=== PATIENT | male | born 1975 | race African-American/Black ===

== ENCOUNTER 2021-11-23 11:19 | Outpatient (CLI) | payer OTHER, SELFPAY ==
[2021-11-23 19:35] LABS: Alanine Aminotransferase 29 U/L (6-50); Albumin Level 4.2 g/dL (3.5-5.1); Alkaline Phosphatase 89 U/L (38-126); Anion Gap 8 mmol/L (8-16); Aspartate Amino Transferase 36 U/L (17-59); Bilirubin,Total 1.7 mg/dL (0.2-1.3); Blood Urea Nitrogen 15 mg/dL (9-20); Calcium 8.9 mg/dL (8.4-10.2); Carbon Dioxide 29 mmol/L (22-30); Chloride 97 mmol/L (98-107); Cholesterol 177 mg/dL (0-200); Estimated Glomerular Filt Rate > 60; Glucose 263 mg/dL (65-110); HDL Direct 56 mg/dL; Potassium 4.1 mmol/L (3.4-5.0); Sodium 134 mmol/L (137-145); Triglycerides 98 mg/dL (<150)
[2021-11-23 19:51] LABS: LDL Cholesterol Direct 76 mg/dL
[2021-11-23 19:57] LABS: Thyroid Stimulating Hormone 0.679 uIU/mL (0.465-4.680)
[2021-11-23 20:04] LABS: HIV 1/2 Ab P24 Ag Result Negative (Negative)
[2021-11-23 20:09] LABS: Basophils Absolute Auto 0.1 K/mm3 (0.0-0.1); Basophils Percent Auto 0.9 % (0.2-1.2); Eosinophils Absolute Auto 0.2 K/mm3 (0-0.3); Eosinophils Percent Auto 2.4 % (0-4.4); Hematocrit 48.8 % (42.0-52.0); Hemoglobin 16.3 g/dL (14.0-18.0); Immature Granulocyte Absolute 0.02 K/mm3 (0.00-0.031); Immature Granulocyte Percent A 0.2 % (0-0.5); Lymphocytes Absolute Auto 2.05 K/mm3 (0.9-3.2); Lymphocytes Percent Auto 25.5 % (18.3-44.2); Mean Corpuscular HGB Conc 33.4 g/dl (32-36); Mean Corpuscular Hemoglobin 27.6 pg (26-34); Mean Corpuscular Volume 82.7 fl (80-100); Mean Platelet Volume 11.1 fl (7.4-10.4); Monocytes Absolute Auto 0.6 K/mm3 (0.1-0.6); Monocytes Percent Auto 7.5 % (2.6-8.5); Neutrophils Absolute Auto 5.1 K/mm3 (1.3-6.7); Neutrophils Percent Auto 63.5 % (45.5-73.1); Platelet Count Result 287 k/mm3 (150-375); Red Cell Distribution Width 12.5 % (11.5-14.5); White Blood Count 8.1 K/mm3 (4.5-10.0)
[2021-11-23 20:43] LABS: Hepatitis B Surface Anti Res Negative; Hepatitis C Virus Antibody Negative (Negative)
[2021-11-24 06:20] LABS: Rapid Plasma Reagin Non-Reactive (NonReactive)
[2021-11-24 13:24] LABS: Hemoglobin A1C 11.2 % (<5.7)
== END 2021-11-23 15:23 | disposition home or self-care (01) ==
PROVIDERS: PCP Nurse Practitioner Family; Visit Provider Nurse Practitioner Family
DX: R73.01 Impaired fasting glucose (principal); I10 Essential (primary) hypertension; R53.83 Other fatigue; E55.9 Vitamin D deficiency, unspecified
CPT/HCPCS: 36415; 80053; 80061; 82306; 83036; 84443; 85025; 86592; 86703; 86706; 86803; 87491; 87591; G0432

== ENCOUNTER 2022-02-08 11:30 | Outpatient (CLI) | payer OTHER, SELFPAY ==
[2022-02-08 18:52] LABS: Hemoglobin A1C 7.4 % (<5.7)
[2022-02-12 19:23] LABS: HIV DNA PCR (Qual) Not Detected (Not Detected)
== END 2022-02-08 11:31 | disposition home or self-care (01) ==
LOC: ANHGOSHLAB 11:32
PROVIDERS: PCP Nurse Practitioner Family; Visit Provider Nurse Practitioner Family
DX: E11.9 Type 2 diabetes mellitus without complications (principal); Z11.3 Encounter for screening for infections with a predominantly sexual mode of transmission
CPT/HCPCS: 36415; 83036; 87535

== ENCOUNTER 2023-04-06 09:26 | Outpatient (CLI) | payer OTHER, SELFPAY ==
[2023-04-06 19:01] LABS: Basophils Absolute Auto 0.1 K/mm3 (0.0-0.1); Basophils Percent Auto 1.2 % (0.2-1.2); Eosinophils Absolute Auto 0.2 K/mm3 (0-0.3); Eosinophils Percent Auto 4.8 % (0-4.4); Hematocrit 49.5 % (42.0-52.0); Hemoglobin 15.8 g/dL (14.0-18.0); Hemoglobin A1C 7.1 % (<5.7); Immature Granulocyte Absolute 0.01 K/mm3 (0.00-0.031); Immature Granulocyte Percent A 0.2 % (0-0.5); Lymphocytes Absolute Auto 1.56 K/mm3 (0.9-3.2); Lymphocytes Percent Auto 31.4 % (18.3-44.2); Mean Corpuscular HGB Conc 31.9 g/dl (32-36); Mean Corpuscular Volume 87.6 fl (80-100); Monocytes Absolute Auto 0.5 K/mm3 (0.1-0.6); Monocytes Percent Auto 9.7 % (2.6-8.5); Neutrophils Absolute Auto 2.6 K/mm3 (1.3-6.7); Neutrophils Percent Auto 52.7 % (45.5-73.1); Platelet Count Result 224 k/mm3 (150-375); Red Blood Count 5.65 M/mm3 (4.6-6.20); Red Cell Distribution Width 13.2 % (11.5-14.5)
[2023-04-06 19:43] LABS: Alanine Aminotransferase 30 U/L (6-50); Alkaline Phosphatase 77 U/L (38-126); Anion Gap 5 mmol/L (8-16); Aspartate Amino Transferase 31 U/L (17-59); Bilirubin,Total 0.6 mg/dL (0.2-1.3); Blood Urea Nitrogen 11 mg/dL (9-20); Calcium 8.9 mg/dL (8.4-10.2); Carbon Dioxide 29 mmol/L (22-30); Chloride 107 mmol/L (98-107); Cholesterol 151 mg/dL (0-200); Estimated Glomerular Filt Rate > 60; Glucose 117 mg/dL (65-110); HDL Direct 56 mg/dL; Potassium 4.4 mmol/L (3.4-5.0); Sodium 141 mmol/L (137-145); Triglycerides 74 mg/dL (<150)
[2023-04-06 19:54] LABS: LDL Cholesterol Direct 62 mg/dL
[2023-04-09 19:10] LABS: PSA, Free 0.36 ng/mL
[2023-04-10 10:42] LABS: Vitamin D 1,25 (OH)2 Total 64 pg/mL (18-72); Vitamin D2 1,25 (OH)2 <8 pg/mL; Vitamin D3 1,25 (OH)2 64 pg/mL
== END 2023-04-06 09:27 | disposition home or self-care (01) ==
LOC: ANHGOSHLAB 09:27
PROVIDERS: PCP Family Medicine; Visit Provider Nurse Practitioner Family
DX: Z00.00 Encounter for general adult medical examination without abnormal findings (principal); Z12.5 Encounter for screening for malignant neoplasm of prostate; E11.9 Type 2 diabetes mellitus without complications; E55.9 Vitamin D deficiency, unspecified; I10 Essential (primary) hypertension
CPT/HCPCS: 36415; 80053; 80061; 82652; 83036; 84153; 84154; 84443; 85025

== ENCOUNTER 2023-09-26 09:51 | Emergency (ER) | payer OTHER, SELFPAY ==
--- NOTE | ~2023-09-26 | XR_ITS ---
EXAMINATION: XR foot LT min 3V DATE: 09/26/2023 11:09 INDICATION: Left foot infection. Assess for osteomyelitis TECHNIQUE: Dorsoplantar, two oblique and lateral views of the left foot were obtained. COMPARISON: None. FINDINGS: There is soft tissue gas extending from the fifth toe proximally along the dorsolateral aspect of the fifth metatarsal to the dorsolateral aspect of the left ankle and hindfoot with overlying soft tissu e swelling which raises concern for necrotizing fasciitis. The proximal most extent gas on the latera l projection is approximately 2 cm above level of the tibiotalar joint line. There is suggestion of c ortical erosion at the dorsal metaphysis at the base of the left fifth proximal phalanx which is susp icious for osteomyelitis. Bone alignment is normal. No fracture. Mild polyarticular osteoarthritis in the left mid and forefoot. IMPRESSION: 1. Cortical erosion at the dorsal base of the left fifth proximal phalanx suspicious for ostomy myeli tis. 2. Soft tissue gas tracking from the fifth toe along the dorsolateral aspect of the left foot and ank le which is concerning for possible necrotizing fasciitis. This and the suspected osteomyelitis were discussed with Dr. Mota at 11:20 AM. Reviewed, dictated and finalized at location A. IMPRESSION: 1. Cortical erosion at the dorsal base of the left fifth proximal phalanx suspi cious for ostomy myelitis. 2. Soft tissue gas tracking from the fifth toe along the dorsolateral aspect of the left foot and ankle which is concerning for possible necrotizing fasciitis . This and the suspected osteomyelitis were discussed with Dr. Mota at 11:20 AM.
[2023-09-26 10:03] VITALS: BP 147/84; PULSE 106; RESP 15; TEMP 36.6; O2SAT 100
--- NOTE | 2023-09-26 10:07 | ED.WOUNDLAC ---
HPI - Wound/Laceration General Chief Complaint: Extremity Injury, Lower <Jordan Guevara APRN - Last Filed: 09/26/23 15:19> Stated Complaint: left foot pain/blisters <Jordan Guevara APRN - Last Filed: 09/26/23 15:19> Time Seen by Provider: 09/26/23 10:00 <Jordan Guevara APRN - Last Filed: 09/26/23 15:19> Source: patient <Jordan Guevara APRN - Last Filed: 09/26/23 15:19> Mode of arrival: ambulatory <Jordan Guevara APRN - Last Filed: 09/26/23 15:19> Limitations: no limitations <Jordan Guevara APRN - Last Filed: 09/26/23 15:19> History of Present Illness HPI narrative: Delvin is a 48-year-old male patient presenting to the emergency room complaints of a wound infection to the left foot. He reports he had blisters to the left foot he pop does blisters on either September 11 3rd September 12. Does have history of diabetes. Has redness and swelling to the left foot and left lower extremity with 2+ pitting edema. Denies any fever but has had some sweats. Wound is draining white clear discharge- smells like Pseudomonas. History of type 2 diabetes, hypertension, anxiety, and IBS-C <Jordan Guevara APRN - Last Filed: 09/26/23 15:19> Related Data Home Medications: Home Medications Medication Instructions Recorded Confirmed ibuprofen 400 mg tablet 400 mg PO .PRN 11/23/21 07/25/23 <Jordan Guevara APRN - Last Filed: 09/26/23 15:19> Allergies/Adverse Reactions: Allergies Allergy/AdvReac Type Severity Reaction Status Date / Time No Known Allergies Allergy Verified 09/26/23 10:07 <Jordan Guevaar APRN - Last Filed: 09/26/23 15:19> Review of Systems Review of Systems: Pertinent positives per HPI. Patient denies any fever, chills, rash, headache, visual changes, dizziness, cough, runny nose, sore throat, shortness of breath, chest pain, palpitations, nausea, vomiting, diarrhea, constipation, abdominal pain, or any urinary issues. 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 There is no relevant family history pertinent to the patient complaint. <Jordan Guevara APRN - Last Filed: 09/26/23 15:19> Exam Narrative: General: Well-developed, morbidly obese, in no apparent distress Head: Normocephalic, atraumatic. Cardio: Regular rate and rhythm, s1 and s2 normal, no murmur a
[2023-09-26 10:38] VITALS: BP 135/83; PULSE 103; RESP 15; O2SAT 98
[2023-09-26 10:44] LABS: Basophils Absolute Auto 0.2 K/mm3 (0.0-0.1); Basophils Percent Auto 0.4 % (0.2-1.2); Hematocrit 38.4 % (42.0-52.0); Hemoglobin 12.5 g/dL (14.0-18.0); Immature Granulocyte Absolute 1.55 K/mm3 (0.00-0.031); Immature Granulocyte Percent A 4.3 % (0-0.5); Lymphocytes Absolute Auto 0.73 K/mm3 (0.9-3.2); Mean Corpuscular HGB Conc 32.6 g/dl (32-36); Mean Corpuscular Hemoglobin 28.1 pg (26-34); Mean Corpuscular Volume 86.3 fl (80-100); Mean Platelet Volume 9.6 fl (7.4-10.4); Monocytes Absolute Auto 1.9 K/mm3 (0.1-0.6); Monocytes Percent Auto 5.4 % (2.6-8.5); Neutrophils Absolute Auto 31.8 K/mm3 (1.3-6.7); Neutrophils Percent Auto 87.9 % (45.5-73.1); Platelet Count Result 433 k/mm3 (150-375); Red Blood Count 4.45 M/mm3 (4.6-6.20); Red Cell Distribution Width 13.3 % (11.5-14.5); White Blood Count 36.2 K/mm3 (4.5-10.0)
[2023-09-26 10:57] LABS: Lactic Acid Reflex 1.4 mmol/L (0.7-2.0)
[2023-09-26] MEDS: metroNIDAZOLE 500 MG/ISO 100ML 500 MG/100 ML BAG 100 MG IVPB (10:57)
[2023-09-26] MEDS: CEFEPIME 2 GM/NS 50 ML 2 GM/50 ML BAG IVPB (10:57)
[2023-09-26 11:08] LABS: INR 1.4; Prothrombin Time 17.8 Seconds (11.1-14.7)
[2023-09-26 11:09] LABS: Partial Thromboplastin Time 32.9 Seconds (22.3-36.8)
[2023-09-26 11:39] LABS: Alanine Aminotransferase 41 U/L (6-50); Albumin Level 3.4 g/dL (3.5-5.1); Alkaline Phosphatase 132 U/L (38-126); Anion Gap 11 mmol/L (4-12); Aspartate Amino Transferase 35 U/L (17-59); Bilirubin,Total 1.1 mg/dL (0.2-1.3); Blood Urea Nitrogen 34 mg/dL (9-20); CRP 38.8 mg/dL (<1.0); Calcium 9.1 mg/dL (8.4-10.2); Carbon Dioxide 21 mmol/L (22-30); Chloride 102 mmol/L (98-107); Estimated CRCL calculation 88 ml/min; Estimated Glomerular Filt Rate > 60; Glucose 293 mg/dL (65-110); Potassium 4.7 mmol/L (3.4-5.0); Sodium 134 mmol/L (137-145)
[2023-09-26] MEDS: VANCOMYCIN 1,250 MG/NS 250 ML 1,250 MG/250 ML BAG 166.67 MG IVPB ×2 (12:04→13:46)
[2023-09-26 12:06] VITALS: BP 139/83; PULSE 96; RESP 15; O2SAT 99
[2023-09-26] MEDS: ONDANSETRON INJ 4 MG/2 ML VIAL IV PUSH (12:35)
[2023-09-26] MEDS: MORPHINE SULFATE (*CRX) 4 MG/ML INJ IV PUSH (12:38)
[2023-09-26 12:40] VITALS: BP 123/84; PULSE 104; RESP 20; O2SAT 100
--- NOTE | 2023-09-26 13:15 | PM.CNGS ---
Assessment and Plan Assessment and plan (1) Necrotizing fasciitis of ankle and foot: Code(s): M72.6 - Necrotizing fasciitis Status: Acute Assessment and Plan: Long discussion with patient and family regarding likely need of amputation, the patient would like transferred to tertiary care facility for further care, will set up for transfer and continued antibiotics (2) Type 2 diabetes mellitus without complications: Onset Date: ~11/2021 Qualifiers: Diabetes mellitus [facility] insulin use: without parts counterman use Qualified Code(s): E11.9 - Type 2 diabetes mellitus without complications Code(s): E11.9 - Type 2 diabetes mellitus without complications Status: Acute Assessment and Plan: will need tight blood sugar control History of Present Illness Consult details Consult date: 09/26/23 Reason for consult: wound care Requesting physician: Jordan Guevara APRN Narrative: The patient is a 48-year-old male with multiple medical issues presenting to the emergency department complaining of worsening left foot infection. The patient reports that he initially had some blisters on his left foot approximately 2 weeks ago. He reports that these blisters popped and he has had worsening drainage, swelling, pain over this time. The patient does have uncontrolled diabetes. Workup in the emergency department, including imaging, is significant for left foot 5th toe osteomyelitis with a necrotizing wound infection. 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 Occupation/Education: occupation Gender identity (if verbalized by the patient): Male Agree to blood products: Yes Meds Home Medications and Allergies Home Medications Medication Instructions Recorded Confirmed Type ibuprofen 400 mg tablet 400 mg PO .PRN 11/23/21 07/25/23 History amlodipine 2.5 mg-benazepril 10 mg 1 cap PO DAILY #90 caps 02/11/23 07/25/23 Rx capsule empagliflozin 25 mg tablet 25 mg PO DAILY #30 tabs 06/24/23 07/25/23 Rx (Jardiance) metformin 500 mg tablet,extended 500 mg PO DAILY #30 tabs 06/24/23 07/25/23 Rx release 24 hr glipizide 2.5 mg tablet, extended 2.5 mg PO DAILY #90 tabs 09/26/23 Rx release 24 hr Allergies Allergy/AdvReac Type Severity Reaction Status Date / Time No Known Allergies Allergy Verified 09/26/23 10:07 Vital Signs Vital Signs - 24 hr 09/26/23 10:03 09/26/23 10:38 09/26/23 12:06 Temperature 36.6 C Pulse Rate 106 H 103 H 96 Respiratory Rate 15 15 15 Blood Pressure 147/84 H 135/83 139/83 Pulse Oximetry 100 98 99 Oxygen Delivery Room Air 09/26/23 12:40 Temperature Pulse Rate 104 H Respiratory Rate 20 Blood Pressure 123/84 Pulse Oximetry 100 Oxygen Delivery Exam Const: General: cooperative, acute distress
[2023-09-26] MEDS: SODIUM CHLORIDE 0.9% IV 1,000 ML 150 ML IV CONT (13:45)
[2023-09-26 13:46] VITALS: BP 136/82; PULSE 100; RESP 19; O2SAT 100
--- NOTE | 2023-09-26 13:59 | PC.NURSE ---
pt accepted at [facility] Placed on waitlist
[2023-09-26 15:43] VITALS: BP 136/86; PULSE 103; RESP 19; TEMP 36.4; O2SAT 100
== END 2023-09-26 15:53 | disposition short-term general hospital (02) ==
PROVIDERS: Emergency Provider Nurse Practitioner Family; PCP Family Medicine
DX: E11.69 Type 2 diabetes mellitus with other specified complication (principal); M72.6 Necrotizing fasciitis; M86.9 Osteomyelitis, unspecified; L03.116 Cellulitis of left lower limb; E11.65 Type 2 diabetes mellitus with hyperglycemia; I10 Essential (primary) hypertension; K58.1 Irritable bowel syndrome with constipation; E66.01 Morbid (severe) obesity due to excess calories; Z68.41 Body mass index [BMI] 40.0-44.9, adult; Z79.84 Long term (current) use of oral hypoglycemic drugs
CPT/HCPCS: 36415; 73630; 80053; 83605; 85025; 85610; 85730; 86140; 87040; 87070; 87077; 87147; 87186; 87205; 96365; 96366; 96367; 96375; 99285; J0692; J1836; J2270; J2405; J3370; J7030

== ENCOUNTER 2023-11-07 19:42 | Emergency (ER) | payer OTHER, SELFPAY ==
--- NOTE | ~2023-11-07 | CT_ITS ---
CT OF right lower extremity EXAMINATION: CT LE RT w con DATE: 11/07/2023 22:56 INDICATION: Diabetic foot ulcer, bullae, history of necrotizing fasciitis TECHNIQUE: Computed tomography (CT) of the right lower extremity was performed with 100 mL Omnipaque 350 intravenous contrast. Automated exposure control and iterative reconstruction technique were empl oyed. The dose-length product was 1197.94 mGy-cm. COMPARISON: None FINDINGS: No fracture or dislocation. Mild Achilles enthesopathy. Mild degenerative change in the kne e and multiple midfoot joints as well as the first MTP joint. No osseous erosion. No suspicious perio steal change. Old anterior calcaneal process fracture. Small lateral cutaneous vesicle at the level o f the fibular head. Mild subcutaneous edema in the lower extremity. Scattered likely venous calcifica tions in the subcutaneous fat of the lower extremity. Mild dermal thickening with more focal subjacen t subcutaneous stranding over the anteromedial ankle. The flexor and extensor tendons are intact. IMPRESSION: Small lateral cutaneous vesicle at the level of the fibular head. No obvious dermal ulceration. No ab scess detected. Anterior medial ankle soft tissue changes may reflect cellulitis in the appropriate c linical context. Reviewed, dictated and finalized at location K. IMPRESSION: Small lateral cutaneous vesicle at the level of the fibular head. No obvious de rmal ulceration. No abscess detected. Anterior medial ankle soft tissue changes may reflect cellulitis in the appropriate clinical context.
[2023-11-07 19:50] VITALS: BP 134/88; PULSE 99; RESP 20; TEMP 36.1; O2SAT 100
[2023-11-07 21:58] LABS: Basophils Absolute Auto 0.1 K/mm3 (0.0-0.1); Eosinophils Absolute Auto 0.2 K/mm3 (0-0.3); Hematocrit 46.1 % (42.0-52.0); Hemoglobin 14.9 g/dL (14.0-18.0); Immature Granulocyte Absolute 0.01 K/mm3 (0.00-0.031); Immature Granulocyte Percent A 0.1 % (0-0.5); Lymphocytes Percent Auto 33.2 % (18.3-44.2); Mean Corpuscular HGB Conc 32.3 g/dl (32-36); Mean Corpuscular Hemoglobin 28.9 pg (26-34); Mean Corpuscular Volume 89.5 fl (80-100); Mean Platelet Volume 10.4 fl (7.4-10.4); Monocytes Absolute Auto 0.6 K/mm3 (0.1-0.6); Monocytes Percent Auto 7.6 % (2.6-8.5); Neutrophils Percent Auto 55.1 % (45.5-73.1); Platelet Count Result 351 k/mm3 (150-375); Red Blood Count 5.15 M/mm3 (4.6-6.20); Red Cell Distribution Width 14.3 % (11.5-14.5); White Blood Count 7.2 K/mm3 (4.5-10.0)
[2023-11-07 22:11] LABS: Anion Gap 8 mmol/L (4-12); Blood Urea Nitrogen 16 mg/dL (9-20); CRP < 0.5 mg/dL (<1.0); Calcium 9.4 mg/dL (8.4-10.2); Carbon Dioxide 30 mmol/L (22-30); Chloride 102 mmol/L (98-107); Estimated CRCL calculation 141 ml/min; Estimated Glomerular Filt Rate > 60; Glucose 96 mg/dL (65-110); Potassium 4.5 mmol/L (3.4-5.0); Sodium 140 mmol/L (137-145)
[2023-11-07 22:24] LABS: Erythrocyte Sedimentation Rate 13 mm/hr (0-20)
--- NOTE | 2023-11-07 22:40 | ED.SKABFB ---
HPI - Skin/Abscess/Foreign Bdy General Chief complaint: Skin/Abscess/Foreign Body Stated complaint: blister/sore to right foot Time Seen by Provider: 11/07/23 21:34 Source: patient Mode of arrival: wheelchair Limitations: no limitations History of Present Illness HPI narrative: This is a 48 year old male that presents to the ER for right foot wound. Reports he first noticed it this morning. He also noticed today that he has a blister on the right leg lateral to the knee. Reports recent history of necrotizing fasciitis of the left lower extremity requiring amputation of the left foot. Reports some drainage of the wound. Denies fevers. Related Data Home Medications Medication Instructions Recorded Confirmed ascorbic acid (vitamin C) 500 mg 500 mg PO DAILY 10/09/23 10/22/23 tablet fluconazole 200 mg tablet 400 mg PO DAILY 10/09/23 10/22/23 insulin glargine 100 unit/mL 10 unit subcut QHS 10/09/23 10/22/23 subcutaneous solution (Lantus U-100 Insulin) lidocaine 4 % topical patch 2 patch topical DAILY 10/09/23 10/22/23 methocarbamol 500 mg tablet 500 mg PO TID 10/09/23 10/22/23 multivitamin with folic acid 400 1 tablet PO DAILY 10/09/23 10/22/23 mcg tablet tirzepatide 2.5 mg/0.5 mL 2.5 mg subcut WEEKLY 10/09/23 10/22/23 subcutaneous pen injector (Mounjaro) Allergies Allergy/AdvReac Type Severity Reaction Status Date / Time lactose Allergy Diarrhea Verified 10/22/23 09:47 Review of Systems Review of Systems: CONSTITUTIONAL: Denies fever SKIN: Reports redness and swelling All systems reviewed & are unremarkable except as noted in HPI and below PMFSH Past Medical History Medical History Anxiety Essential hypertension Irritable bowel syndrome with constipation Type 2 diabetes mellitus without complications (~11/2021) Family History Family History Mother Hypertension Diabetes mellitus Grandparent Hypertension Social History Social History Social History: 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 HEAD: Normocephalic, atraumatic. EYES: EOMI. CHEST: No respiratory distress. HEART: Regular rate EXTREMITIES: Normal range of motion. Left BKA. Right foot with 1cm circular ulceration to the dorsal surface. Normal DP pulse. Normal sensation. Bullae to the right lateral knee SKIN: Warm, dry, no rash. NEURO: No focal deficits. Alert and oriented x3. PSYCH: Normal mood and affect Course Course Emergency Course: Patient and family updated on workup and agree with plan of care Vital Signs Vital signs: Vital Signs Temperature 97 F L 11/07/23 19:50 Pulse Rate 99 11/07/23 19:50 Respiratory Rate 11/07/23 19:50 Blood Pressure 134/88 11/07/23 19:50 Pulse Oximetry 100 11/07/23 19:50 Temperature 97 F L 11/07/23 19:50 Pulse Rate 99 11/07/23 19:50 Respiratory Rate 11/07/23 19:50 Blood Pressure 134/88 11/07/23 19:50 Pulse Oximet
[2023-11-07 22:57] LABS: Creatine Kinase 90 U/L (55-170)
[2023-11-08] MEDS: DOXYCYCLINE HYCLATE 100 MG TABLET PO (00:06)
== END 2023-11-08 00:12 | disposition home or self-care (01) ==
PROVIDERS: Emergency Provider Physician Assistant; PCP Student in an Organized Health Care Education/Training Program
DX: L03.115 Cellulitis of right lower limb (principal); I10 Essential (primary) hypertension; E11.9 Type 2 diabetes mellitus without complications; K58.9 Irritable bowel syndrome, unspecified; Z79.4 Long term (current) use of insulin; Z79.85 Long-term (current) use of injectable non-insulin antidiabetic drugs; Z79.899 Other long term (current) drug therapy
CPT/HCPCS: 36415; 73701; 80048; 82550; 85025; 85652; 86140; 87070; 87077; 87186; 87205; 99284; A9270; Q9967

== ENCOUNTER 2024-04-10 15:21 | Outpatient (CLI) | payer OTHER, SELFPAY ==
[2024-04-10 16:14] LABS: Alanine Aminotransferase 24 U/L (6-50); Albumin Level 4.3 g/dL (3.5-5.1); Alkaline Phosphatase 94 U/L (38-126); Anion Gap 2 mmol/L (4-12); Aspartate Amino Transferase 42 U/L (17-59); Bilirubin,Total 1.5 mg/dL (0.2-1.3); Blood Urea Nitrogen 11 mg/dL (9-20); Calcium 9.4 mg/dL (8.4-10.2); Carbon Dioxide 30 mmol/L (22-30); Chloride 108 mmol/L (98-107); Cholesterol 165 mg/dL (0-200); Estimated Glomerular Filt Rate > 60; Glucose 83 mg/dL (65-110); HDL Direct 48 mg/dL; Potassium 4.5 mmol/L (3.4-5.0); Sodium 140 mmol/L (137-145); Triglycerides 88 mg/dL (<150)
[2024-04-10 16:22] LABS: Hemoglobin A1C 5.9 % (<5.7)
[2024-04-10 16:25] LABS: LDL Cholesterol Direct 69 mg/dL
[2024-04-13 19:18] LABS: Testosterone Free 57.2 pg/mL (46.0-224.0)
[2024-04-13 20:48] LABS: Testosterone Total 359 ng/dL (250-1100)
== END 2024-04-10 15:22 | disposition home or self-care (01) ==
PROVIDERS: PCP Student in an Organized Health Care Education/Training Program; Visit Provider Student in an Organized Health Care Education/Training Program
DX: E11.65 Type 2 diabetes mellitus with hyperglycemia (principal); I10 Essential (primary) hypertension; E66.01 Morbid (severe) obesity due to excess calories; Z68.41 Body mass index [BMI] 40.0-44.9, adult; R53.83 Other fatigue
CPT/HCPCS: 36415; 80053; 80061; 83036; 84402; 84403

== ENCOUNTER 2024-09-13 15:11 | Outpatient (CLI) | payer OTHER, SELFPAY ==
--- OUTSIDE RECORDS SUMMARY | 2024-09-13 15:13 | XMS_ITS | Clinical Summary ---
Author Organization [facility] Address [address] [place] [address] Care Team Providers Care Manager Community Name Role Phone Reji Cantu MD Primary Care Provider Allergies No known active allergies Medications acetaminophen 500 mg capsule Take 2 capsules (1,000 mg total) by mouth every 6 (six) hours 4 Active ascorbic acid (VITAMIN C) 500 mg tablet,chewable Take 1 tablet/chew tab (500 mg total) by mouth daily for 14 days 4 Active enoxaparin (LOVENOX) 40 mg/0.4 mL syringeIndicati ons:Deep Vein Thrombosis Prevention Inject 0.4 mL (40 mg total) under the skin every 12 (twelve) hours 4 Active Additional Information Patient not taking.Reported on 10/26/2023 gabapentin (NEURONTIN) 600 mg tablet Take 1 tablet (600 mg total) by mouth 3 (three) times a day 4 10/07/19 25 Active ibuprofen (ADVIL,MOTRIN) 600 mg tablet Take 1 tablet (600 mg total) by mouth 3 (three) times a day 4 Active lidocaine (ASPERCREME) 4 % adhesive patch,medicated Place 2 patches on the skin daily 4 Active Additional Information Patient not taking.Reported on 10/26/2023 methocarbamoL (ROBAXIN) 500 mg tablet Take 1 tablet (500 mg total) by mouth 3 (three) times a day 4 Active multivitamin with folic acid 400 mcg tablet Take 1 tablet by mouth daily 4 10/08/19 25 Active polyethylene glycol (MIRALAX) 17 gram/dose bulk powderIndicatio ns:constipation Take 17 g by mouth daily 4 Active Additional Information Patient not taking.Reported on 10/26/2023 senna-docusate (PERICOLACE) 8.6-50 mg Take 1 tablet by mouth 2 (two) times a day 4 Active Additional Information Patient not taking.Reported on 10/26/2023 zinc sulfate (ZINCATE) 50 mg zinc (220 mg) capsule Take 1 capsule (220 mg total) by mouth daily for 14 days 4 Active oxyCODONE (ROXICODONE) 5 mg immediate release tabletIndicatio ns:Pain Take 1 tablet (5 mg total) by mouth every 4 (four) hours as needed for pain 4 Active Additional Information Patient not taking.Reported on 11/11/2023 tirzepatide (Mounjaro) 2.5 mg/0.5 mL pen injector Inject 0.5 mL (2.5 mg total) under the skin every 7 days for 30 days, THEN 1 mL (5 mg total) every 7 days. 53 mL 4 11/08/19 25 Active insulin glargine (LANTUS) 100 unit/mL (3 mL) pen for injection Inject 10 Units under the skin nightly 15 mL 4 Active pen needle, diabetic (Pen Needle) 32 gauge x 5/32 needle Use as directed once a day. 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 Admitted at [facility] 09/25-10/10/2023 after presenting with LLE pain and swelling, found to have necrotizing fasciitis s/p BKA 09/25, repeat debridements and 09/27, 09/29 (with additional 5cm resection), 10/03, and 10/04 (formalization). Initial tissue and bone cultures positive for Group B Streptococcus and mixed aerobic and anaerobic micro, tissue and tibia bone cultures 10/03 positive for Burton albicans. Pathology from [facility] formalization on 10/04 showed residual acute osteomyelitis, soft tissue with acute and chronic inflammation and necrosis. 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 A1C 7.5 (09/26) - home medications: metformin 500 mg daily, Jardiance 25 mg daily, Glipizide ER 2.5 mg daily - managed by PCP Dr. Pierre - hold PO home medications, start sensitive scale TID AC and HS 09/27 BG 280-200 overnight, NPO for OR, endocrine consulted 09/28 BG 230-200, Flor check completed for GLP-1 09/29 NPO for OR, BG 90-100, continue current regimen 09/30 noted elevated BG last night and this morning, likely due to being NPO, but will continue to monitor 10/01 BG well controlled throughout the day 10/02 BG continue to be well controlled 140-170 10/03 Endo continues to follow; NPO orders modified 10/04 BG controlled, resume diabetic diet + insulin regimen 10/05-10/06 mild postop hyperglycemia, Endo following; DM education consulted for GLP1 teaching 10/06 however if this does not occur prior to discharge the patient is going to a facility where ongoing education can be performed; no plans to discharge with sglt2 given presentation with nsti ## Discharge Plan [ ] please consult the diabetes nurse educator to meet with him --- to teach how to use GLP-1RA injections <-- ordered 10/06 however is discharging to facility where ongoing education can take place Medication Recommendations (Please use the ADULT END DIABETES DISCHARGE order set): - Mounjaro 2.5 mg SC once weekly for first 4 weeks, after 4 weeks increase dose to 5 mg once weekly - Lantus 10 units Q HS Labs/Frequency to be Monitored: before breakfast and before dinner HbA1c every 3 months or 6 months if appropriate, Urine microalbumin/creatinine test yearly, Cholesterol panel yearly, and Dilated eye exam yearly or sooner as indicated by your provider education specialist. Recommend discontinuing glipizide and metformin at discharge. FSBG checks daily in AM, consider dexcom in outpatient setting Follow up with PCP; provide diabetes center number [phone] at discharge. Patient would like to think over if he would like to stick to PCP vs establish with endocrinology Hypertension 09/27/2023 Assessment & Plan (10/07/2023 9:36 AM CDT): - home medication amlodipine/ benazapril 2.5-10 mg daily - hold home medication for now, BP well- controlled 09/27 BP well controlled 120-110/70-80s, continue to hold home medications 09/28 BP remains well controlled, continue to hold home meds 09/30 130-170/60-90s HR 90s, restarted Amlodipine, will monitor if need to add the Benazapril component 10/01 added Lisinopril 10mg (Home Benazepril 10mg) 10/02-present: BP well controlled, continue current regimen --- transition back to combo regimen on discharge and f/u with PCP or previously established provider for ongoing management Acute pain 09/27/2023 Assessment & Plan (10/07/2023 9:35 AM CDT): - related to surgical procedure - multi-modal medical management -10/03 pain controlled on multimodal pain regimen; continue PO 10/04 pain not controlled post-op, c/o sharp and phantom pain - PRN breakthrough dilaudid + gabapentin increased 10/05 pain remains uncontrolled, given toradol overnight with minimal relief, PRN dilaudid not given - discussed care coordination 10/06 pain control improved Discharge planning issues 09/27/2023 Assessment & Plan (10/09/2023 10:20 AM CDT): - needs related to new mobility issues related to BKA - pending PT/OT, wound evaluation 09/27 OR today 09/28 Cx now growing Group B Strep- ID aware changed abx, return to OR 09/29 for additional cultures 09/29 OR 09/30 cultures pending, will need to return to the OR once the cultures finalize 10/01 awaiting RTOR date 10/02 RTOR 10/03 10/03 Washout only today; RTOR for formalization tomorrow 10/04 formalized, no vac, will discuss DC readiness/wound watch 10/05 barrier to discharge: wound watch, OK to DC Friday 10/06 barrier to discharge: none; Patient is medically stable for discharge, SW/CM updated. Discharge pending insurance authorization 10/07 facility short staffed, transfer cancelled, patient remains stable for discharge 10/08 discharge to [facility] Hyperkalemia 09/27/2023 Assessment & Plan (10/04/2023 2:57 PM CDT): - whole blood K 5.7, EKG - place on telemetry - q 4 hour potassium until corrected - furosemide, lokelma, calcium gluconate x 1 09/27 K 5.5, checked whole blood K 4.1, CTM 09/28 K 4.3 09/29 K 4.6 10/01 K 4.1, will evaluate need for Lokelma 10/02 K 3.9 discontinue Lokalema > RESOLVED Necrotizing fasciitis 09/26/2023 Assessment & Plan (10/07/2023 8:31 AM CDT): Delvin Hall is a 48 year old man with PMH of HTN, T2DM who presented to [facility] ED and then transferred to [facility] ED 09/25 after presenting with 2 weeks of progressively worsening redness and swelling of the left leg, found to have necrotizing infection s/p BKA 09/25. ID consulted for antibiotic recommendations. He popped a blister on the left small toe about 2 weeks before presentation. About 1 week later, developed progressively worsening pain and swelling of the left foot and lower leg, then chills and subjective fevers. Presented to [facility] and then transferred to [facility] 09/25 for surgical evalution of necrotizing fasciitis. CT Left lower extremity 09/25: extensive soft tissue and fascial edema in the left lower extremity with gas predominantly involving the ankle and foot, edema extending to left calf and knee most suspicious for necrotizing fasciitis. Taken emergently to the OR 09/25 for Left BKA. Intraoperatively noted purulent fluid, necrotic muscle, and signs of early osteomyelitis of the foot; guillotine incision made ~15cm below the tibial crest; wound vac placed. Left leg tissue cx 09/25: Group B Streptococcus, mixed aerobic and anaerobic micro Left leg bone cx 09/25: Group B Streptococcus Returned to OR 09/27 for debridement and wound vac exchange; noted bone marrow with signs of possible infection which was sent for culture. Left leg tissue cx 09/27: no growth Went back to OR 09/29 for resection of 5cm of tibia, fibula, and soft tissue. pathology pending Left leg tissue cx 09/29: NGTD Left leg bone cx 09/29: NGTD Underwent LLE washout and wound vac exchange on 10/03. Wound well healing with some early granulation tissue. No signs of infection -Left tibia bone bacterial and mycology cultures - burton albicans -LLE soft tissue culture - burton albicans Went to the OR 10/04 for left BKA formalization -no new cultures obtained -Pathology pending Patient with burton albicans in 3 operative cultures from 10/03, including bone cultures. Given this is in the bone and in multiple cultures, we cannot assume this is a overgrowth or contaminant. We would recommend starting patient on fluconazole. On discussion with primary team, plan is for patient to discharge tomorrow. We would recommend transitioning IV antibiotics to Augmentin and to follow up in ID clinic to discuss pathology results and possible treatment for OM. If pathology comes back as positive, patient will need 6 weeks of antibiotic coverage and 6-12 months of fungal management. Recommendations - 800mg fluconazole PO today. Then start patient on 400mg PO Q24H tomorrow -Transition ceftriaxone and metronidazole to Augmentin 875mg PO Q12H -Will reach out to ID clinic for 2 week follow up. Patient should continue on antibiotics/antifungals until seen in ID clinic -Thank you for allowing us to participate in the care of this patient. For questions or concerns, please do not hesitate to reach out. Assessment & Plan (10/09/2023 10:20 AM CDT): 09/25: OR (Cynthia) LEFT guillotine BKA, wound vac placement. 09/27 returned to the OR, Bone cultures remain NGTD, continue to follow, Vanc trough at 2300, plan return to the OR Tuesday (09/29) for formalization- then 5 days of abx after closure --09/27 OR (Cynthia) Wound debridement, wound Vac change 09/28 Bone & Tissue cultures from OR 09/25 resulted Group B strep, notified ID, stopped Vancomycin and Cefepime, started Ceftriaxone and continue Flagyl, OR Cx from 09/27 NGTD- will continue to follow, NPOpMN for OR tomorrow- will obtain additional bone cultures 09/29: OR (Alcides) LLE segmental resection, proximal bone and tissue cultures, vac placement 09/30 OR cultures pending, WVac intact, will RTOR once cultures finalize, referral to [facility] 10/01 Cx still pending, WVac intact, provided Magnesium Citrate to assure a BM 10/02 plan to return to OR tomorrow for formalization, 09/27 cultures finalized No Growth, 09/29 Cultures still pending 10/03 Culture data from 09/29 remains pending in AM, rolled to OR; washout only d/t lack of culture information, plan to RTOR tomorrow for formalization ---10/03 OR (Cynthia) L BKA washout, [place] exchange 10/04 OR (Marielena): L BKA formalization 10/05 AFVSS, wbc elevated post-op, dressing change today, plan for wound watch x3d, local wound care, pending ampushield receipt 10/06 AFVSS, wbc 12.9 from 13.3, wound unchanged - sutures intact, abx and antifungal regimen per ID, local wound care, pending ampushield receipt --- f/u [facility] for suture removal evaluation 10/25 10/[address] Cultures 09/25 BCX: No Growth Final 09/25 LLE bone - GBS, mixed micros 09/25 L leg tissue - GBS, mixed micros 09/25 LLE muscle - GBS, bacteroides vulgatus, mixed micros 09/25 LLE tissue - GBS, bacteroides vulgatus, mixed micros 09/27 L tibia bone marrow - NG final 09/29 L proximal tibia - NG final 09/29 L proximal fibula - NG final 09/29 L proximal tissue - NG final 10/03 L bone - burton albicans 10/03 LLE tissue - burton albicans Antibiotics Clindamycin (09/25-09/26) Cefepime (09/25- 09/28) Vanc (09/26- 09/28) Flagyl 09/25- 10/06 Ceftriaxone 09/28-10/06 Augmentin 10/06---> outpatient ID f/u Pathology 09/25 Lower extremity, left, below knee amputation - Skin and soft tissue with acute and chronic inflammation and necrosis 09/29 - pending 10/04 - pending Necrotizing soft tissue infection 09/26/2023 Surgical History Surgery Date Site/Laterality Comments BELOW KNEE LEG AMPUTATION Left Medical History Medical History Date Comments Diabetes mellitus (HCC) Hypertension Family History Medical History Relation Name Comments Anesthesia problems Neg Hx Malig Hypertension Neg Hx Malig Hyperthermia Neg Hx Pseudochol deficiency Neg Hx Social History Tobacco Use Types Packs/Day Years Used Date Smoking Tobacco: Never Smokeless Tobacco: Never Tobacco Cessation:Counseling Given: Not Answered AUDIT-C Answer Date Recorded Q1: How often do you have a drink containing alcohol? Never 12/09/2023 Q2: How many drinks containi ng alcohol do you have on a typical day when you are drinking? Patient does not drink Q3: How often do you have si x or more drinks on one occasion? Never 12/09/2023 Hunger Vital Sign Answer Date Recorded Within the past 12 months, y ou worried that your food would run out before you got the money to buy more. Never true 12/09/19 24 Within the past 12 months, t he food you bought just didn't last and you didn't have money to get more. Never true 12/09/2023 Personal Safety Answer Date Recorded Have you ever been in or are you currently in a harmful physical or emotional relationship or is someone making you feel afraid or unsafe? Denies 11/07/2023 Sex and Gender Information Value Date Recorded Sex Assigned at Not on file Legal Sex Male 8:46 AM [employer] Gender Identity Not on file Sexual Orientation Not on file Obstetrics History Last Filed Vital Signs Vital Sign Reading Time Taken Comments Blood Pressure 156/89 01/02/2024 10:00 AM CDT Pulse 90 01/02/2024 10:00 AM CDT Temperature 36.1 C (97 F) 01/02/2024 10:00 AM CDT Respiratory Rate 16 12/09/2023 11:3 4 AM CDT Oxygen Saturation 98% 01/02/2024 10: 00 AM CDT Inhaled Oxygen Concentration - - Weight 116.3 kg (256 lb 6.4 oz) 024 10:00 AM CDT Height 177.8 cm (5' 10) 12/09/2023 11: 34 AM CDT Body Mass Index 36.79 12/09/2023 11:34 AM CDT Plan of Treatment Health Maintenance Due Date Last Done Comments Albumin Creatinine Ratio, Urine 1973 Colon Cancer Screening-Colonoscopy 1973 Depression Screening 1973 Hepatitis C Screening 1973 Prostate Cancer Screening-PSA 1973 Dilated Eye Exam 1973 Foot Exam 1973 DTaP/Tdap/Td Vaccine (1 - Tdap) 01/19/1984 Hepatitis B Screening 1991 Regular Well Visit/Exam 18-64 1991 Pneumococcal vaccine <65 (1 of 2 - PCV) 01/19/1992 Zoster Vaccine (1 of 2) 2023 Hemoglobin A1C 03/28/2024 09/27/2023 Lipid Panel 09/26/2024 09/27/2023 eGFR 10/25/2024 10/26/2023, 09/17, 10/06/2023, Additional history exists Influenza Vaccine (Season Ended) 2024 Procedures Procedure Name Priority Date/Time Associated Diagnosis Comments EGFR Routine 10/26/2023 10:54 AM CDT Other acute osteomyelitis of left tibia (HCC) HEMOGLOBIN A1C Routine 09/27/2023 6:00 AM CDT LIPID PANEL Routine 09/27/2023 6:00 AM CDT from Last 3 Months or Most Recently Relevant to Health Maintenance Results * eGFR (10/26/2023 10:54 AM CDT) eGFR >90 >=60 mL/min/1. 73 m2 Comment: Interpretive Data Reference Interval Normal >/= 90 mL/min/1.73m2 Mildly decreased* 60 - 89 mL/min/1.73m2 Mildly to moderately decreased 45 - 59 mL/min/1.73m2 Moderately to severely decreased 30 - 44 mL/min/1.73m2 Severely decreased 15 - 29 mL/min/1.73m2 Kidney Failure < 15 mL/min/1.73m2 *Relative to young adult level Estimated glomerular filtration rate is determined by the 2020 CKD-EPI equation recommended by the National Kidney Foundation (A Unifying Approach to GFR Estimation: Recommendations of the NKF-ASK Task Force on Reassessing the Inclusion of Race in Diagnosing Kidney Disease, JASN 2020). The CKD-EPI equation should not be used for patients with unstable renal function and has not been validated in children and those over 70. Current interpretive data was last reviewed 2021. Blood 10/26/2023 10:5 4 AM CDT 10/26/2023 1:30 PM CDT us Kimmie Sanches MD LAB BLOOD ORDERABLES Final Result Performing Organization Address [facility] Co de Phone Number [facility] Department [place] [address] * (ABNORMAL) Hemoglobin A1c (09/27/2023 6:00 AM CDT) Hgb A1C 7.5(H) 4.0 - 5.6 % Estimated Average Glucose 169 mg/dL [facility] Comment: The ADA recommends reporting an estimated Average Glucose (eAG) with all Hemoglobin A1c results using the equation derived from a study of 507 normal and diabetic adults. Minority populations were underrepresented and children were not included. (Diabetes Care 2020; 43(S1): S66-S76). The eAG is not equivalent to a fasting glucose. Blood 09/27/2023 6:00 AM CDT 09/27/2023 6:16 AM CDT Tyler Marie MD LAB BLOOD ORDERABLES Danielle l Result Performing Organization Address [facility] Co de Phone Number [facility] [place] [address] * (ABNORMAL) Lipid panel (09/27/2023 6:00 AM CDT) Cholesterol 114 30 - 199 mg/dL Comment: Interpretive Data Ages < or = 19 years Acceptable: <170 mg/dL Borderline high: 170-199 mg/dL High: >or= 200 mg/dL Ages > or = 20 years Desirable: <200 mg/dL Borderline high: 200-239 mg/dL High: >or= 240 mg/dL Literature References: 1. Expert Panel on Integrated Guidelines for Cardiovascular Health and Risk Reduction in Children and Adolescents. Pediatrics 2011;128:S213 2. NCEP Expert Panel. Circulation 2004;110:227 Current Interpretive Data was last revised on 2017. Triglycerides 156(H) <=149 mg/dL [facility] Comment: Interpretive Data Ages < or = 9 years Acceptable: <75 mg/dL Borderline high: 75-99 mg/dL High: >or= 100 mg/dL Ages 10 to 20 years Acceptable: <90 mg/dL Borderline high: 90-129 mg/dL High: >or= 130 mg/dL Ages > or = 20 years Desirable: <150 mg/dL Borderline high: 150-199 mg/dL High: 200-499 mg/dL Very high: >or= 499 mg/dL Literature References: 1. Expert Panel on Integrated Guidelines for Cardiovascular Health and Risk Reduction in Children and Adolescents. Pediatrics 2011;128:S213 2. NCEP Expert Panel. Circulation 2004;110:227 Current Interpretive Data was last revised on 2017. HDL 22(L) >=40 mg/dL [facility] Comment: Interpretive Data Ages < or = 19 years Acceptable: >45 mg/dL Borderline low: 40-45 mg/dL Low: <40 mg/dL Ages > or = 20 years Desirable: >or= 60 mg/dL Low: <40 mg/dL Literature References: 1. Expert Panel on Integrated Guidelines for Cardiovascular Health and Risk Reduction in Children and Adolescents. Pediatrics 2011;128:S213 2. NCEP Expert Panel. Circulation 2004;110:227 Current Interpretive Data was last revised on 2017. LDL, calculated 61 <=129 mg/dL [facility] Comment: Interpretive Data Ages < or = 19 years Acceptable: <110 mg/dL Borderline high: 110-129 mg/dL High: >or= 130 mg/dL Ages > or = 20 years Optimal: <100 mg/dL Near optimal: 100-129 mg/dL Borderline high: 130-159 mg/dL High: >160 mg/dL Literature References: 1. Expert Panel on Integrated Guidelines for Cardiovascular Health and Risk Reduction in Children and Adolescents. Pediatrics 2011;128:S213 2. NCEP Expert Panel. Circulation 2004;110:227 Current Interpretive Data was last revised on 2017. Non-HDL Cholesterol 92 mg/dL [facility] Comment: Interpretive Data Ages < or = 19 years Acceptable: <120 mg/dL Borderline high: 120-144 mg/dL High: >145 mg/dL Ages > or = 20 years When triglycerides are >200 mg/dL, Non-HDL cholesterol is a secondary target of therapy with treatment goals that are 30 mg/dL greater than the LDL cholesterol target. Literature References: 1. Expert Panel on Integrated Guidelines for Cardiovascular Health and Risk Reduction in Children and Adolescents. Pediatrics 2011;128:S213 2. NCEP Expert Panel. Circulation 2004;110:227 Current Interpretive Data was last revised on 2017. Chol/HDL ratio 5 [facility] Blood 09/27/2023 6:00 AM CDT 09/27/2023 6:25 AM CDT us Tyler Marie MD LAB BLOOD ORDERABLES Danielle sibley Result [facility] Department [place] [address] from Last 3 Months or Most Recently Relevant to Health Maintenance Insurance [facility] [employer]O Address: [place] [address] [facility] CHOICE PLUS [facility] H[facility]/PPO Address: [facility] [address] [place] [address] Advance Directives For more information, please contact: [phone] * Full Code (Latest Code Status on File) Date Activated Date Inactivated Comments 09/27/2023 12:45 AM 10/09/2023 8:08 PM Care Teams Manager Community Relationship Specialty Start Date End Date Reji Cantu MD [id number] [facility] [address] [place] [address] PCP - General Family Practice 09/27/23
--- OUTSIDE RECORDS SUMMARY | 2024-09-13 15:13 | XMS_ITS | Referral Summary ---
Author Organization [facility] Address [address] [place] [address] Care Team Providers Care Senior Data Quality Analyst Name Role Phone Reji Cantu MD Primary [...] old man who was recently admitted at [facility] 09/25- 10/09/2023 with LLE necrotizing fascitis s/p BKA complicated by residual bacterial and fungal osteomyelitis who presents to the ID clinic for follow-up. Admitted at [facility] 09/25-10/10/2023 after presenting with LLE pain and swelling, found to have necrotizing fasciitis s/p BKA 09/25, repeat debridements and 09/27, 09/29 (with additional 5cm resection), 10/03, and 10/04 (formalization). Initial tissue and bone cultures positive for Group B Streptococcus and mixed aerobic and anaerobic micro, tissue and tibia bone cultures 10/03 positive for Burton albicans. Pathology from [facility] formalization on 10/04 showed residual acute osteomyelitis, [...] yearly or sooner as indicated by your eyelet maker. Recommend discontinuing glipizide and metformin at discharge. FSBG checks daily in AM, consider dexcom in outpatient setting Follow up with PCP; provide diabetes center number [phone] at discharge. Patient would like to think [...] remains stable for discharge 10/08 discharge to [facility] Hyperkalemia 09/27/2023 Assessment & Plan (10/04/2023 2:57 [...] to OSH ED and then transferred to [facility] ED 09/25 after presenting with 2 weeks [...] then chills and subjective fevers. Presented to [facility] and then transferred to [facility] 09/25 for surgical evalution of necrotizing fasciitis. [...] will RTOR once cultures finalize, referral to 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 The CKD-EPI equation should not be used for patients with unstable renal function and has not been validated in children and those over 70. Current interpretive data was last reviewed 2021. Blood 10/26/2023 10:5 4 AM CDT 10/26/2023 1:30 PM CDT us Kimmie Sanches MD LAB BLOOD ORDERABLES Final Result [facility] [place] [address] * (ABNORMAL) Hemoglobin A1c (09/27/2023 6:00 AM CDT) Hgb A1C 7.5(H) 4.0 - 5.6 % Estimated Average Glucose 169 mg/dL [facility] Comment: The ADA recommends reporting an estimated Average Glucose (eAG) with all Hemoglobin A1c results using the equation derived from a study of 507 normal and diabetic adults. Minority populations were underrepresented and children were not included. (Diabetes Care 2020; 43(S1): S66-S76). The eAG is not equivalent to a fasting glucose. Blood 09/27/2023 6:00 AM CDT 09/27/2023 6:16 AM CDT us Tyler Marie MD LAB BLOOD ORDERABLES Danielle l Result [facility] [place] [address] * (ABNORMAL) Lipid panel (09/27/2023 6:00 AM [...] revised on 2017. Triglycerides 156(H) <=149 mg/dL [facility] Comment: Interpretive Data Ages < or = [...] on 2017. HDL 22(L) >=40 mg/dL [facility] Comment: Interpretive Data Ages < or = [...] on 2017. LDL, calculated 61 <=129 mg/dL [facility] Comment: Interpretive Data Ages < [...] revised on 2017. Non-HDL Cholesterol 92 mg/[facility] Comment: Interpretive Data Ages < or = [...] last revised on 2017. Chol/HDL ratio 5 [facility] Blood 09/27/2023 6:00 AM CDT 09/27/2023 6:25 AM CDT Tyler Marie MD LAB BLOOD ORDERABLES Danielle sibley Result [facility] Department [place] [address] from Last 3 Months or Most Recently Relevant to Health Maintenance Insurance [facility] CHOICE PLUS [facility] CHOICE PLUS Advance Directives For more information, please contact: [phone] * Full Code (Latest Code Status on File) Date Activated Date Inactivated Comments 09/27/2023 12:45 AM 10/09/2023 8:08 PM Care Teams Senior Data Quality Analyst Relationship Specialty Start Date End Date Reji Cantu MD [address] [facility] [place] [address] [place] [address] PCP - General Family Practice 09/27/23
[2024-09-13 20:07] LABS: Alanine Aminotransferase 22 U/L (6-50); Albumin Level 3.8 g/dL (3.5-5.1); Alkaline Phosphatase 89 U/L (38-126); Anion Gap 8 mmol/L (4-12); Aspartate Amino Transferase 29 U/L (17-59); Bilirubin,Total 1.4 mg/dL (0.2-1.3); Blood Urea Nitrogen 12 mg/dL (9-20); Calcium 9.4 mg/dL (8.4-10.2); Carbon Dioxide 29 mmol/L (22-30); Chloride 105 mmol/L (98-107); Cholesterol 155 mg/dL (0-200); Estimated Glomerular Filt Rate > 60; Glucose 95 mg/dL (65-110); HDL Direct 48 mg/dL; Potassium 3.9 mmol/L (3.4-5.0); Sodium 142 mmol/L (137-145); Triglycerides 90 mg/dL (<150)
[2024-09-13 20:18] LABS: LDL Cholesterol Direct 53 mg/dL
[2024-09-13 20:27] LABS: Creatinine Urine 83.2 mg/dL
[2024-09-13 20:27] LABS: Basophils Absolute Auto 0.1 K/mm3 (0.0-0.1); Basophils Percent Auto 0.5 % (0.2-1.2); Eosinophils Absolute Auto 0.4 K/mm3 (0-0.3); Eosinophils Percent Auto 3.2 % (0-4.4); Hematocrit 45.5 % (42.0-52.0); Hemoglobin 14.4 g/dL (14.0-18.0); Immature Granulocyte Absolute 0.05 K/mm3 (0.00-0.031); Immature Granulocyte Percent A 0.4 % (0-0.5); Lymphocytes Percent Auto 10.8 % (18.3-44.2); Mean Corpuscular HGB Conc 31.6 g/dl (32-36); Mean Corpuscular Hemoglobin 27.6 pg (26-34); Mean Corpuscular Volume 87.2 fl (80-100); Mean Platelet Volume 10.7 fl (7.4-10.4); Monocytes Absolute Auto 1.2 K/mm3 (0.1-0.6); Neutrophils Absolute Auto 9.9 K/mm3 (1.3-6.7); Neutrophils Percent Auto 76.1 % (45.5-73.1); Platelet Count Result 280 k/mm3 (150-375); Red Blood Count 5.22 M/mm3 (4.6-6.20); Red Cell Distribution Width 13.1 % (11.5-14.5)
[2024-09-13 20:31] LABS: MALB Creatinine Ratio 15.7 mg/g (0-30); Microalbumin Urine Random 13.1 mg/L (0-16.7)
[2024-09-13 20:35] LABS: Prostate Specific Antigen 1.2 ng/mL (< OR = 4.0)
[2024-09-13 21:59] LABS: Hemoglobin A1C 6.4 % (<5.7)
== END 2024-09-13 15:12 | disposition home or self-care (01) ==
LOC: ANHGOSHLAB 15:11
PROVIDERS: PCP Student in an Organized Health Care Education/Training Program; Visit Provider Student in an Organized Health Care Education/Training Program
DX: Z13.220 Encounter for screening for lipoid disorders (principal); Z12.5 Encounter for screening for malignant neoplasm of prostate; E11.65 Type 2 diabetes mellitus with hyperglycemia; I10 Essential (primary) hypertension; R53.83 Other fatigue
CPT/HCPCS: 36415; 80053; 80061; 82043; 82607; 83036; 84153; 84443; 85025; G0103

== ENCOUNTER 2024-09-13 15:33 | Outpatient (CLI) | payer OTHER, SELFPAY ==
--- NOTE | ~2024-09-13 | XR_ITS ---
Right foot Technique: AP, oblique, and lateral views were obtained. Clinical History: Puncture wound Findings: No acute fracture or dislocation is seen. Osseous alignment is anatomic. Joint spaces are p reserved without erosive or degenerative change. Soft tissues are unremarkable. Impression: Unremarkable right foot radiographs. No radiopaque foreign body seen. Reviewed, dictated and finalized at [facility]. Impression: Unremarkable right foot radiographs. No radiopaque foreign body seen.
== END 2024-09-13 15:34 | disposition home or self-care (01) ==
LOC: GOSHIMG 15:33
PROVIDERS: PCP Student in an Organized Health Care Education/Training Program; Visit Provider Student in an Organized Health Care Education/Training Program
DX: S91.339A Puncture wound without foreign body, unspecified foot, initial encounter (principal); X58.XXXA Exposure to other specified factors, initial encounter
CPT/HCPCS: 73620

== ENCOUNTER 2024-09-17 00:37 | Inpatient (IN) | payer OTHER, SELFPAY ==
[2024-09-17] VITALS (19 sets, daily range): BP systolic 109–163; BP diastolic 56–94; PULSE 111–131; RESP 16–28; TEMP 36.8–38.6; O2SAT 97–100; BMI 38.9
--- NOTE | ~2024-09-17 | XR_ITS ---
XR chest PICC line 09/21/2024 15:23 Indication: PICC line placement Procedure: AP portable chest Comparison: No prior studies for comparison. Findings: PICC line tip in the SVC. Elevated right diaphragm. Borderline heart size. Mild interstitia l edema. Impression: 1: Mild interstitial edema. Reviewed, dictated and finalized at location A. Impression: 1: Mild interstitial edema.
--- NOTE | ~2024-09-17 | CT_ITS ---
Noncontrast CT scan of the right foot CLINICAL HISTORY: plantar wound, history of necrotizing fasciitis TECHNIQUE: Axial noncontrast imaging of the right foot was performed. Sagittal and coronal reformatte d images were constructed. Dose reduction technique was used on this scan by utilizing automated expo sure control and iterative reconstruction technique. The dose-length product (DLP) was 573.93 mGy-cm. Findings: No acute fracture or dislocation seen. No definite cortical or osseous destructive change s een to suggest osteomyelitis at this time. No periosteal reaction identified. Visualized joint spaces are intact throughout the foot. No definite joint effusion identified. There is soft tissue gas and edema at the dorsal aspect of the forefoot, especially at the fourth int erspace region, with additional possible puncture wound or ulcer at the plantar aspect of the foot ne ar the fifth MTP joint region. Soft tissue gas extends proximally to the region of the proximal third metatarsal shaft. There is additional irregular fluid at the dorsal aspect of the foot which could r eflect phlegmonous change or possibly poorly delineated abscess. IMPRESSION: Extensive soft tissue gas and fluid/edema predominantly the dorsal aspect of the forefoot, especially from the region of the fourth interspace extending proximally to the level of the proximal third met atarsal shaft. Findings raise suspicion for soft tissue gas forming infection/necrotizing fasciitis w ith associated phlegmon and developing irregular abscess in the dorsal aspect of the forefoot. Additional possible wound or ulcer at the fifth MTP joint region at the plantar aspect of the foot. No CT evidence for osteomyelitis. Reviewed, dictated and finalized at location . IMPRESSION: Extensive soft tissue gas and fluid/edema predominantly the dorsal aspect of th e forefoot, especially from the region of the fourth interspace extending proxi fazal to the level of the proximal third metatarsal shaft. Findings raise suspi cion for soft tissue gas forming infection/necrotizing fasciitis with associate d phlegmon and developing irregular abscess in the dorsal aspect of the forefoo t. Additional possible wound or ulcer at the fifth MTP joint region at the plantar aspect of the foot. No CT evidence for osteomyelitis.
--- NOTE | ~2024-09-17 | US_ITS ---
EXAMINATION:US venous doppler LE RT INDICATION:Elevated d-dimer TECHNIQUE: Multiple grayscale, color flow and Doppler images of the right lower extremity deep venous systems were obtained and reviewed. COMPARISON:No prior studies for comparison. FINDINGS: The common femoral, superficial femoral and popliteal veins demonstrate normal respiratory variation, augmentation and compressibility. Color flow is also seen within the posterior tibial, pe roneal, greater saphenous and profunda veins. IMPRESSION: 1: No lower extremity deep venous thrombosis. Reviewed, dictated and finalized at location A.
--- OUTSIDE RECORDS SUMMARY | 2024-09-17 00:39 | XMS_ITS | Referral Summary ---
Author Organization [facility] Address [address] [place] [address] Care Team Providers Care Mason Helper Name Role Phone Reji Cantu MD Primary [...] old man who was recently admitted at [facility] 09/25- 10/09/2023 with LLE necrotizing fascitis s/p BKA complicated by residual bacterial and fungal osteomyelitis who presents to the ID clinic for follow-up. Admitted at [facility] 09/25-10/10/2023 after presenting with LLE pain and swelling, found to have necrotizing fasciitis s/p BKA 09/25, repeat debridements and 09/27, 09/29 (with additional 5cm resection), 10/03, and 10/04 (formalization). Initial tissue and bone cultures positive for Group B Streptococcus and mixed aerobic and anaerobic micro, tissue and tibia bone cultures 10/03 positive for Burton albicans. Pathology from [facility] formalization on 10/04 showed residual acute osteomyelitis, [...] yearly or sooner as indicated by your business control specialist. Recommend discontinuing glipizide and metformin at discharge. FSBG checks daily in AM, consider dexcom in outpatient setting Follow up with PCP; provide diabetes center number [phone] at discharge. Patient would like to think [...] remains stable for discharge 10/08 discharge to [facility] Hyperkalemia 09/27/2023 Assessment & Plan (10/04/2023 2:57 [...] to OSH ED and then transferred to [facility] ED 09/25 after presenting with 2 weeks [...] then chills and subjective fevers. Presented to [facility] and then transferred to [facility] 09/25 for surgical evalution of necrotizing fasciitis. 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 Gender Identity Not on file Sexual Orientation [...] Sanches MD LAB BLOOD ORDERABLES Final Result [facility] Department [place] [address] * (ABNORMAL) Hemoglobin A1c (09/27/2023 6:00 AM CDT) Hgb A1C 7.5(H) 4.0 - 5.6 % Estimated Average Glucose 169 mg/dL [facility] Comment: The ADA recommends reporting an estimated [...] ORDERABLES Danielle l Result [facility] Department [place] [address] * (ABNORMAL) Lipid panel (09/27/2023 6:00 AM [...] on 2017. Triglycerides 156(H) <=149 mg/dL [facility] Comment: Interpretive Data Ages < or = [...] on 2017. HDL 22(L) >=40 mg/dL [facility] Comment: Interpretive Data Ages < or = [...] on 2017. LDL, calculated 61 <=129 mg/dL [facility] Comment: Interpretive Data Ages < [...] revised on 2017. Non-HDL Cholesterol 92 mg/[facility] Comment: Interpretive Data Ages < or = [...] last revised on 2017. Chol/HDL ratio 5 [facility] Blood 09/27/2023 6:00 AM CDT 09/27/2023 6:25 AM CDT Tyler Marie MD LAB BLOOD ORDERABLES Danielle sibley Result [facility] [place] [address] from Last 3 Months or Most Recently Relevant to Health Maintenance Insurance [facility] CHOICE PLUS [facility] CHOICE PLUS Advance Directives For more information, please contact: [phone] * Full Code (Latest Code Status on File) Date Activated Date Inactivated Comments 09/27/2023 12:45 AM 10/09/2023 8:08 PM Care Teams Mason Helper Relationship Specialty Start Date End Date Reji Cantu MD [address] [facility] [place] [address] [place] [address] PCP - General Family Practice 09/27/23
--- OUTSIDE RECORDS SUMMARY | 2024-09-17 00:39 | XMS_ITS | Clinical Summary ---
Author Organization [facility] Address [address] [place] [address] Care Team Providers Care Yarn Dry Room Worker Name Role Phone Reji Cantu MD Primary [...] old man who was recently admitted at [facility] 09/25- 10/09/2023 with LLE necrotizing fascitis s/p BKA complicated by residual bacterial and fungal osteomyelitis who presents to the ID clinic for follow-up. Admitted at [facility] 09/25-10/10/2023 after presenting with LLE pain and swelling, found to have necrotizing fasciitis s/p BKA 09/25, repeat debridements and 09/27, 09/29 (with additional 5cm resection), 10/03, and 10/04 (formalization). Initial tissue and bone cultures positive for Group B Streptococcus and mixed aerobic and anaerobic micro, tissue and tibia bone cultures 10/03 positive for Burton albicans. Pathology from [facility] formalization on 10/04 showed residual acute osteomyelitis, [...] yearly or sooner as indicated by your flight operations specialist. Recommend discontinuing glipizide and metformin at discharge. FSBG checks daily in AM, consider dexcom in outpatient setting Follow up with PCP; provide diabetes center number [phone] at discharge. Patient would like to think [...] remains stable for discharge 10/08 discharge to [facility] Hyperkalemia 09/27/2023 Assessment & Plan (10/04/2023 2:57 [...] to OSH ED and then transferred to [facility] ED 09/25 after presenting with 2 weeks [...] then chills and subjective fevers. Presented to [facility] and then transferred to [facility] 09/25 for surgical evalution of necrotizing fasciitis. 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 Gender Identity Not on file Sexual Orientation [...] BLOOD ORDERABLES Final Result Performing Organization Address [facility] Co de Phone Number [facility] Department [place] [address] * (ABNORMAL) Hemoglobin A1c (09/27/2023 6:00 AM CDT) Hgb A1C 7.5(H) 4.0 - 5.6 % Estimated Average Glucose 169 mg/dL [facility] Comment: The ADA recommends reporting an estimated [...] ORDERABLES Danielle l Result Performing Organization Address [facility] Co de Phone Number [facility] [place] [address] * (ABNORMAL) Lipid panel (09/27/2023 6:00 AM [...] revised on 2017. Triglycerides 156(H) <=149 mg/dL [facility] Comment: Interpretive Data Ages < or = [...] on 2017. HDL 22(L) >=40 mg/dL [facility] Comment: Interpretive Data Ages < or = [...] 2017. LDL, calculated 61 <=129 mg/dL [facility] Comment: Interpretive Data Ages < or = [...] LAB BLOOD ORDERABLES Danielle sibley Result [facility] Department [place] [address] from Last 3 Months or Most Recently Relevant to Health Maintenance Insurance [facility] Address: [place] [address] [facility] CHOICE PLUS [facility] H[facility]/PPO Address: [facility] [address] [place] [address] Advance Directives For more information, please contact: [phone] * Full Code (Latest Code Status on File) Date Activated Date Inactivated Comments 09/27/2023 12:45 AM 10/09/2023 8:08 PM Care Teams Yarn Dry Room Worker Relationship Specialty Start Date End Date Reji Cantu MD [address] [facility] [place] [address] [place] [address] PCP - General Family Practice 09/27/23
--- NOTE | 2024-09-17 02:30 | ED_ITS ---
HPI - Wound/Laceration General Chief Complaint: Wound/Laceration Stated Complaint: diabetic ulcer/wound on R foot - on ABX Time Seen by Provider: 09/17/24 02:20 Source: patient and family Mode of arrival: ambulatory Limitations: no limitations History of Present Illness HPI narrative: Patient prsents with a diabetic ulcer/wound on plantar aspect of his R foot. Saw his PCP Aram Das for this who ordered labs and Xray which were done but have not received follow up on yet. Placed on Antibiotic cephalexin which he started taking Tuesday PM. There had been ecchymosis which resolved. The pain and swelling had been going down but today when getting into shower when he noticed some weeping from dorsum of right foot. History of a similar wound on left foot that had been more significant, malodorous and was ultimately necrotizing fasciitis requiring amputation (Left BKA) performed at [facility] approximately 1 year ago. Currently on fluconazole. Non insulin dependent; DM regimen includes Jardijacobo Monjaro (recently changed from 2.5 to 5.0). Previously on Lantus but became hypoglycemic and this was discontinued end of . Metformin has also been discontinued. Patient has a referral to an grapple operator. Last HA1c 6.7%. Takes lisinopril and amlodipine for HTN (lisinopril dose recently increased). Related Data Home Medications ?Medication ?Instructions ?Recorded ?Confirmed ?Last Taken ?Type fluconazole 200 mg tablet 400 mg PO DAILY 10/09/23 09/17/24 09/16/24 History insulin glargine 100 unit/mL 10 unit subcut QHS 10/09/23 09/17/24 Unknown History subcutaneous solution (Lantus U-100 Insulin) multivitamin with folic acid 400 1 tablet PO DAILY 10/09/23 09/17/24 09/16/24 History mcg tablet Allergies Allergy/AdvReac Type Severity Reaction Status Date / Time lactose Allergy Diarrhea Verified 09/17/24 15:18 [facility] Past Medical History Medical History History of necrotizing fasciitis Left foot Type 2 diabetes mellitus Anxiety Irritable bowel syndrome with constipation Essential hypertension Surgical History Surgical History Hx of left BKA 2024, [place] Family History Family History Mother Hypertension Diabetes mellitus Grandparent Hypertension Social History Social History Social History: 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 HEAD: Normocephalic, atraumatic. EYES: Non injected, non icteric ENT: Nares clear, no rhinorrhea or epistaxis. Gross auditory acuity intact. NECK: Supple. No meningismus. CHEST: Speaking in full sentences. No respiratory distress. HEART: Tachycardic rate and rhythm. . ABDOMEN: Obese but Soft, nondistended. EXTREMITIES: Left BKA. RIght foot with 3+ edema in the foot, 2+ distal tibia. SKIN: Warm, dry. Plantar wound right foot, probes slightly on exam. Dorsum of foot with skin tear and slight weeping. NEURO: No focal deficits. Alert and oriented. Answering questions. Following commands. Normal speech without aphasia or dysarthria. PSYCH: Normal mood and affect. Course Vital Signs Vital signs: Vital Signs Temperature 99.5 F 09/17/24 00:39 Pulse Rate 128 H 09/17/24 00:39 Respiratory Rate 17 09/17/24 00:39 Blood Pressure 136/94 H 09/17/24 00:39 Pulse Oximetry 100 09/17/24 00:39 Oxygen Delivery Room Air 09/17/24 00:39 Temperature 98.2 F 09/20/24 05:13 Pulse Rate 97 09/20/24 05:13 Respiratory Rate 16 09/20/24 05:13 Blood Pressure 131/66 09/20/24 05:13 Pulse Oximetry 94 09/20/24 05:13 Oxygen Delivery Room Air 09/19/24 20:00 Oxygen Flow Rate 10 09/17/24 18:15 MDM - Wound/Laceration MDM Narrative Medical decision making narrative: 49 yo Patient with T2DM presents with right foot wound. Started with plantar wound, currently on cephalexin Rx by PCP. Swelling and pain improving with this but tonight noticed dorsum now with weeping wound. Not malodorous. History of somewhat similar left foot wound complicated by necrotizing fascitis requiring L BKA last year (2023) at [facility]. In the emergency department he is afebrile with vital signs notable for tachycardia of elevated diastolic blood pressure. IV fluids ordered. Patient has hypokalemia. Will replete and order magnesium lab. He has hyperglycemia with a slight anion gap but not frankly acidotic. BNP is mildly elevated but not to a degree to suggest acute heart failure based on the reference range of the assay for patient's age. Marked leukocytosis. Lactic acid also elevated. 2nd L fluids ordered. CT findings concerning for necrotizing fasciitis. Vancomycin, pigtail, clindamycin ordered. Patient already has blood culture and wound cultures pending. Elevated CRP. D-dimer is elevated but unable to obtain ultrasound study at this hour. Ordered if patient still here this morning but will attempt to transfer patient in interim given history of similar requiring transfer to [facility]. Updated patient at bedside. They note he was managed by Dr Marie at [facility] during last admission. Discussed with [facility] General Surgeon Dr Matteo Noble at approximately 04:20 who is recommending I discuss with our general surgeon. Ketonuria and glucosuria on UA. ESR elevated. Spoke with Dr. Sims general surgeon who does accept the consultation to keep patient here with medicine admission, felt less likely to be necrotizing fasciiitis but will likely require debridement/exploration and possible amputation of distal foot.. Type and screen NPO orders placed. Spoke with Delmy QUEEN for blood bank order control clerk hospitalist. Admission accepted. Patient otehrwise in stable condition. Differential Diagnosis Differential diagnosis: Likely other (Wound/diabetic foot wound -possibly infected, acute heart failure, osteomyelitis; DVT; necrotizing fasciitis) Medical Records Attestation: I reviewed the patient's medical records. Medical records narrative: Reviewed previous ED visit that invovled the left foot wound and the resultant transfer to [facility]. Lab Data 09/19/24 05:22 09/19/24 05:22 Labs: Lab Results 09/17/24 09/17/24 09/17/24 Range/Units 03:06 03:32 07:44 WBC 29.5 H (4.5-10.0) K/mm3 RBC 5.01 (4.6-6.20) M/mm3 Hgb 13.7 L (14.0-18.0) g/dL Hct 42.9 (42.0-52.0) % MCV 85.6 (80-100) fl MCH 27.3 (26-34) pg MCHC 31.9 L (32-36) g/dl RDW 13.4 (11.5-14.5) % Plt Count 353 (150-375) k/mm3 MPV 10.9 H (7.4-10.4) fl Immature Gran % (Auto) 3.3 H (0-0.5) % Neut % (Auto) 84.7 H (45.5-73.1) % Lymph % (Auto) 4.3 L (18.3-44.2) % Jerome % (Auto) 7.1 (2.6-8.5) % Eos % (Auto) 0.2 (0-4.4) % Baso % (Auto) 0.4 (0.2-1.2) % Lymph # (Auto) 1.27 (0.9-3.2) K/mm3 Jerome # (Auto) 2.1 H (0.1-0.6) K/mm3 Eos # (Auto) 0.1 (0-0.3) K/mm3 Baso # (Auto) 0.1 (0.0-0.1) K/mm3 Abs Immat Gran (auto) 0.98 H (0.00-0.031) K/mm3 Absolute Neuts (auto) 25.0 H (1.3-6.7) K/mm3 Absolute Nucleated RBC 0.000 (0.0-0.012) K/mm3 Nucleated RBC % 0.0 (0.0-0.2) % ESR 23 H (0-20) mm/hr PT 16.4 H (11.1-14.7) Seconds INR 1.3 APTT 37.5 H (22.3-36.8) Seconds D-Dimer 2.85 H (<0.48) ug/mL Sodium 143 (137-145) mmol/L Potassium 3.2 L (3.4-5.0) mmol/L Chloride 105 (98-107) mmol/L Carbon Dioxide 24 (22-30) mmol/L Anion Gap 14 H (4-12) mmol/L BUN 17 (9-20) mg/dL Creatinine 1.05 (0.7-1.3) mg/dL Estim Creat Clear Calc 97 ml/min Estimated GFR > 60 (59 - ) Glucose 215 H (65-110) mg/dL POC Capillary Glucose 169 H (65-105) mg/dl Lactic Acid 2.5 H (0.7-2.0) mmol/L Calcium 9.4 (8.4-10.2) mg/dL Magnesium 1.9 (1.6-2.3) mg/dL C-Reactive Protein 37.0 H (<1.0) mg/dL NT-Pro-B Natriuret Pep 292 H (19.9-100) pg/mL Urine Color Yellow (Yellow) Urine Appearance Clear (Clear) Urine pH 5.0 (5.0-9.0) Ur Specific Pinckney 1.043 H (1.001-1.035) Urine Protein Trace (Negative) mg/dL Urine Glucose (UA) 3+ H (Negative) mg/dL Urine Ketones 2+ H (Negative) mg/dL Ur Blood (Man) Negative (Negative) Urine Nitrate Negative (Negative) Urine Bilirubin Negative (Negative) Urine Urobilinogen 1.0 (<2.0) mg/dL Leukocyte Esterase Rfl Negative (Negative) YAMILEX/UL Urine RBC 0-2 (0-2) /hpf Urine WBC 0-5 (0-3) /hpf Ur Squamous Epith Cells None seen (Few) /hpf Urine Bacteria None seen /hpf Urine Casts 0-2 Blood Type Antibody Screen 09/17/24 Range/Units 07:57 WBC (4.5-10.0) K/mm3 RBC (4.6-6.20) M/mm3 Hgb (14.0-18.0) g/dL Hct (42.0-52.0) % MCV (80-100) fl MCH (26-34) pg MCHC (32-36) g/dl RDW (11.5-14.5) % Plt Count (150-375) k/mm3 MPV (7.4-10.4) fl Immature Gran % (Auto) (0-0.5) % Neut % (Auto) (45.5-73.1) % Lymph % (Auto) (18.3-44.2) % Jerome % (Auto) (2.6-8.5) % Eos % (Auto) (0-4.4) % Baso % (Auto) (0.2-1.2) % Lymph # (Auto) (0.9-3.2) K/mm3 Jerome # (Auto) (0.1-0.6) K/mm3 Eos # (Auto) (0-0.3) K/mm3 Baso # (Auto) (0.0-0.1) K/mm3 Abs Immat Gran (auto) (0.00-0.031) K/mm3 Absolute Neuts (auto) (1.3-6.7) K/mm3 Absolute Nucleated RBC (0.0-0.012) K/mm3 Nucleated RBC % (0.0-0.2) % ESR (0-20) mm/hr PT (11.1-14.7) Seconds INR APTT (22.3-36.8) Seconds D-Dimer (<0.48) ug/mL Sodium (137-145) mmol/L Potassium (3.4-5.0) mmol/L Chloride (98-107) mmol/L Carbon Dioxide (22-30) mmol/L Anion Gap (4-12) mmol/L BUN (9-20) mg/dL Creatinine (0.7-1.3) mg/dL Estim Creat Clear Calc ml/min Estimated GFR (59 - ) Glucose (65-110) mg/dL POC Capillary Glucose (65-105) mg/dl Lactic Acid 1.0 (0.7-2.0) mmol/L Calcium (8.4-10.2) mg/dL Magnesium (1.6-2.3) mg/dL C-Reactive Protein (<1.0) mg/dL NT-Pro-B Natriuret Pep (19.9-100) pg/mL Urine Color (Yellow) Urine Appearance (Clear) Urine pH (5.0-9.0) Ur Specific Pinckney (1.001-1.035) Urine Protein (Negative) mg/dL Urine Glucose (UA) (Negative) mg/dL Urine Ketones (Negative) mg/dL Ur Blood (Man) (Negative) Urine Nitrate (Negative) Urine Bilirubin (Negative) Urine Urobilinogen (<2.0) mg/dL Leukocyte Esterase Rfl (Negative) YAMILEX/UL Urine RBC (0-2) /hpf Urine WBC (0-3) /hpf Ur Squamous Epith Cells (Few) /hpf Urine Bacteria /hpf Urine Casts Blood Type A Positive Antibody Screen Negative Imaging Data Attestation: I personally reviewed and interpreted this imaging study as follows: My impression: I do appreciate gas within the dorsal aspect of the foot my independent interpretation of CT Radiologist's impression: CT Right Foot Stat Rad: Soft tissue wound along the lateral aspect of the forefoot at the plantar aspect of the 5th MTP joint. There is the deep fascial and subcutaneous soft tissue gas adjacent to the 5th MTP joint extending to the dorsal deep fascial and subcutaneous soft tissues of the forefoot at the level of the metatarsals. The most proximal extent of gas is to the level of the base of the 3rd metatarsal. These findings are consistent with necrotizing fasciitis. Diffuse severe subcutaneous soft tissue edema and deep fascial edema. Discharge Plan Discharge Clinical Impression: Open wound of plantar aspect of right foot, Hypokalemia, Hyperglycemia due to diabetes mellitus, Leukocytosis, CRP elevated, Elevated erythrocyte sedimentation rate, Acidosis, lactic, Infected puncture wound of plantar aspect of foot Patient Disposition: Still a Patient Condition: Stable Time of Disposition: 04:54
[2024-09-17 03:28] LABS: Basophils Absolute Auto 0.1 K/mm3 (0.0-0.1); Basophils Percent Auto 0.4 % (0.2-1.2); Eosinophils Absolute Auto 0.1 K/mm3 (0-0.3); Eosinophils Percent Auto 0.2 % (0-4.4); Hematocrit 42.9 % (42.0-52.0); Hemoglobin 13.7 g/dL (14.0-18.0); Immature Granulocyte Absolute 0.98 K/mm3 (0.00-0.031); Immature Granulocyte Percent A 3.3 % (0-0.5); Lymphocytes Absolute Auto 1.27 K/mm3 (0.9-3.2); Lymphocytes Percent Auto 4.3 % (18.3-44.2); Mean Corpuscular HGB Conc 31.9 g/dl (32-36); Mean Corpuscular Hemoglobin 27.3 pg (26-34); Mean Corpuscular Volume 85.6 fl (80-100); Mean Platelet Volume 10.9 fl (7.4-10.4); Monocytes Absolute Auto 2.1 K/mm3 (0.1-0.6); Monocytes Percent Auto 7.1 % (2.6-8.5); Neutrophils Percent Auto 84.7 % (45.5-73.1); Platelet Count Result 353 k/mm3 (150-375); Red Blood Count 5.01 M/mm3 (4.6-6.20); Red Cell Distribution Width 13.4 % (11.5-14.5); White Blood Count 29.5 K/mm3 (4.5-10.0)
[2024-09-17 03:30] LABS: Anion Gap 14 mmol/L (4-12); Blood Urea Nitrogen 17 mg/dL (9-20); Calcium 9.4 mg/dL (8.4-10.2); Carbon Dioxide 24 mmol/L (22-30); Chloride 105 mmol/L (98-107); Estimated CRCL calculation 97 ml/min; Estimated Glomerular Filt Rate > 60; Glucose 215 mg/dL (65-110); Potassium 3.2 mmol/L (3.4-5.0); Sodium 143 mmol/L (137-145)
[2024-09-17 03:33] LABS: NT Pro B Type Natriuretic Pept 292 pg/mL (19.9-100)
[2024-09-17] MEDS: SODIUM CHLORIDE 0.9% IV 1,000 ML 999 ML IV CONT ×2 (03:37→05:22)
--- OUTSIDE RECORDS SUMMARY | 2024-09-17 03:46 | XMS_ITS | Referral Summary ---
Author Organization [facility] Address [address] [place] [address] Care Team Providers Care Pantry Chef Name Role Phone Reji Cantu MD Primary [...] old man who was recently admitted at 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 Admitted at [facility] 09/25-10/10/2023 after presenting with LLE pain and swelling, found to have necrotizing fasciitis s/p BKA 09/25, repeat debridements and 09/27, 09/29 (with additional 5cm resection), 10/03, and 10/04 (formalization). Initial tissue and bone cultures positive for Group B Streptococcus and mixed aerobic and anaerobic micro, tissue and tibia bone cultures 10/03 positive for Burton albicans. Pathology from [facility] formalization on 10/04 showed residual acute osteomyelitis, [...] yearly or sooner as indicated by your retail product demo specialist. Recommend discontinuing glipizide and metformin at discharge. FSBG checks daily in AM, consider dexcom in outpatient setting Follow up with PCP; provide diabetes center number [phone] at discharge. Patient would like to think [...] remains stable for discharge 10/08 discharge to [facility] Hyperkalemia 09/27/2023 Assessment & Plan (10/04/2023 2:57 [...] to OSH ED and then transferred to [facility] ED 09/25 after presenting with [...] then chills and subjective fevers. Presented to [facility] and then transferred to 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 Comment: The ADA recommends reporting an estimated [...] ORDERABLES Danielle l Result [facility] [place] [address] * (ABNORMAL) Lipid panel (09/27/2023 6:00 AM [...] on 2017. Triglycerides 156(H) <=149 mg/dL [facility] Comment: Interpretive Data Ages < [...] on 2017. HDL 22(L) >=40 mg/dL [facility] Comment: Interpretive Data Ages < [...] on 2017. LDL, calculated 61 <=129 mg/dL [facility] Comment: Interpretive Data Ages < or [...] revised on 2017. Non-HDL Cholesterol 92 mg/[facility] Comment: Interpretive Data Ages < [...] last revised on 2017. Chol/HDL ratio 5 [facility] Blood 09/27/2023 6:00 AM CDT 09/27/2023 6:25 AM CDT Tyler Marie MD LAB BLOOD ORDERABLES Danielle sibley Result [facility] [place] [address] from Last 3 Months or Most Recently Relevant to Health Maintenance Insurance [facility] CHO[facility] PLUS [facility] PLUS Advance Directives For more information, please contact: [phone] * Full Code (Latest Code Status on File) Date Activated Date Inactivated Comments 09/27/2023 12:45 AM 10/09/2023 8:08 PM Care Teams Pantry Chef Relationship Specialty Start Date End Date Reji Cantu MD [id number] [facility] [place] [address] [place] [address] PCP - General Family Practice 09/27/23
--- OUTSIDE RECORDS SUMMARY | 2024-09-17 03:46 | XMS_ITS | Clinical Summary ---
Author Organization [facility] Address [address] [place] [address] Care Team Providers Care Aquatics Lifeguard Name Role Phone Reji Cantu MD Primary [...] old man who was recently admitted at [facility] 09/25- 10/09/2023 with LLE necrotizing fascitis s/p BKA complicated by residual bacterial and fungal osteomyelitis who presents to the ID clinic for follow-up. Admitted at [facility] 09/25-10/10/2023 after presenting with LLE pain and [...] yearly or sooner as indicated by your eye care professional. Recommend discontinuing glipizide and metformin at discharge. FSBG checks daily in AM, consider dexcom in outpatient setting Follow up with PCP; provide diabetes center number [phone] at discharge. Patient would like to think [...] remains stable for discharge 10/08 discharge to [facility] Hyperkalemia 09/27/2023 Assessment & Plan (10/04/2023 2:57 [...] to OSH ED and then transferred to [facility] ED 09/25 after presenting with 2 weeks [...] then chills and subjective fevers. Presented to [facility] and then transferred to [facility] 09/25 for surgical evalution of necrotizing fasciitis. 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 Gender Identity Not on file Sexual Orientation [...] ORDERABLES Final Result Performing Organization Address [facility] Co de Phone Number [facility] Department [place] [address] * (ABNORMAL) Hemoglobin A1c (09/27/2023 6:00 AM [...] Danielle l Result Performing Organization Address [facility] Co de Phone Number [facility] [place] [address] * (ABNORMAL) Lipid panel (09/27/2023 6:00 AM [...] on 2017. HDL 22(L) >=40 mg/dL [facility] Comment: Interpretive Data Ages < or = [...] 2017. LDL, calculated 61 <=129 mg/dL [facility] Comment: Interpretive Data Ages < or = [...] LAB BLOOD ORDERABLES Danielle sibley Result [facility] Department [place] [address] from Last 3 Months or Most Recently Relevant to Health Maintenance Insurance [facility] CHOICE PLUS Advance Directives For more information, please contact: [phone] * Full Code (Latest Code Status on File) Date Activated Date Inactivated Comments 09/27/2023 12:45 AM 10/09/2023 8:08 PM Care Teams Aquatics Lifeguard Relationship Specialty Start Date End Date Reji Cantu MD [address] [facility] [place] [address] [place] [address] PCP - General Family Practice 09/27/23
[2024-09-17 03:51] LABS: Lactic Acid Reflex 2.5 mmol/L (0.7-2.0)
[2024-09-17 03:55] LABS: INR 1.3; Prothrombin Time 16.4 Seconds (11.1-14.7)
[2024-09-17 03:56] LABS: Partial Thromboplastin Time 37.5 Seconds (22.3-36.8)
[2024-09-17 03:58] LABS: Magnesium 1.9 mg/dL (1.6-2.3)
[2024-09-17 03:59] LABS: D Dimer 2.85 ug/mL (<0.48)
[2024-09-17 04:05] LABS: Add Urine Microscopic? YES; Appearance Urine Clear (Clear); Bilirubin Urine Negative (Negative); Blood Urine Negative (Negative); Color Urine Yellow (Yellow); Glucose Urine UA 3+ mg/dL (Negative); Ketones Urine 2+ mg/dL (Negative); Leukocyte Esterase Ur Negative LEU/UL (Negative); Nitrate Urine Negative (Negative); Protein Urine Trace mg/dL (Negative); Specific Grav Ur 1.043 (1.001-1.035)
[2024-09-17 04:21] LABS: Bacteria Urine None Seen /hpf; Non Pathogenic Casts 0-2; RBC Urine 0-2 /hpf (0-2); Squamous Epithelial Cell Urine None Seen /hpf (Few); WBC Urine 0-5 /hpf (0-3)
[2024-09-17 04:25] LABS: Erythrocyte Sedimentation Rate 23 mm/hr (0-20)
[2024-09-17] MEDS: POTASSIUM BICARBONATE 25 MEQ TABEF 50 MEQ PO (04:41)
[2024-09-17] MEDS: PIPERACILLIN/TAZ 4.5G/NS 100ML 4.5 GM/100 ML BAG IVPB (04:42)
[2024-09-17] MEDS: CLINDAMYCIN 600 MG/D5W 50 ML 600 MG/50 ML PIGGYBACK 100 MG IVPB ×3 (05:21→22:07)
[2024-09-17] MEDS: ACETAMINOPHEN 325 MG TABLET 650 MG PO ×2 (05:31→18:26)
[2024-09-17 05:38] LABS: Reflex Lactic Acid Yes or No Add Lactic
--- NOTE | 2024-09-17 05:59 | ADMGEN ---
This patient, Delvin Hall, was admitted to [facility] Surg Room 316-02. Patient/family oriented to hospital policies and general routines including ID bracelet, bed and alarms, visiting hours, pain management, procedures, bathroom and other care routines, personal items, smoking policy, room service/diet, and visiting hours. Information on how to activate the Rapid Response Team has been discussed. Patient/Family are encouraged to report perceived risks to care and to ask questions if they do not understand what they are told or what they should do.
[2024-09-17] MEDS: VANCOMYCIN 1,250 MG/NS 250 ML 1,250 MG/250 ML BAG 166.67 MG IVPB ×2 (06:00→08:58)
[2024-09-17 08:37] LABS: Glucose Point of Care 169 mg/dl (65-105)
--- NOTE | 2024-09-17 09:32 | PM.CNGS ---
Assessment and Plan Assessment and plan (1) Type 2 diabetes mellitus with hyperglycemia: Qualifiers: Diabetes mellitus superintendent container terminal insulin use: without superintendent container terminal use Qualified Code(s): E11.65 - Type 2 diabetes mellitus with hyperglycemia Code(s): E11.65 - Type 2 diabetes mellitus with hyperglycemia Status: Acute (2) Morbid obesity with BMI of 40.0-44.9, adult: Code(s): E66.01 - Morbid (severe) obesity due to excess calories; Z68.41 - Body mass index [BMI] 40.0-44.9, adult Status: Acute (3) Open wound of plantar aspect of right foot: Code(s): S91.301A - Unspecified open wound, right foot, initial encounter Status: Acute Assessment and Plan: CT imaging demonstrates extensive soft tissue gas and fluid/edema predominantly to the dorsal aspect of the right forefoot. Findings raise suspicion for necrotizing fasciitis with associated phlegmon and developing abscess in the dorsal aspect of the forefoot. Patient had fevers overnight and significantly elevated white blood cell count. Plan for surgical incision and drainage today with Dr. Sims. Patient should remain NPO with ice chips until time of surgery. Continue IV vancomycin and clindamycin. General surgery will will continue to monitor and follow up on wound healing. Plan Patient was seen and discussed with Dr. Sims. History of Present Illness Consult details Consult date: 09/17/24 Narrative: Patient is a 49-year-old male with history of diabetes mellitus type 2 and left BKA (1 year ago - Dr. Grace) who presented to the emergency department this morning at 2:30 a.m. with concern for increased swelling to dorsal aspect of right foot. He 1st noticed the sudden increased swelling and blistering to the top of his foot last night when showering. Patient has history of callus/ulcer to the plantar aspect of right foot that has been present for roughly 1 year, but recently opened up to the skin 6 days ago. No reported purulent drainage. He reports seeing his PCP on (4 days ago), who prescribed him Keflex. Wounds are very well taking care of. Reports using Betadine/Neosporin and always keeping wounds bandaged. Upon admission to the ED, patient had fevers overnight with an increased white blood cell count of 29.5. Most recent blood glucose was 169. Foot CT is significant for Extensive soft tissue gas and fluid/edema predominantly the dorsal aspect of the forefoot, especially from the region of the fourth interspace extending proximally to the level of the proximal third metatarsal shaft. Findings raise suspicion for soft tissue gas forming infection/necrotizing fasciitis with associated phlegmon and developing irregular abscess in the dorsal aspect of the forefoot.Currently on IV vancomycin and clindamycin. 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 Occupation/Education: occupation Gender identity (if verbalized by the patient): Male Spiritual care concerns: No Agree to blood products: Yes Meds Home Medications and Allergies Home Medications ?Medication ?Instructions ?Recorded ?Confirmed ?Type fluconazole 200 mg tablet 400 mg PO DAILY 10/09/23 09/17/24 History insulin glargine 100 unit/mL 10 unit subcut QHS 10/09/23 09/17/24 History subcutaneous solution (Lantus U-100 Insulin) multivitamin with folic acid 400 1 tablet PO DAILY 10/09/23 09/17/24 History mcg tablet acetaminophen 500 mg tablet 1,000 mg (2 x 500 mg) PO Q6H PRN 10/19/23 09/17/24 Rx prn #30 tabs zinc sulfate 50 mg zinc (220 mg) 220 mg (4.4 x 50 mg zinc (220 mg)) 07/03/24 06/02/25 Rx capsule PO DAILY #30 caps amlodipine 5 mg tablet (Norvasc) 5 mg BYMOUTH DAILY #90 tabs 11/14/23 09/17/24 Rx glipizide 2.5 mg tablet, extended 2.5 mg PO DAILY #90 tabs 11/14/23 09/17/24 Rx release 24 hr empagliflozin 25 mg tablet See Rx Instructions .Route 04/16/24 09/17/24 Rx (Jardiance) .COMPLEX #90 tabs gabapentin 300 mg capsule 300 mg PO QHS #30 caps 08/14/24 09/17/24 Rx (Neurontin) lisinopril 10 mg tablet 20 mg (2 x 10 mg) PO DAILY #60 tabs 08/14/24 09/17/24 Rx tirzepatide 5 mg/0.5 mL 5 mg (0.5 mL) subcut WEEKLY #2 mL 08/14/24 09/17/24 Rx subcutaneous pen injector tadalafil 10 mg tablet (Cialis) 10 mg PO DAILY PRN sexual activity 08/16/24 09/17/24 Rx #30 tabs cephalexin 500 mg capsule 500 mg PO Q12H #20 caps 09/13/24 09/17/24 Rx Allergies Allergy/AdvReac Type Severity Reaction Status Date / Time lactose Allergy Diarrhea Verified 09/17/24 00:38 Vital Signs Vital Signs - 24 hr 09/17/24 00:39 09/17/24 03:38 09/17/24 04:47 Temperature 99.5 F 99.9 F H Pulse Rate 128 H 126 H 125 H Respiratory Rate 17 18 18 Blood Pressure 136/94 H 152/76 H 153/81 H Pulse Oximetry 100 100 100 Oxygen Delivery Room Air 09/17/24 05:27 09/17/24 05:31 09/17/24 05:41 Temperature 100.2 F H 100.2 F H 100.2 F H Pulse Rate 124 H 121 H Respiratory Rate 20 20 Blood Pressure 151/72 H 147/75 H Pulse Oximetry 100 100 Oxygen Delivery 09/17/24 06:00 Temperature 98.5 F Pulse Rate 131 H Respiratory Rate 28 H Blood Pressure 163/71 H Pulse Oximetry 100 Oxygen Delivery Exam Extrem: Other: Right foot with significant edema to dorsal aspect of left foot. Area of superficial blistering. Open ulcer to plantar aspect of right foot with scant drainage. No edema or cellulitis tracking up through ankle or pelaez. Results Labs 09/17/24 03:06 09/17/24 03:06 Labs: Abnormal lab results 09/17/24 09/17/24 09/17/24 Range/Units 03:06 03:32 07:44 WBC 29.5 H (4.5-10.0) K/mm3 Hgb 13.7 L (14.0-18.0) g/dL MCHC 31.9 L (32-36) g/dl MPV 10.9 H (7.4-10.4) fl Immature Gran % (Auto) 3.3 H (0-0.5) % Neut % (Auto) 84.7 H (45.5-73.1) % Lymph % (Auto) 4.3 L (18.3-44.2) % [place] # (Auto) 2.1 H (0.1-0.6) K/mm3 Abs Immat Gran (auto) 0.98 H (0.00-0.031) K/mm3 Absolute Neuts (auto) 25.0 H (1.3-6.7) K/mm3 ESR 23 H (0-20) mm/hr PT 16.4 H (11.1-14.7) Seconds APTT 37.5 H (22.3-36.8) Seconds D-Dimer 2.85 H (<0.48) ug/mL Potassium 3.2 L (3.4-5.0) mmol/L Anion Gap 14 H (4-12) mmol/L Glucose 215 H (65-110) mg/dL POC Capillary Glucose 169 H (65-105) mg/dl Lactic Acid 2.5 H (0.7-2.0) mmol/L C-Reactive Protein 37.0 H (<1.0) mg/dL NT-Pro-B Natriuret Pep 292 H (19.9-100) pg/mL Ur Specific [place] 1.043 H (1.001-1.035) Urine Glucose (UA) 3+ H (Negative) mg/dL Urine Ketones 2+ H (Negative) mg/dL Diabetes panel 09/17/24 Range/Units 03:06 Sodium 143 (137-145) mmol/L Potassium 3.2 L (3.4-5.0) mmol/L Chloride 105 (98-107) mmol/L Carbon Dioxide 24 (22-30) mmol/L BUN 17 (9-20) mg/dL Creatinine 1.05 (0.7-1.3) mg/dL Glucose 215 H (65-110) mg/dL Calcium 9.4 (8.4-10.2) mg/dL Calcium panel 09/17/24 Range/Units 03:06 Calcium 9.4 (8.4-10.2) mg/dL Pituitary panel 09/17/24 Range/Units 03:06 Sodium 143 (137-145) mmol/L Potassium 3.2 L (3.4-5.0) mmol/L Chloride 105 (98-107) mmol/L Carbon Dioxide 24 (22-30) mmol/L BUN 17 (9-20) mg/dL Creatinine 1.05 (0.7-1.3) mg/dL Glucose 215 H (65-110) mg/dL Calcium 9.4 (8.4-10.2) mg/dL Adrenal panel 09/17/24 Range/Units 03:06 Sodium 143 (137-145) mmol/L Potassium 3.2 L (3.4-5.0) mmol/L Chloride 105 (98-107) mmol/L Carbon Dioxide 24 (22-30) mmol/L BUN 17 (9-20) mg/dL Creatinine 1.05 (0.7-1.3) mg/dL Glucose 215 H (65-110) mg/dL Calcium 9.4 (8.4-10.2) mg/dL All other labs normal.
[2024-09-17 11:44] LABS: Glucose Point of Care 113 mg/dl (65-105)
[2024-09-17 15:17] LABS: Glucose Point of Care 113 mg/dl (65-105)
--- NOTE | 2024-09-17 15:49 | PM.IMHP ---
H&P: HPI History of Present Illness Date/Time: 09/17/24 15:49 Chief Complaint: wound on R foot Narrative: 49 year old male PMH of type 2 dm, obesity and htn. 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, often finds it hard to look after his diabetes Review of Systems Review of Systems: foot wound no other specific compliants all 12 systems reviewed and are negative apart from HPI PMFSH Past Medical History Medical History Type 2 diabetes mellitus without complications (~11/2021) Anxiety Irritable bowel syndrome with constipation Essential hypertension Surgical History Surgical History Hx of left BKA Family History Family History Mother Hypertension Diabetes mellitus Grandparent Hypertension Social History Social History Social History: 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 Occupation/Education: occupation Gender identity (if verbalized by the patient): Male Spiritual care concerns: No Agree to blood products: Yes Meds Home Medications and Allergies Home Medications ?Medication ?Instructions ?Recorded ?Confirmed ?Type fluconazole 200 mg tablet 400 mg PO DAILY 10/09/23 09/17/24 History insulin glargine 100 unit/mL 10 unit subcut QHS 10/09/23 09/17/24 History subcutaneous solution (Lantus U-100 Insulin) multivitamin with folic acid 400 1 tablet PO DAILY 10/09/23 09/17/24 History mcg tablet acetaminophen 500 mg tablet 1,000 mg (2 x 500 mg) PO Q6H PRN 10/19/23 09/17/24 Rx prn #30 tabs zinc sulfate 50 mg zinc (220 mg) 220 mg (4.4 x 50 mg zinc (220 mg)) 10/19/23 09/17/24 Rx capsule PO DAILY #30 caps amlodipine 5 mg tablet (Norvasc) 5 mg BYMOUTH DAILY #90 tabs 11/14/23 09/17/24 Rx glipizide 2.5 mg tablet, extended 2.5 mg PO DAILY #90 tabs 11/14/23 09/17/24 Rx release 24 hr empagliflozin 25 mg tablet See Rx Instructions .Route 04/16/24 09/17/24 Rx (Jardiance) .COMPLEX #90 tabs gabapentin 300 mg capsule 300 mg PO QHS #30 caps 08/14/24 09/17/24 Rx (Neurontin) lisinopril 10 mg tablet 20 mg (2 x 10 mg) PO DAILY #60 tabs 08/14/24 09/17/24 Rx tirzepatide 5 mg/0.5 mL 5 mg (0.5 mL) subcut WEEKLY #2 mL 08/14/24 09/17/24 Rx subcutaneous pen injector tadalafil 10 mg tablet (Cialis) 10 mg PO DAILY PRN sexual activity 08/16/24 09/17/24 Rx #30 tabs cephalexin 500 mg capsule 500 mg PO Q12H #20 caps 09/13/24 09/17/24 Rx Allergies Allergy/AdvReac Type Severity Reaction Status Date / Time lactose Allergy Diarrhea Verified 09/17/24 15:18 Vital Signs Vital Signs - 24 hr 09/17/24 00:39 09/17/24 03:38 09/17/24 04:47 Temperature 37.5 C 37.7 C H Pulse Rate 128 H 126 H 125 H Respiratory Rate 17 18 18 Blood Pressure 136/94 H 152/76 H 153/81 H Pulse Oximetry 100 100 100 Oxygen Delivery Room Air 09/17/24 05:27 09/17/24 05:31 09/17/24 05:41 Temperature 37.9 C H 37.9 C H 37.9 C H Pulse Rate 124 H 121 H Respiratory Rate 20 20 Blood Pressure 151/72 H 147/75 H Pulse Oximetry 100 100 Oxygen Delivery 09/17/24 06:00 09/17/24 09:00 09/17/24 12:11 Temperature 36.9 C Pulse Rate 131 H 111 H Respiratory Rate 28 H Blood Pressure 163/71 H Pulse Oximetry 100 Oxygen Delivery Room Air 09/17/24 15:10 Temperature 37.4 C Pulse Rate 118 H Respiratory Rate 18 Blood Pressure 161/80 H Pulse Oximetry 100 Oxygen Delivery Room Air Exam Const: General: cooperative, healthy appearing and overweight; No in distress Nutritional Appearance: overweight Orientation/consciousness: oriented to person HENMT: Head: normal to inspection Resp: Effort & Inspection: no respiratory distress Auscultation: no rhonchi and no wheezes Cardio: Rate: regular rate Rhythm: regular rhythm GI: Inspection: normal to inspection GI Palp: No abdominal tenderness, No Guarding due to palpation present (GI) and No Hepatomegaly present Auscultation: normal bowel sounds Neuro: General: oriented to person H&P: Results Labs Labs: Short CBC 09/17/24 Range/Units 03:06 WBC 29.5 H (4.5-10.0) K/mm3 Hgb 13.7 L (14.0-18.0) g/dL Hct 42.9 (42.0-52.0) % Plt Count 353 (150-375) k/mm3 BMP 09/17/24 03:06 Sodium 143 Potassium 3.2 L Chloride 105 Carbon Dioxide 24 BUN 17 Creatinine 1.05 Glucose 215 H Calcium 9.4 Urine 09/17/24 Range/Units 03:06 Urine Color Yellow (Yellow) Urine Appearance Clear (Clear) Urine pH 5.0 (5.0-9.0) Ur Specific [place] 1.043 H (1.001-1.035) Urine Protein Trace (Negative) mg/dL Urine Glucose (UA) 3+ H (Negative) mg/dL Assessment and Plan Assessment and plan (1) Type 2 diabetes mellitus with hyperglycemia: Qualifiers: Diabetes mellitus nursing home insulin use: without nursing home use Qualified Code(s): E11.65 - Type 2 diabetes mellitus with hyperglycemia Code(s): E11.65 - Type 2 diabetes mellitus with hyperglycemia Status: Acute Assessment and Plan: [facility] pockets and pieces and DM educator (2) Morbid obesity with BMI of 40.0-44.9, adult: Code(s): E66.01 - Morbid (severe) obesity due to excess calories; Z68.41 - Body mass index [BMI] 40.0-44.9, adult Status: Acute Assessment and Plan: weight loss adviced (3) Hypokalemia: Code(s): E87.6 - Hypokalemia Status: Acute Assessment and Plan: watch potassium levels abd replace accoirdingly (4) Open wound of plantar aspect of right foot: Code(s): S91.301A - Unspecified open wound, right foot, initial encounter Status: Acute Assessment and Plan: pt going to go for I and D today under general surgery continue npo with D51/2 NS can start diet DM after procedure and DC fluids ct shows necrotitis fascitis surgery decided on i and d (5) Infected puncture wound of plantar aspect of foot: Code(s): S91.339A - Puncture wound without foreign body, unspecified foot, initial encounter; L08.9 - Local infection of the skin and subcutaneous tissue, unspecified Status: Acute Assessment and Plan: likely due to putting extra weight on R side continue iv vancomycin and iv zosyn and cephalexin await wound cultures post procedure follow bc from yesterday (6) Essential hypertension: Code(s): I10 - Essential (primary) hypertension Status: Acute Assessment and Plan: watch Blood pressure continue lisinopril and norvasc add oral hydralazine prn high bps Plan DVT prop lovenox code full code Hospitalist MIPS Advance Care Plan I have confirmed that the patient's Advanced Care Plan is present, code status is documented, or surrogate decision maker is listed in patient medical record.: Yes The patient's Advanced Care plan is not present because:: Patient doesn't want to name surrogate or provider advance care plan Medication Reconciliation I have utilized all available resources to obtain, update and review the patients current medications (includes all prescriptions, OTC, herbals, cannabis, and nutritional supplements).: Yes The patient is not eligible for med reconciliation; the patient is in a emergent medical situation where delaying treatment would jeopardize the patients health.: No
--- NOTE | 2024-09-17 16:41 | WPDHPUPDATE1 ---
History and Physical Update Update Date/Time: 09/17/24 16:41 History and Physical has been reviewed, including an updated exam of the patient. There are NO changes in the patient's condition. Risks, benefits, and alternatives have been discussed and questions answered. Patient agrees to proceed with procedure.
--- NOTE | 2024-09-17 16:43 | WPDANESEPPF ---
Anes - Initial Pre Proc Eval Procedure: Operation Date: 09/17/24 16:00 Proposed Procedures p Incision and Drainage Right Foot - Roderick Sims MD Date/Time: 09/17/24 16:43 Surgeon: Bladimir Rosario MD Pre Op Diagnosis: diabetic foot infection Patient Data Age: 49 Gender: M Height: 1.78 m Weight: 123 kg Last Vital Signs Temp 99.3 F 09/17/24 15:10 Pulse 118 H 09/17/24 15:10 Resp 18 09/17/24 15:10 BP 161/80 H 09/17/24 15:10 Pulse Ox 100 09/17/24 15:10 O2 Del Method Room Air 09/17/24 15:10 Allergies Allergy/AdvReac Type Severity Reaction Status Date / Time lactose Allergy Diarrhea Verified 09/17/24 15:18 Home Medications ?Medication ?Instructions ?Recorded ?Confirmed ?Type fluconazole 200 mg tablet 400 mg PO DAILY 10/09/23 09/17/24 History insulin glargine 100 unit/mL 10 unit subcut QHS 10/09/23 09/17/24 History subcutaneous solution (Lantus U-100 Insulin) multivitamin with folic acid 400 1 tablet PO DAILY 10/09/23 09/17/24 History mcg tablet acetaminophen 500 mg tablet 1,000 mg (2 x 500 mg) PO Q6H PRN 10/19/23 09/17/24 Rx prn #30 tabs zinc sulfate 50 mg zinc (220 mg) 220 mg (4.4 x 50 mg zinc (220 mg)) 10/19/23 09/17/24 Rx capsule PO DAILY #30 caps amlodipine 5 mg tablet (Norvasc) 5 mg BYMOUTH DAILY #90 tabs 11/14/23 09/17/24 Rx glipizide 2.5 mg tablet, extended 2.5 mg PO DAILY #90 tabs 11/14/23 09/17/24 Rx release 24 hr empagliflozin 25 mg tablet See Rx Instructions .Route 04/16/24 09/17/24 Rx (Jardiance) .COMPLEX #90 tabs gabapentin 300 mg capsule 300 mg PO QHS #30 caps 08/14/24 09/17/24 Rx (Neurontin) lisinopril 10 mg tablet 20 mg (2 x 10 mg) PO DAILY #60 tabs 08/14/24 09/17/24 Rx tirzepatide 5 mg/0.5 mL 5 mg (0.5 mL) subcut WEEKLY #2 mL 08/14/24 09/17/24 Rx subcutaneous pen injector tadalafil 10 mg tablet (Cialis) 10 mg PO DAILY PRN sexual activity 08/16/24 09/17/24 Rx #30 tabs cephalexin 500 mg capsule 500 mg PO Q12H #20 caps 09/13/24 09/17/24 Rx Laboratory Tests 09/17/24 09/17/24 09/17/24 03:06 03:32 07:44 WBC 29.5 H K/mm3 (4.5-10.0) RBC 5.01 M/mm3 (4.6-6.20) Hgb 13.7 L g/dL (14.0-18.0) Hct 42.9 % (42.0-52.0) MCV 85.6 fl (80-100) MCH 27.3 pg (26-34) MCHC 31.9 L g/dl (32-36) RDW 13.4 % (11.5-14.5) Plt Count 353 k/mm3 (150-375) MPV 10.9 H fl (7.4-10.4) Immature Gran % (Auto) 3.3 H % (0-0.5) Neut % (Auto) 84.7 H % (45.5-73.1) Lymph % (Auto) 4.3 L % (18.3-44.2) [place] % (Auto) 7.1 % (2.6-8.5) Eos % (Auto) 0.2 % (0-4.4) Baso % (Auto) 0.4 % (0.2-1.2) Lymph # (Auto) 1.27 K/mm3 (0.9-3.2) [place] # (Auto) 2.1 H K/mm3 (0.1-0.6) Eos # (Auto) 0.1 K/mm3 (0-0.3) Baso # (Auto) 0.1 K/mm3 (0.0-0.1) Abs Immat Gran (auto) 0.98 H K/mm3 (0.00-0.031) Absolute Neuts (auto) 25.0 H K/mm3 (1.3-6.7) Absolute Nucleated RBC 0.000 K/mm3 (0.0-0.012) Nucleated RBC % 0.0 % (0.0-0.2) ESR 23 H mm/hr (0-20) PT 16.4 H Seconds (11.1-14.7) INR 1.3 APTT 37.5 H Seconds (22.3-36.8) D-Dimer 2.85 H ug/mL (<0.48) Sodium 143 mmol/L (137-145) Potassium 3.2 L mmol/L (3.4-5.0) Chloride 105 mmol/L (98-107) Carbon Dioxide 24 mmol/L (22-30) Anion Gap 14 H mmol/L (4-12) BUN 17 mg/dL (9-20) Creatinine 1.05 mg/dL (0.7-1.3) Estim Creat Clear Calc 97 ml/min Estimated GFR > 60 (59 - ) Glucose 215 H mg/dL (65-110) POC Capillary Glucose 169 H mg/dl (65-105) Lactic Acid 2.5 H mmol/L (0.7-2.0) Calcium 9.4 mg/dL (8.4-10.2) Magnesium 1.9 mg/dL (1.6-2.3) C-Reactive Protein 37.0 H mg/dL (<1.0) NT-Pro-B Natriuret Pep 292 H pg/mL (19.9-100) Urine Color Yellow (Yellow) Urine Appearance Clear (Clear) Urine pH 5.0 (5.0-9.0) Ur Specific [place] 1.043 H (1.001-1.035) Urine Protein Trace mg/dL (Negative) Urine Glucose (UA) 3+ H mg/dL (Negative) Urine Ketones 2+ H mg/dL (Negative) Ur Blood (Man) Negative (Negative) Urine Nitrate Negative (Negative) Urine Bilirubin Negative (Negative) Urine Urobilinogen 1.0 mg/dL (<2.0) Leukocyte Esterase Rfl Negative YAMILEX/UL (Negative) Urine RBC 0-2 /hpf (0-2) Urine WBC 0-5 /hpf (0-3) Ur Squamous Epith Cells None seen /hpf (Few) Urine Bacteria None seen /hpf Urine Casts 0-2 Blood Type Antibody Screen 09/17/24 09/17/2409/17/25 07:57 11:41 15:12 WBC RBC Hgb Hct MCV MCH MCHC RDW Plt Count MPV Immature Gran % (Auto) Neut % (Auto) Lymph % (Auto) [place] % (Auto) Eos % (Auto) Baso % (Auto) Lymph # (Auto) [place] # (Auto) Eos # (Auto) Baso # (Auto) Abs Immat Gran (auto) Absolute Neuts (auto) Absolute Nucleated RBC Nucleated RBC % ESR PT INR APTT D-Dimer Sodium Potassium Chloride Carbon Dioxide Anion Gap BUN Creatinine Estim Creat Clear Calc Estimated GFR Glucose POC Capillary Glucose 113 H mg/dl 113 H mg/dl (65-105) (65-105) Lactic Acid 1.0 mmol/L (0.7-2.0) Calcium Magnesium C-Reactive Protein NT-Pro-B Natriuret Pep Urine Color Urine Appearance Urine pH Ur Specific [place] Urine Protein Urine Glucose (UA) Urine Ketones Ur Blood (Man) Urine Nitrate Urine Bilirubin Urine Urobilinogen Leukocyte Esterase Rfl Urine RBC Urine WBC Ur Squamous Epith Cells Urine Bacteria Urine Casts Blood Type A Positive Antibody Screen Negative Patient hx anesthesia problems: other (One time had hard time coming out of [place] meaning his wasn't able to see him in recovery room for approx 2 hrs. ) Family hx anesthesia problems: none Results Review: All pre-operative results and documents have been reviewed as part of the pre-operative evaluation. 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 HTN, DM w poor control (fsbs 113), denies VASILIY or symptoms, on GLP1 but off for 8 days, no N/V or early satiety. Informed Consent: The patient's anesthetic plan and its attendant risks and benefits were discussed with the patient/family/POA. Questions were solicited and answers provided to the satisfaction of the patient/family/POA.
[2024-09-17] MEDS: LIDO 1%/EPINEPHRINE 1:100,000 50 ML VIAL 20 ML INFILTRATE (17:17)
[2024-09-17] MEDS: BUPivacaine HCL 0.5% 10 ML AMP 20 ML INFILTRATE (17:18)
[2024-09-17] MEDS: LACTATED RINGERS 1,000 ML 30 ML IV CONT (18:00)
[2024-09-17 18:15] LABS: Glucose Point of Care 108 mg/dl (65-105)
[2024-09-17] MEDS: VANCOMYCIN 1,500 MG/NS 500 ML 1,500 MG/500 ML BAG 250 MG IVPB (18:15)
[2024-09-17] MEDS: CEPHALEXIN 500 MG CAPSULE PO (20:40)
[2024-09-17] MEDS: GABAPENTIN 300 MG CAPSULE PO (20:40)
[2024-09-17] MEDS: oxyCODONE HCL (*CRX) 5 MG TAB IR PO (20:40)
[2024-09-17] MEDS: INSULIN GLARGINE (*BKC) 100 UNITS/ML 10 UNITS SUB-Q (20:47)
[2024-09-17 21:56] LABS: Glucose Point of Care 103 mg/dl (65-105)
--- NOTE | 2024-09-17 22:53 | PC.NURSE ---
patient returned from OR at 19:05 with vanco infusing
[2024-09-18 00:57] VITALS: BP 144/62; PULSE 114; RESP 18; TEMP 36.9; O2SAT 100
[2024-09-18] MEDS: oxyCODONE HCL (*CRX) 5 MG TAB IR PO ×3 (01:58→23:04)
[2024-09-18 05:00] VITALS: BP 141/68; PULSE 104; RESP 18; TEMP 36.2; O2SAT 98
[2024-09-18] MEDS: CLINDAMYCIN 600 MG/D5W 50 ML 600 MG/50 ML PIGGYBACK 100 MG IVPB ×3 (05:06→21:18)
[2024-09-18] MEDS: VANCOMYCIN 1,500 MG/NS 500 ML 1,500 MG/500 ML BAG 250 MG IVPB ×2 (05:51→18:14)
[2024-09-18 07:03] LABS: Basophils Absolute Auto 0.1 K/mm3 (0.0-0.1); Basophils Percent Auto 0.6 % (0.2-1.2); Eosinophils Absolute Auto 0.2 K/mm3 (0-0.3); Eosinophils Percent Auto 1.2 % (0-4.4); Hematocrit 34.6 % (42.0-52.0); Hemoglobin 11.1 g/dL (14.0-18.0); Immature Granulocyte Absolute 0.46 K/mm3 (0.00-0.031); Immature Granulocyte Percent A 2.3 % (0-0.5); Lymphocytes Absolute Auto 1.95 K/mm3 (0.9-3.2); Mean Corpuscular HGB Conc 32.1 g/dl (32-36); Mean Corpuscular Hemoglobin 27.7 pg (26-34); Mean Corpuscular Volume 86.3 fl (80-100); Mean Platelet Volume 10.2 fl (7.4-10.4); Monocytes Absolute Auto 1.7 K/mm3 (0.1-0.6); Monocytes Percent Auto 8.8 % (2.6-8.5); Neutrophils Absolute Auto 15.1 K/mm3 (1.3-6.7); Neutrophils Percent Auto 77.1 % (45.5-73.1); Platelet Count Result 351 k/mm3 (150-375); Red Blood Count 4.01 M/mm3 (4.6-6.20); Red Cell Distribution Width 13.9 % (11.5-14.5); White Blood Count 19.6 K/mm3 (4.5-10.0)
[2024-09-18 07:11] LABS: Alanine Aminotransferase 45 U/L (6-50); Albumin Level 3.1 g/dL (3.5-5.1); Alkaline Phosphatase 138 U/L (38-126); Anion Gap 11 mmol/L (4-12); Aspartate Amino Transferase 31 U/L (17-59); Bilirubin,Total 0.9 mg/dL (0.2-1.3); Blood Urea Nitrogen 12 mg/dL (9-20); Calcium 8.1 mg/dL (8.4-10.2); Carbon Dioxide 20 mmol/L (22-30); Chloride 108 mmol/L (98-107); Estimated CRCL calculation 113 ml/min; Estimated Glomerular Filt Rate > 60; Glucose 123 mg/dL (65-110); Potassium 3.4 mmol/L (3.4-5.0); Sodium 139 mmol/L (137-145)
[2024-09-18 09:05] LABS: Glucose Point of Care 106 mg/dl (65-105)
[2024-09-18] MEDS: CEPHALEXIN 500 MG CAPSULE PO (10:56)
[2024-09-18] MEDS: FLUCONAZOLE 100 MG TABLET 400 MG PO (10:56)
[2024-09-18] MEDS: MULTIVITAMINS THERAPEUTIC TAB (*BKC) 1 TABLET PO (10:56)
[2024-09-18] MEDS: POTASSIUM CHLORIDE 20 MEQ PACKET (FOR LIQUID) 40 MEQ PO ×2 (10:57→16:49)
[2024-09-18] MEDS: lisinopriL 20 MG TABLET PO (10:57)
[2024-09-18] MEDS: EMPAGLIFLOZIN 25 MG TABLET PO (10:57)
[2024-09-18] MEDS: amLODIPine BESYLATE 5 MG TABLET BY MOUTH (10:57)
[2024-09-18] MEDS: ENOXAPARIN 40 MG/0.4 ML SYRINGE SUB-Q (10:57)
[2024-09-18] MEDS: ZINC SULFATE 220 MG CAPSULE PO (10:57)
[2024-09-18] MEDS: glipiZIDE XL 2.5 MG TAB.ER.24 PO (10:57)
[2024-09-18 12:15] LABS: Glucose Point of Care 249 mg/dl (65-105)
[2024-09-18] MEDS: INSULIN ASPART (*BKC) 100 UNITS/ML 6 UNITS SUB-Q (13:39)
[2024-09-18] MEDS: AMPICILLIN SULB 3 GM/NS 100 ML 3 GM/100 ML VIAL IVPB ×2 (13:41→20:30)
[2024-09-18 14:00] VITALS: BP 146/77; PULSE 99; RESP 20; TEMP 36.4; O2SAT 99
--- NOTE | 2024-09-18 14:27 | W.PM.PROC2 ---
Procedure Note - Detailed Date of Procedure 09/17/24 Pre-op Diagnosis Right foot 10 diabetic ulcer with abscess and necrotizing soft tissue infection of the dorsal forefoot Post-op Diagnosis Same Procedure Performed Complex incision and drainage of abscess and sharp scissor and scalpel excisional debridement of skin and subcutaneous tissue of the right forefoot. Surgeon Roderick Sims MD Liability Claims Representative Chio [facility] Anesthesia General Indications Patient is a 49-year-old gentleman who was admitted through the emergency room to the surgical floor. He is a diabetic and who about a year ago underwent a left below-knee amputation for a severe nonhealing wound on the left lower extremity. He was admitted to the hospital [place] [id number] [place] scan of the right foot showed air in the soft tissues of the right forefoot. Patient has had a longstanding plantar ulcer which has now resulted in this right forefoot abscess. Presents now for incision and drainage of the abscess with debridement of all nonviable tissue. Findings The patient had abscess on the dorsal aspects of the right forefoot. The a abscess originated from the plantar surface ulcer on the lateral forefoot which bur old between the metatarsal bones of the 4th and 5th toes. Extended to the dorsum of the right forefoot where an abscess was noted and necrosis of the overlying skin was noted. On the forefoot the infection extended to the midportion of the dorsal aspect of the foot. After drainage of the abscess and cutting away the nonviable skin the extensor tendons the 2nd, 3rd, 4th, and 5th toes or at the base of the resulting wound. There were left intact and appeared to be viable. No bone was exposed. Description of Procedure After informed consent was obtained patient brought to the operating room placed supine position and general LMA anesthesia was administered. The right lower extremity from the mid tibia region distally to the toes was then prepped and draped in a circumferential fashion. Time-out was then performed correctly identifying the patient as well as procedure to be performed. He was already on scheduled broad-spectrum IV antibiotics and site marking was verified. I then started by incising with a scalpel over the most fluctuant part of the abscess on the dorsal aspect of the right forefoot. There was prompt drainage of dishwater discolored and typical smelling fluid from the abscess cavity consistent with a necrotizing soft tissue infection. Some pus was also noted and a culture swab of the abscess cavity was obtained was sent to microbiology for Gram stain and culture. I then further opened up the wound by cutting away all the nonviable skin and subcutaneous tissue in the area. I found the tract extending to the plantar surface of the right forefoot and the tract extended between the 2 metatarsal bones of the 4th and 5th toes. I then cut away the callus around the wound on the plantar surface of the right forefoot. This exposed the tunnel that led to the abscess on the dorsum of the right forefoot. I extensively debrided sharply with scalpel and scissors to cut away all the necrotic tissue in the wound. Tendon and muscle was exposed but there was no debridement of any tendon, muscle, or bone. The only tissue which was excisionally debrided was skin and soft tissue. The abscess extended and the subcutaneous plane more proximally on to the midportion of the dorsum of the right foot. I opened this up but all of the skin and subcutaneous tissues was viable. I then irrigated out the wound with 2L of sterile saline solution. No further pus pocket was noted. The wound measured approximately [id number]. There is a 4cm tunneling of the cavity to the dorsum of the right midfoot. On the plantar surface there was a paucity 3cm tunnel. The wound was then packed with half-inch iodoform gauze and then covered with fluff 4x4 gauze ABD pad and then wrapped with Kerlix gauze and a 4in Hang wrap. The patient tolerated the procedure well no complications. All sponges, needles, and instrument counts were correct at the end procedure. EBL was __50_cc. The patient was awakened and taken to recovery in stable and satisfactory condition. Implants None Estimated Blood Loss 50 Urine Output 450 Drains No Packing Yes (Quarter-inch iodoform gauze) Pathology Other (Abscess cavity swab sent to microbiology for Gram stain, aerobic, and anaerobic cultures) Complications No immediate complications Condition Stable Disposition PACU [facility] Billing Surgery - Charge Forward: Surgery Billing
--- NOTE | 2024-09-18 15:50 | P.PNGS_ITS ---
Progress Note: A&P Assessment and Plan (1) Open wound of plantar aspect of right foot: Code(s): S91.301A - Unspecified open wound, right foot, initial encounter Status: Acute Assessment and Plan: * Patient presented with a necrotizing soft tissue infection of the right foot s/p I&D and debridement yesterday. Wound vac placed by wound care nurses today. Will plan to change wound vac dressing again tomorrow. Continue broad- spectrum IV antibiotics, currently on Unasyn/Clindamycin/Vancomycin. Wound cx growing prevotella bivia and staph aureus, continue to follow. (2) Type 2 diabetes mellitus with hyperglycemia: Qualifiers: Diabetes mellitus penitentiary insulin use: without superintendent marine oil terminal use Quali fied Code(s): E11.65 - Type 2 diabetes mellitus with hyperglycemia Code(s): E11.65 - Type 2 diabetes mellitus with hyperglycemia Status: Acute (3) Morbid obesity with BMI of 40.0-44.9, adult: Code(s): E66.01 - Morbid (severe) obesity due to excess calories; Z68.41 - Body mass index [BMI] 40.0-44.9, adult Status: Acute Plan I have discussed the patient's case and plan of care with Dr. Sims Subjective Subjective Date/Time Seen: 09/18/24 15:50 Post Op day: 1 Patient reports: still having pain (right foot, being controlled with pain medication) and afebrile Exam Narrative: Right foot with wound vac dressing dry and intact, functioning well Objective Data Vital Signs Vital Signs: Vital Signs - 24 hr 09/17/24 18:00 09/17/24 18:15 09/17/24 18:30 Temperature 101.4 F H Pulse Rate 116 H 116 H 116 H Respiratory Rate 24 H 24 H 18 Blood Pressure 109/56 L 150/70 H 149/77 H Pulse Oximetry 100 100 100 Oxygen Delivery Simple Face Mask Simple Face Mask Room Air Oxygen Flow Rate 10 10 09/17/24 18:45 09/17/24 19:05 09/17/24 19:20 Temperature 98.3 F 98.3 F Pulse Rate 114 H 116 H 118 H Respiratory Rate 20 16 17 Blood Pressure 155/69 H 142/65 H 152/70 H Pulse Oximetry 97 100 100 Oxygen Delivery Room Air Oxygen Flow Rate 09/17/24 19:50 09/17/24 20:00 09/17/24 20:50 Temperature 98.3 F 98.3 F Pulse Rate 118 H 119 H Respiratory Rate 17 18 Blood Pressure 146/65 H 155/75 H Pulse Oximetry 100 100 Oxygen Delivery Room Air Oxygen Flow Rate 09/17/24 22:29 09/17/24 23:32 09/18/24 00:57 Temperature 98.3 F 98.4 F Pulse Rate 118 H 114 H Respiratory Rate 18 18 Blood Pressure 142/65 H 144/62 H Pulse Oximetry 99 97 100 Oxygen Delivery Room Air Oxygen Flow Rate 09/18/24 05:00 09/18/24 14:00 Temperature 97.2 F L 97.5 F L Pulse Rate 104 H 99 Respiratory Rate 18 20 Blood Pressure 141/68 H 146/77 H Pulse Oximetry 98 99 Oxygen Delivery Oxygen Flow Rate Intake/Output Intake/Output: Intake & Output 09/15/24 09/16/24 09/17/24 09/18/24 23:59 23:59 23:59 23:59 Intake Total 2500 1640 Output Total 950 1400 Balance 1550 240 Meds/Results Medications: Active Medications Generic Name Dose Route Start Last Admin Trade Name Freq PRN Reason Stop Dose Admin Acetaminophen 1,000 mg 09/17/24 19:00 Acetaminophen 500 Mg Tablet PO Q6H PRN Mild Pain (1-3) or Fever Hydrocodone Bitart/Acetaminophen 1 tab 09/17/24 19:00 Hydrocodone/Acetaminophen (*Crx) 5-325 Mg Tablet PO Q4H PRN Pain Rated 4-6 Amlodipine Besylate 5 mg 09/18/24 09:00 09/18/24 10:57 Amlodipine Besylate 5 Mg Tablet BY MOUTH 5 mg DAILY YUKO Administration Dextrose 12.5 gm 09/17/24 04:53 Dextrose 50% 25 Gm/50 Ml Syringe IV PUSH PRN PRN Hypoglycemia Protocol Empagliflozin 25 mg 09/18/24 09:00 09/18/24 10:57 Empagliflozin 25 Mg Tablet PO 25 mg DAILY YUKO Administration Enoxaparin Sodium 40 mg 09/18/24 09:00 09/18/24 10:57 Enoxaparin 40 Mg/0.4 Ml Syringe SUB-Q 40 mg DAILY YUKO Administration Fluconazole 400 mg 09/18/24 09:00 09/18/24 10:56 Fluconazole 100 Mg Tablet PO 400 mg DAILY YUKO Administration Gabapentin 300 mg 09/17/24 21:00 09/17/24 20:40 Gabapentin 300 Mg Capsule PO 300 mg QHS YUKO Administration Glipizide 2.5 mg 09/18/24 09:00 09/18/24 10:57 Glipizide Xl 2.5 Mg Tab.Er.24 PO 2.5 mg DAILY YUKO Administration Glucagon 1 mg 09/17/24 04:53 Glucagon For Inj 1 Mg Vial IM PRN PRN Hypoglycemia Protocol Glucose 15 gm 09/17/24 04:53 Glucose Oral Gel 15 Gm Of Glucse In 37.5 Gm Tube PO PRN PRN Hypoglycemia Protocol Hydralazine HCl 10 mg 09/17/24 22:25 Hydralazine 10 Mg Tablet PO QID PRN Hypertensive Emergency Vancomycin HCl 1,500 mg in 500 mls @ 250 mls/hr 09/17/24 18:00 09/18/24 07:51 Vancomycin 1,500 Mg/Ns 500 Ml IVPB Infused Q12H YUKO Infusion Clindamycin Phosphate 600 mg in 50 mls @ 100 mls/hr 09/17/24 14:00 09/18/24 13:40 Clindamycin 600 Mg/D5w 50 Ml IVPB 100 mls/hr Q8HR YUKO Administration Ampicillin Sodium/Sulbactam Sodium 3 gm in 100 mls @ 200 mls/hr 09/18/24 12:00 09/18/24 13:41 Unasyn 3 Gm/Ns 100 Ml IVPB 200 mls/hr Q6H YUKO Administration Insulin Aspart 6 units 09/17/24 17:00 09/18/24 13:39 Insulin Aspart (*Bkc) 100 Units/Ml 0.05 units/kg (6 units) 6 units SUB-Q Administration [facility] Insulin Glargine 10 units 09/17/24 21:00 09/17/24 20:47 Insulin Glargine (*Bkc) 100 Units/Ml SUB-Q 10 units QHS [facility] Administration Lisinopril 20 mg 09/18/24 09:00 09/18/24 10:57 Lisinopril 20 Mg Tablet PO 20 mg DAILY YUKO Administration Miscellaneous Information 0 each 09/17/24 00:01 09/17/24 22:54 Tirzepatide Nonform Hold While Here? XX 10/17/24 00:00 Not Given [facility] Morphine Sulfate 4 mg 09/17/24 19:00 Morphine Sulfate (*Crx) 4 Mg/Ml Inj IV PUSH Q4H PRN Pain Rated 7-10 IF NPO Multivitamins Therapeutic 1 tablet 09/18/24 09:00 09/18/24 10:56 Multivitamins Therapeutic Tab (*Bkc) PO 1 tablet DAILY YUKO Administration Non-Formulary Medication 5 mg 09/24/24 09:00 Tirzepatide SUB-Q 10/24/24 08:59 [facility]EEKLY [facility] Ondansetron HCl 4 mg 09/17/24 04:53 Ondansetron Inj 4 Mg/2 Ml Vial IV PUSH Q4H PRN Nausea Oxycodone HCl 5 mg 09/17/24 19:00 09/18/24 11:21 Oxycodone Hcl (*Crx) 5 Mg Tab Ir PO 5 mg Q4H PRN Administration Pain Rated 7-10 Potassium Chloride 40 meq 09/17/24 17:00 09/18/24 10:57 Potassium Chloride 20 Meq Packet (For Liquid) PO 40 meq BID YUKO Administration Zinc Sulfate 220 mg 09/18/24 09:00 09/18/24 10:57 Zinc Sulfate 220 Mg Capsule PO 220 mg DAILY YUKO Administration Radiology Results: ITS Impressions Foot CT 09/17/24 06:42 IMPRESSION: Extensive soft tissue gas and fluid/edema predominantly the dorsal aspect of the forefoot, especially from the region of the fourth interspace extending proximally to the level of the proximal third metatarsal shaft. Findings raise suspicion for soft tissue gas forming infection/necrotizing fasciitis with associated phlegmon and developing irregular abscess in the dorsal aspect of the forefoot. Additional possible wound or ulcer at the fifth MTP joint region at the plantar aspect of the foot. No CT evidence for osteomyelitis. Venous Doppler Study 09/17/24 13:20 IMPRESSION: 1: No lower extremity deep venous thrombosis. Labs Labs: Laboratory Results - last 24 hr 09/17/24 09/17/24 09/18/24 18:12 19:43 06:41 WBC 19.6 H RBC 4.01 L Hgb 11.1 L Hct 34.6 L MCV 86.3 MCH 27.7 MCHC 32.1 RDW 13.9 Plt Count 351 MPV 10.2 Immature Gran % (Auto) 2.3 H Neut % (Auto) 77.1 H Lymph % (Auto) 10.0 L Garvin % (Auto) 8.8 H Eos % (Auto) 1.2 Baso % (Auto) 0.6 Lymph # (Auto) 1.95 Garvin # (Auto) 1.7 H Eos # (Auto) 0.2 Baso # (Auto) 0.1 Abs Immat Gran (auto) 0.46 H Absolute Neuts (auto) 15.1 H Absolute Nucleated RBC 0.000 Nucleated RBC % 0.0 Sodium 139 Potassium 3.4 Chloride 108 H Carbon Dioxide 20 L Anion Gap 11 BUN 12 D Creatinine 0.89 Estim Creat Clear Calc 113 Estimated GFR > 60 Glucose 123 H POC Capillary Glucose 108 H 103 Calcium 8.1 L Total Bilirubin 0.9 AST 31 ALT 45 Alkaline Phosphatase 138 H Total Protein 6.0 L Albumin 3.1 L 09/18/24 09/18/24 08:14 12:12 WBC RBC Hgb Hct MCV MCH MCHC RDW Plt Count MPV Immature Gran % (Auto) Neut % (Auto) Lymph % (Auto) Garvin % (Auto) Eos % (Auto) Baso % (Auto) Lymph # (Auto) Garvin # (Auto) Eos # (Auto) Baso # (Auto) Abs Immat Gran (auto) Absolute Neuts (auto) Absolute Nucleated RBC Nucleated RBC % Sodium Potassium Chloride Carbon Dioxide Anion Gap BUN Creatinine Estim Creat Clear Calc Estimated GFR Glucose POC Capillary Glucose 106 H 249 H Calcium Total Bilirubin AST ALT Alkaline Phosphatase Total Protein Albumin
[2024-09-18] MEDS: HYDROcodone/acetaminophen (*CRX) 5-325 MG TABLET 1 TAB PO ×2 (16:48→20:27)
--- NOTE | 2024-09-18 16:50 | P.PNIM_ITS ---
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 (2) Morbid obesity with BMI of 40.0-44.9, adult: Code(s): E66.01 - Morbid (severe) obesity due to excess calories; Z68.41 - Body mass index [BMI] 40.0-44.9, adult Status: Acute Assessment and Plan: weight loss adviced (3) Hypokalemia: Code(s): E87.6 - Hypokalemia Status: Acute Assessment and Plan: watch potassium levels abd replace accoirdingly (4) Open wound of plantar aspect of right foot: Code(s): S91.301A - Unspecified open wound, right foot, initial encounter Status: Acute Assessment and Plan: pt going to go for I and D today under general surgery continue npo with D51/2 NS can start diet DM after procedure and DC fluids ct shows necrotitis fascitis surgery decided on i and d (5) Infected puncture wound of plantar aspect of foot: Code(s): S91.339A - Puncture wound without foreign body, unspecified foot, initial encounter; L08.9 - Local infection of the skin and subcutaneous tissue, unspecified Status: Acute Assessment and Plan: likely due to putting extra weight on R side continue iv vancomycin and iv zosyn and cephalexin await wound cultures post procedure follow bc from yesterday (6) Essential hypertension: Code(s): I10 - Essential (primary) hypertension Status: Acute Assessment and Plan: watch Blood pressure continue lisinopril and norvasc add oral hydralazine prn high bps Plan patient presented with open wound of planter aspect of right foot wound, most likely due to diabetes, was found to have necrotizing soft tissue, and had I&D, with debridement on 09/17, CT scan of the foot did not show any OM, patient whit counts are improving 19.6 compared to 29.5 upon arrival, patient wound is growing Staph aureus and Prevotella bivia and being treated with Ampicillin, Clindamycin and vancomycin with follow of blood and wound culture and further recommendation to follow. DVT prop lovenox code full code Subjective Date/time seen: 09/18/24 16:50 Interval history: Chief Complaint: wound on R foot H&P-Narrative: 49 year old male PMH of type 2 dm, obesity and htn. 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 Review of Systems Review of Systems: foot wound no other specific compliants all 12 systems reviewed and are negative apart from HPI Exam Narrative: Patient is comfortable, NAD HEENT: eyes are clear and none icteric LUNGS:CTA HEART: RR S1S2 ABD: BS+, Soft and nontender Lower extremities: left BKA, right leg with dressing. SKIN: nonjaundiced Neuro: grossly intact. Objective Data Vital Signs Vital Signs: Vital Signs - 24 hr 09/17/24 18:00 09/17/24 18:15 09/17/24 18:30 Temperature 38.6 C H Pulse Rate 116 H 116 H 116 H Respiratory Rate 24 H 24 H 18 Blood Pressure 109/56 L 150/70 H 149/77 H Pulse Oximetry 100 100 100 Oxygen Delivery Simple Face Mask Simple Face Mask Room Air Oxygen Flow Rate 10 10 09/17/24 18:45 09/17/24 19:05 09/17/24 19:20 Temperature 36.8 C 36.8 C Pulse Rate 114 H 116 H 118 H Respiratory Rate 20 16 17 Blood Pressure 155/69 H 142/65 H 152/70 H Pulse Oximetry 97 100 100 Oxygen Delivery Room Air Oxygen Flow Rate 09/17/24 19:50 09/17/24 20:00 09/17/24 20:50 Temperature 36.8 C 36.8 C Pulse Rate 118 H 119 H Respiratory Rate 17 18 Blood Pressure 146/65 H 155/75 H Pulse Oximetry 100 100 Oxygen Delivery Room Air Oxygen Flow Rate 09/17/24 22:29 09/17/24 23:32 09/18/24 00:57 Temperature 36.8 C 36.9 C Pulse Rate 118 H 114 H Respiratory Rate 18 18 Blood Pressure 142/65 H 144/62 H Pulse Oximetry 99 97 100 Oxygen Delivery Room Air Oxygen Flow Rate 09/18/24 05:00 09/18/24 14:00 Temperature 36.2 C L 36.4 C L Pulse Rate 104 H 99 Respiratory Rate 18 20 Blood Pressure 141/68 H 146/77 H Pulse Oximetry 98 99 Oxygen Delivery Oxygen Flow Rate Intake/Output Intake/Output: Intake & Output 09/15/24 09/16/24 09/17/24 09/18/24 23:59 23:59 23:59 23:59 Intake Total 2500 1790 Output Total 950 1400 Balance 1550 390 Meds/Results Medications: Active Medications Generic Name Dose Route Start Last Admin Trade Name Freq PRN Reason Stop Dose Admin Acetaminophen 1,000 mg 09/17/24 19:00 Acetaminophen 500 Mg Tablet PO Q6H PRN Mild Pain (1-3) or Fever Hydrocodone Bitart/Acetaminophen 1 tab 09/17/24 19:00 09/18/24 16:48 Hydrocodone/Acetaminophen (*Crx) 5-325 Mg Tablet PO 1 tab Q4H PRN Administration Pain Rated 4-6 Amlodipine Besylate 5 mg 09/18/24 09:00 09/18/24 10:57 Amlodipine Besylate 5 Mg Tablet BY MOUTH 5 mg DAILY YUKO Administration Dextrose 12.5 gm 09/17/24 04:53 Dextrose 50% 25 Gm/50 Ml Syringe IV PUSH PRN PRN Hypoglycemia Protocol Empagliflozin 25 mg 09/18/24 09:00 09/18/24 10:57 Empagliflozin 25 Mg Tablet PO 25 mg DAILY YUKO Administration Enoxaparin Sodium 40 mg 09/18/24 09:00 09/18/24 10:57 Enoxaparin 40 Mg/0.4 Ml Syringe SUB-Q 40 mg DAILY YUKO Administration Fluconazole 400 mg 09/18/24 09:00 09/18/24 10:56 Fluconazole 100 Mg Tablet PO 400 mg DAILY YUKO Administration Gabapentin 300 mg 09/17/24 21:00 09/17/24 20:40 Gabapentin 300 Mg Capsule PO 300 mg QHS YUKO Administration Glipizide 2.5 mg 09/18/24 09:00 09/18/24 10:57 Glipizide Xl 2.5 Mg Tab.Er.24 PO 2.5 mg DAILY YUKO Administration Glucagon 1 mg 09/17/24 04:53 Glucagon For Inj 1 Mg Vial IM PRN PRN Hypoglycemia Protocol Glucose 15 gm 09/17/24 04:53 Glucose Oral Gel 15 Gm Of Glucse In 37.5 Gm Tube PO PRN PRN Hypoglycemia Protocol Hydralazine HCl 10 mg 09/17/24 22:25 Hydralazine 10 Mg Tablet PO QID PRN Hypertensive Emergency Vancomycin HCl 1,500 mg in 500 mls @ 250 mls/hr 09/17/24 18:00 09/18/24 07:51 Vancomycin 1,500 Mg/Ns 500 Ml IVPB Infused Q12H YUKO Infusion Clindamycin Phosphate 600 mg in 50 mls @ 100 mls/hr 09/17/24 14:00 09/18/24 14:10 Clindamycin 600 Mg/D5w 50 Ml IVPB Infused Q8HR YUKO Infusion Ampicillin Sodium/Sulbactam Sodium 3 gm in 100 mls @ 200 mls/hr 09/18/24 12:00 09/18/24 15:00 Unasyn 3 Gm/Ns 100 Ml IVPB Infused Q6H [facility] Infusion Insulin Aspart 6 units 09/17/24 17:00 09/18/24 13:39 Insulin Aspart (*Bkc) 100 Units/Ml 0.05 units/kg (6 units) 6 units SUB-Q Administration TIDWM [facility] Insulin Glargine 10 units 09/17/24 21:00 09/17/24 20:47 Insulin Glargine (*Bkc) 100 Units/Ml SUB-Q 10 units QHS [facility] [place] Administration Lisinopril 20 mg 09/18/24 09:00 09/18/24 10:57 Lisinopril 20 Mg Tablet PO 20 mg DAILY YUKO Administration Miscellaneous Information 0 each 09/17/24 00:01 09/17/24 22:54 Tirzepatide Nonform Hold While Here? XX 10/17/24 00:00 Not Given [facility]ARIFY [facility] Morphine Sulfate 4 mg 09/17/24 19:00 Morphine Sulfate (*Crx) 4 Mg/Ml Inj IV PUSH Q4H PRN Pain Rated 7-10 IF NPO Multivitamins Therapeutic 1 tablet 09/18/24 09:00 09/18/24 10:56 Multivitamins Therapeutic Tab (*Bkc) PO 1 tablet DAILY YUKO Administration Non-Formulary Medication 5 mg 09/24/24 09:00 Tirzepatide SUB-Q 10/24/24 08:59 WEEKLY [facility] Ondansetron HCl 4 mg 09/17/24 04:53 Ondansetron Inj 4 Mg/2 Ml Vial IV PUSH Q4H PRN Nausea Oxycodone HCl 5 mg 09/17/24 19:00 09/18/24 11:21 Oxycodone Hcl (*Crx) 5 Mg Tab Ir PO 5 mg Q4H PRN Administration Pain Rated 7-10 Potassium Chloride 40 meq 09/17/24 17:00 09/18/24 16:49 Potassium Chloride 20 Meq Packet (For Liquid) PO 40 meq BID YUKO Administration Zinc Sulfate 220 mg 09/18/24 09:00 09/18/24 10:57 Zinc Sulfate 220 Mg Capsule PO 220 mg DAILY YUKO Administration Radiology Results: ITS Impressions Foot CT 09/17/24 06:42 IMPRESSION: Extensive soft tissue gas and fluid/edema predominantly the dorsal aspect of the forefoot, especially from the region of the fourth interspace extending proximally to the level of the proximal third metatarsal shaft. Findings raise suspicion for soft tissue gas forming infection/necrotizing fasciitis with associated phlegmon and developing irregular abscess in the dorsal aspect of the forefoot. Additional possible wound or ulcer at the fifth MTP joint region at the plantar aspect of the foot. No CT evidence for osteomyelitis. Venous Doppler Study 09/17/24 13:20 IMPRESSION: 1: No lower extremity deep venous thrombosis. Labs Labs: Laboratory Results - last 24 hr 09/17/24 09/17/24 09/18/24 18:12 19:43 06:41 WBC 19.6 H RBC 4.01 L Hgb 11.1 L Hct 34.6 L MCV 86.3 MCH 27.7 MCHC 32.1 RDW 13.9 Plt Count 351 MPV 10.2 Immature Gran % (Auto) 2.3 H Neut % (Auto) 77.1 H Lymph % (Auto) 10.0 L Lyon % (Auto) 8.8 H Eos % (Auto) 1.2 Baso % (Auto) 0.6 Lymph # (Auto) 1.95 Lyon # (Auto) 1.7 H Eos # (Auto) 0.2 Baso # (Auto) 0.1 Abs Immat Gran (auto) 0.46 H Absolute Neuts (auto) 15.1 H Absolute Nucleated RBC 0.000 Nucleated RBC % 0.0 Sodium 139 Potassium 3.4 Chloride 108 H Carbon Dioxide 20 L Anion Gap 11 BUN 12 D Creatinine 0.89 Estim Creat Clear Calc 113 Estimated GFR > 60 Glucose 123 H POC Capillary Glucose 108 H 103 Calcium 8.1 L Total Bilirubin 0.9 AST 31 ALT 45 Alkaline Phosphatase 138 H Total Protein 6.0 L Albumin 3.1 L 09/18/24 09/18/24 08:14 12:12 WBC RBC Hgb Hct MCV MCH MCHC RDW Plt Count MPV Immature Gran % (Auto) Neut % (Auto) Lymph % (Auto) Lyon % (Auto) Eos % (Auto) Baso % (Auto) Lymph # (Auto) Lyon # (Auto) Eos # (Auto) Baso # (Auto) Abs Immat Gran (auto) Absolute Neuts (auto) Absolute Nucleated RBC Nucleated RBC % Sodium Potassium Chloride Carbon Dioxide Anion Gap BUN Creatinine Estim Creat Clear Calc Estimated GFR Glucose POC Capillary Glucose 106 H 249 H Calcium Total Bilirubin AST ALT Alkaline Phosphatase Total Protein Albumin
[2024-09-18 17:05] LABS: Glucose Point of Care 101 mg/dl (65-105)
[2024-09-18 17:33] LABS: Vancomycin Trough 9.6 ug/mL (10.0-20.0)
[2024-09-18] MEDS: GABAPENTIN 300 MG CAPSULE PO (20:30)
[2024-09-18 21:04] LABS: Glucose Point of Care 111 mg/dl (65-105)
[2024-09-18 21:05] VITALS: BP 141/78; PULSE 98; RESP 18; TEMP 36.4; O2SAT 99
[2024-09-18] MEDS: INSULIN GLARGINE (*BKC) 100 UNITS/ML 10 UNITS SUB-Q (21:21)
[2024-09-19] MEDS: VANCOMYCIN 1,500 MG/NS 500 ML 1,500 MG/500 ML BAG 250 MG IVPB (01:48)
[2024-09-19] MEDS: AMPICILLIN SULB 3 GM/NS 100 ML 3 GM/100 ML VIAL IVPB ×3 (04:22→14:10)
[2024-09-19] MEDS: CLINDAMYCIN 600 MG/D5W 50 ML 600 MG/50 ML PIGGYBACK 100 MG IVPB ×2 (05:16→13:40)
[2024-09-19] MEDS: oxyCODONE HCL (*CRX) 5 MG TAB IR PO ×3 (05:22→20:31)
[2024-09-19 06:00] VITALS: BP 154/74; PULSE 107; RESP 16; TEMP 36.3; O2SAT 98
[2024-09-19 06:27] LABS: Hematocrit 36.2 % (42.0-52.0); Hemoglobin 11.4 g/dL (14.0-18.0); Mean Corpuscular HGB Conc 31.5 g/dl (32-36); Mean Corpuscular Hemoglobin 27.1 pg (26-34); Platelet Count Result 388 k/mm3 (150-375); Red Blood Count 4.21 M/mm3 (4.6-6.20); White Blood Count 13.5 K/mm3 (4.5-10.0)
[2024-09-19 07:15] LABS: Anion Gap 9 mmol/L (4-12); Blood Urea Nitrogen 10 mg/dL (9-20); Calcium 8.1 mg/dL (8.4-10.2); Carbon Dioxide 23 mmol/L (22-30); Chloride 109 mmol/L (98-107); Estimated CRCL calculation 128 ml/min; Estimated Glomerular Filt Rate > 60; Glucose 69 mg/dL (65-110); Magnesium 1.9 mg/dL (1.6-2.3); Potassium 4.1 mmol/L (3.4-5.0); Sodium 141 mmol/L (137-145)
[2024-09-19] MEDS: ENOXAPARIN 40 MG/0.4 ML SYRINGE SUB-Q (07:46)
[2024-09-19] MEDS: ZINC SULFATE 220 MG CAPSULE PO (07:47)
[2024-09-19] MEDS: amLODIPine BESYLATE 5 MG TABLET BY MOUTH (07:47)
[2024-09-19] MEDS: POTASSIUM CHLORIDE 20 MEQ PACKET (FOR LIQUID) 40 MEQ PO ×2 (07:47→17:13)
[2024-09-19] MEDS: EMPAGLIFLOZIN 25 MG TABLET PO (07:47)
[2024-09-19] MEDS: FLUCONAZOLE 100 MG TABLET 400 MG PO (07:47)
[2024-09-19] MEDS: MULTIVITAMINS THERAPEUTIC TAB (*BKC) 1 TABLET PO (07:47)
[2024-09-19] MEDS: lisinopriL 20 MG TABLET PO (07:47)
[2024-09-19] MEDS: glipiZIDE XL 2.5 MG TAB.ER.24 PO (07:48)
[2024-09-19 07:52] LABS: Glucose Point of Care 81 mg/dl (65-105)
[2024-09-19] MEDS: VANCOMYCIN 1,500 MG/NS 500 ML 1,500 MG/500 ML BAG 150 MG IVPB (08:58)
[2024-09-19 11:20] LABS: Glucose Point of Care 93 mg/dl (65-105)
--- NOTE | 2024-09-19 11:25 | PM.PNGS ---
Progress Note: A&P Assessment and Plan (1) Open wound of plantar aspect of right foot: Code(s): S91.301A - Unspecified open wound, right foot, initial encounter Status: Acute Assessment and Plan: Patient presented with a necrotizing soft tissue infection of the right foot s/p I&D and debridement 2 days ago. Wound vac changed today. Healing well. Will plan to change wound vac dressing again Tuesday. Continue broad-spectrum IV antibiotics, currently on Unasyn/Clindamycin/Vancomycin. Wound cx growing prevotella bivia and staph aureus, continue to follow. 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 Sims Subjective Subjective Date/Time Seen: 09/19/24 11:25 Interval history: No acute changes overnight. WBC trending down. First wound vac change today. Tolerated well. Exam Narrative: Right foot with wound vac dressing dry and intact, functioning well Extrem: Other: POD2 after R foot I&D of abscess. Wound vac changed today. Healing well. No areas of purulence, fluctuance, or necrosis Noted areas of granulation tissue and on dorsal foot wound there is a small area of yellow/linares slough. Plantar wound 100% pink tissue with granulation tissue in wound bed. Redness and swelling to foot has improved. He has movement and sensation in all toes aside from decreased ROM of 5th toe. Canister with minimal serosanguineous fluid. Objective Data Vital Signs Vital Signs: Vital Signs - 24 hr 09/18/24 14:00 09/18/24 21:05 09/19/24 06:00 Temperature 97.5 F L 97.5 F L 97.3 F L Pulse Rate 99 98 107 H Respiratory Rate 20 18 16 Blood Pressure 146/77 H 141/78 H 154/74 H Pulse Oximetry 99 99 98 Oxygen Delivery 09/19/24 08:00 Temperature Pulse Rate Respiratory Rate Blood Pressure Pulse Oximetry Oxygen Delivery Room Air Intake/Output Intake/Output: Intake & Output 09/16/24 09/17/24 09/18/24 09/19/24 23:59 23:59 23:59 23:59 Intake Total 2500 3470 1058 Output Total 950 1400 1075 Balance 1550 2070 -17 Meds/Results Medications: Active Medications Generic Name Dose Route Start Last Admin Trade Name Freq PRN Reason Stop Dose Admin Acetaminophen 1,000 mg 09/17/24 19:00 Acetaminophen 500 Mg Tablet PO Q6H PRN Mild Pain (1-3) or Fever Hydrocodone Bitart/Acetaminophen 1 tab 09/17/24 19:00 09/18/24 20:27 Hydrocodone/Acetaminophen (*Crx) 5-325 Mg Tablet PO 1 tab Q4H PRN Administration Pain Rated 4-6 Amlodipine Besylate 5 mg 09/18/24 09:00 09/19/24 07:47 Amlodipine Besylate 5 Mg Tablet BY MOUTH 5 mg DAILY YUKO Administration Dextrose 12.5 gm 09/17/24 04:53 Dextrose 50% 25 Gm/50 Ml Syringe IV PUSH PRN PRN Hypoglycemia Protocol Empagliflozin 25 mg 09/18/24 09:00 09/19/24 07:47 Empagliflozin 25 Mg Tablet PO 25 mg DAILY YUKO Administration Enoxaparin Sodium 40 mg 09/18/24 09:00 09/19/24 07:46 Enoxaparin 40 Mg/0.4 Ml Syringe SUB-Q 40 mg DAILY YUKO Administration Fluconazole 400 mg 09/20/24 09:00 Fluconazole 100 Mg Tablet PO QAM YUKO Gabapentin 300 mg 09/17/24 21:00 09/18/24 20:30 Gabapentin 300 Mg Capsule PO 300 mg QHS YUKO Administration Glipizide 2.5 mg 09/18/24 09:00 09/19/24 07:48 Glipizide Xl 2.5 Mg Tab.Er.24 PO 2.5 mg DAILY YUKO Administration Glucagon 1 mg 09/17/24 04:53 Glucagon For Inj 1 Mg Vial IM PRN PRN Hypoglycemia Protocol Glucose 15 gm 09/17/24 04:53 Glucose Oral Gel 15 Gm Of Glucse In 37.5 Gm Tube PO PRN PRN Hypoglycemia Protocol Hydralazine HCl 10 mg 09/17/24 22:25 Hydralazine 10 Mg Tablet PO QID PRN Hypertensive Emergency Clindamycin Phosphate 600 mg in 50 mls @ 100 mls/hr 09/17/24 14:00 09/19/24 05:16 Clindamycin 600 Mg/D5w 50 Ml IVPB 100 mls/hr Q8HR YUKO Administration Ampicillin Sodium/Sulbactam Sodium 3 gm in 100 mls @ 200 mls/hr 09/18/24 21:00 09/19/24 08:16 Unasyn 3 Gm/Ns 100 Ml IVPB Infused Q6H YUKO Infusion Vancomycin HCl 1,500 mg in 500 mls @ 250 mls/hr 09/18/24 18:00 09/19/24 08:58 Vancomycin 1,500 Mg/Ns 500 Ml IVPB 150 mls/hr Q8H YUKO Administration Insulin Aspart 6 units 09/17/24 17:00 09/19/24 07:48 Insulin Aspart (*Bkc) 100 Units/Ml 0.05 units/kg (6 units) Not Given SUB-Q TIDWM [facility] Insulin Glargine 10 units 09/17/24 21:00 09/18/24 21:21 Insulin Glargine (*Bkc) 100 Units/Ml SUB-Q 10 units QHS YUKO Administration Lisinopril 20 mg 09/18/24 09:00 09/19/24 07:47 Lisinopril 20 Mg Tablet PO 20 mg DAILY YUKO Administration Morphine Sulfate 4 mg 09/17/24 19:00 Morphine Sulfate (*Crx) 4 Mg/Ml Inj IV PUSH Q4H PRN Pain Rated 7-10 IF NPO Multivitamins Therapeutic 1 tablet 09/18/24 09:00 09/19/24 07:47 Multivitamins Therapeutic Tab (*Bkc) PO 1 tablet DAILY YUKO Administration Ondansetron HCl 4 mg 09/17/24 04:53 Ondansetron Inj 4 Mg/2 Ml Vial IV PUSH Q4H PRN Nausea Oxycodone HCl 5 mg 09/17/24 19:00 09/19/24 10:35 Oxycodone Hcl (*Crx) 5 Mg Tab Ir PO 5 mg Q4H PRN Administration Pain Rated 7-10 Potassium Chloride 40 meq 09/17/24 17:00 09/19/24 07:47 Potassium Chloride 20 Meq Packet (For Liquid) PO 40 meq BID YUOK Administration Zinc Sulfate 220 mg 09/18/24 09:00 09/19/24 07:47 Zinc Sulfate 220 Mg Capsule PO 220 mg DAILY YUKO Administration Radiology Results: ITS Impressions Foot CT 09/17/24 06:42 IMPRESSION: Extensive soft tissue gas and fluid/edema predominantly the dorsal aspect of the forefoot, especially from the region of the fourth interspace extending proximally to the level of the proximal third metatarsal shaft. Findings raise suspicion for soft tissue gas forming infection/necrotizing fasciitis with associated phlegmon and developing irregular abscess in the dorsal aspect of the forefoot. Additional possible wound or ulcer at the fifth MTP joint region at the plantar aspect of the foot. No CT evidence for osteomyelitis. Venous Doppler Study 09/17/24 13:20 IMPRESSION: 1: No lower extremity deep venous thrombosis. Labs Labs: Laboratory Results - last 24 hr 09/18/24 09/18/24 09/18/24 12:12 17:00 17:03 WBC RBC Hgb Hct MCV MCH MCHC RDW Plt Count MPV Sodium Potassium Chloride Carbon Dioxide Anion Gap BUN Creatinine Estim Creat Clear Calc Estimated GFR Glucose POC Capillary Glucose 249 H 101 Calcium Magnesium Vancomycin Trough 9.6 L 09/18/24 09/19/24 09/19/24 19:40 05:22 07:26 WBC 13.5 H RBC 4.21 L Hgb 11.4 L Hct 36.2 L MCV 86.0 MCH 27.1 MCHC 31.5 L RDW 14.0 Plt Count 388 H MPV 10.0 Sodium 141 Potassium 4.1 Chloride 109 H Carbon Dioxide 23 Anion Gap 9 BUN 10 Creatinine 0.78 Estim Creat Clear Calc 128 Estimated GFR > 60 Glucose 69 POC Capillary Glucose 111 H 81 Calcium 8.1 L Magnesium 1.9 Vancomycin Trough 09/19/24 11:17 WBC RBC Hgb Hct MCV MCH MCHC RDW Plt Count MPV Sodium Potassium Chloride Carbon Dioxide Anion Gap BUN Creatinine Estim Creat Clear Calc Estimated GFR Glucose POC Capillary Glucose 93 Calcium Magnesium Vancomycin Trough
--- NOTE | 2024-09-19 13:57 | P.PNIM_ITS ---
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 (2) Morbid obesity with BMI of 40.0-44.9, adult: Code(s): E66.01 - Morbid (severe) obesity due to excess calories; Z68.41 - Body mass index [BMI] 40.0-44.9, adult Status: Acute Assessment and Plan: weight loss adviced (3) Hypokalemia: Code(s): E87.6 - Hypokalemia Status: Acute Assessment and Plan: watch potassium levels abd replace accoirdingly (4) Open wound of plantar aspect of right foot: Code(s): S91.301A - Unspecified open wound, right foot, initial encounter Status: Acute Assessment and Plan: pt going to go for I and D today under general surgery continue npo with D51/2 NS can start diet DM after procedure and DC fluids ct shows necrotitis fascitis surgery decided on i and d (5) Infected puncture wound of plantar aspect of foot: Code(s): S91.339A - Puncture wound without foreign body, unspecified foot, initial encounter; L08.9 - Local infection of the skin and subcutaneous tissue, unspecified Status: Acute Assessment and Plan: likely due to putting extra weight on R side continue iv vancomycin and iv zosyn and cephalexin await wound cultures post procedure follow bc from yesterday (6) Essential hypertension: Code(s): I10 - Essential (primary) hypertension Status: Acute Assessment and Plan: watch Blood pressure continue lisinopril and norvasc add oral hydralazine prn high bps Plan patient presented with open wound of planter aspect of right foot wound, most likely due to diabetes, was found to have necrotizing soft tissue, and had I&D, with debridement on 09/17, CT scan of the foot did not show any OM, patient white counts are improving 13.5 compared to 29.5 upon arrival, patient wound is growing Staph aureus and Prevotella bivia, repeat foot culture growing same organisms, and being treated with Ampicillin, Clindamycin and vancomycin will follow of blood and wound culture, seen by surgery service today wound vac dressing was changed, and will change again on Tuesday, further recommendation to follow. DVT prop lovenox code full code Subjective Date/time seen: 09/19/24 13:57 Interval history: Chief Complaint: wound on R foot H&P-Narrative: 49 year old male PMH of type 2 dm, obesity and htn. 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, often finds it hard to look after his diabetes patient presented with open wound of planter aspect of right foot wound, most likely due to diabetes, was found to have necrotizing soft tissue, and had I&D, with debridement on 09/17, CT scan of the foot did not show any OM, patient white counts are improving 13.5 compared to 29.5 upon arrival, patient wound is growing Staph aureus and Prevotella bivia, repeat foot culture growing same organisms, and being treated with Ampicillin, Clindamycin and vancomycin will follow of blood and wound culture, seen by surgery service today wound vac dressing was changed, and will change again on Tuesday, further recommendation to follow. Review of Systems Review of Systems: foot wound no other specific compliants all 12 systems reviewed and are negative apart from HPI Exam Narrative: Patient is comfortable, NAD HEENT: eyes are clear and none icteric LUNGS:CTA HEART: RR S1S2 ABD: BS+, Soft and nontender Lower extremities: left BKA, right leg with dressing. SKIN: nonjaundiced Neuro: grossly intact. Objective Data Vital Signs Vital Signs: Vital Signs - 24 hr 09/18/24 14:00 09/18/24 21:05 09/19/24 06:00 Temperature 36.4 C L 36.4 C L 36.3 C L Pulse Rate 99 98 107 H Respiratory Rate 20 18 16 Blood Pressure 146/77 H 141/78 H 154/74 H Pulse Oximetry 99 99 98 Oxygen Delivery 09/19/24 08:00 Temperature Pulse Rate Respiratory Rate Blood Pressure Pulse Oximetry Oxygen Delivery Room Air Intake/Output Intake/Output: Intake & Output 09/16/24 09/17/24 09/18/24 09/19/24 23:59 23:59 23:59 23:59 Intake Total 2500 3470 1608 Output Total 950 1400 1075 Balance 1550 2070 533 Meds/Results Medications: Active Medications Generic Name Dose Route Start Last Admin Trade Name Freq PRN Reason Stop Dose Admin Acetaminophen 1,000 mg 09/17/24 19:00 Acetaminophen 500 Mg Tablet PO Q6H PRN Mild Pain (1-3) or Fever Hydrocodone Bitart/Acetaminophen 1 tab 09/17/24 19:00 09/18/24 20:27 Hydrocodone/Acetaminophen (*Crx) 5-325 Mg Tablet PO 1 tab Q4H PRN Administration Pain Rated 4-6 Amlodipine Besylate 5 mg 09/18/24 09:00 09/19/24 07:47 Amlodipine Besylate 5 Mg Tablet BY MOUTH 5 mg DAILY YUKO Administration Dextrose 12.5 gm 09/17/24 04:53 Dextrose 50% 25 Gm/50 Ml Syringe IV PUSH PRN PRN Hypoglycemia Protocol Empagliflozin 25 mg 09/18/24 09:00 09/19/24 07:47 Empagliflozin 25 Mg Tablet PO 25 mg DAILY YUKO Administration Enoxaparin Sodium 40 mg 09/18/24 09:00 09/19/24 07:46 Enoxaparin 40 Mg/0.4 Ml Syringe SUB-Q 40 mg DAILY YUKO Administration Fluconazole 400 mg 09/20/24 09:00 Fluconazole 100 Mg Tablet PO QAM YUKO Gabapentin 300 mg 09/17/24 21:00 09/18/24 20:30 Gabapentin 300 Mg Capsule PO 300 mg QHS YUKO Administration Glipizide 2.5 mg 09/18/24 09:00 09/19/24 07:48 Glipizide Xl 2.5 Mg Tab.Er.24 PO 2.5 mg DAILY YUKO Administration Glucagon 1 mg 09/17/24 04:53 Glucagon For Inj 1 Mg Vial IM PRN PRN Hypoglycemia Protocol Glucose 15 gm 09/17/24 04:53 Glucose Oral Gel 15 Gm Of Glucse In 37.5 Gm Tube PO PRN PRN Hypoglycemia Protocol Hydralazine HCl 10 mg 09/17/24 22:25 Hydralazine 10 Mg Tablet PO QID PRN Hypertensive Emergency Clindamycin Phosphate 600 mg in 50 mls @ 100 mls/hr 09/17/24 14:00 09/19/24 13:40 Clindamycin 600 Mg/D5w 50 Ml IVPB 100 mls/hr Q8HR YUKO Administration Ampicillin Sodium/Sulbactam Sodium 3 gm in 100 mls @ 200 mls/hr 09/18/24 21:00 09/19/24 08:16 Unasyn 3 Gm/Ns 100 Ml IVPB Infused Q6H YUKO Infusion Vancomycin HCl 1,500 mg in 500 mls @ 250 mls/hr 09/18/24 18:00 09/19/24 12:18 Vancomycin 1,500 Mg/Ns 500 Ml IVPB Infused Q8H YUKO Infusion Insulin Aspart 6 units 09/17/24 17:00 09/19/24 12:00 Insulin Aspart (*Bkc) 100 Units/Ml 0.05 units/kg (6 units) Not Given SUB-Q TIDWM [facility] Insulin Glargine 10 units 09/17/24 21:00 09/18/24 21:21 Insulin Glargine (*Bkc) 100 Units/Ml SUB-Q 10 units QHS YUKO Administration Lisinopril 20 mg 09/18/24 09:00 09/19/24 07:47 Lisinopril 20 Mg Tablet PO 20 mg DAILY YUKO Administration Morphine Sulfate 4 mg 09/17/24 19:00 Morphine Sulfate (*Crx) 4 Mg/Ml Inj IV PUSH Q4H PRN Pain Rated 7-10 IF NPO Multivitamins Therapeutic 1 tablet 09/18/24 09:00 09/19/24 07:47 Multivitamins Therapeutic Tab (*Bkc) PO 1 tablet DAILY YUKO Administration Ondansetron HCl 4 mg 09/17/24 04:53 Ondansetron Inj 4 Mg/2 Ml Vial IV PUSH Q4H PRN Nausea Oxycodone HCl 5 mg 09/17/24 19:00 09/19/24 10:35 Oxycodone Hcl (*Crx) 5 Mg Tab Ir PO 5 mg Q4H PRN Administration Pain Rated 7-10 Potassium Chloride 40 meq 09/17/24 17:00 09/19/24 07:47 Potassium Chloride 20 Meq Packet (For Liquid) PO 40 meq BID YUKO Administration Zinc Sulfate 220 mg 09/18/24 09:00 09/19/24 07:47 Zinc Sulfate 220 Mg Capsule PO 220 mg DAILY YUKO Administration Radiology Results: ITS Impressions Foot CT 09/17/24 06:42 IMPRESSION: Extensive soft tissue gas and fluid/edema predominantly the dorsal aspect of the forefoot, especially from the region of the fourth interspace extending proximally to the level of the proximal third metatarsal shaft. Findings raise suspicion for soft tissue gas forming infection/necrotizing fasciitis with associated phlegmon and developing irregular abscess in the dorsal aspect of the forefoot. Additional possible wound or ulcer at the fifth MTP joint region at the plantar aspect of the foot. No CT evidence for osteomyelitis. Venous Doppler Study 09/17/24 13:20 IMPRESSION: 1: No lower extremity deep venous thrombosis. Labs Labs: Laboratory Results - last 24 hr 09/18/24 09/18/24 09/18/24 17:00 17:03 19:40 WBC RBC Hgb Hct MCV MCH MCHC RDW Plt Count MPV Sodium Potassium Chloride Carbon Dioxide Anion Gap BUN Creatinine Estim Creat Clear Calc Estimated GFR Glucose POC Capillary Glucose 101 111 H Calcium Magnesium Vancomycin Trough 9.6 L 09/19/24 09/19/24 09/19/24 05:22 07:26 11:17 WBC 13.5 H RBC 4.21 L Hgb 11.4 L Hct 36.2 L MCV 86.0 MCH 27.1 MCHC 31.5 L RDW 14.0 Plt Count 388 H MPV 10.0 Sodium 141 Potassium 4.1 Chloride 109 H Carbon Dioxide 23 Anion Gap 9 BUN 10 Creatinine 0.78 Estim Creat Clear Calc 128 Estimated GFR > 60 Glucose 69 POC Capillary Glucose 81 93 Calcium 8.1 L Magnesium 1.9 Vancomycin Trough
[2024-09-19 14:00] VITALS: BP 164/83; PULSE 103; RESP 16; TEMP 36.9; O2SAT 100
--- NOTE | 2024-09-19 14:05 | PC.NURSE ---
Spoke with fitter tacker Martha about consult placed. Martha will see patient on Thursday 09/21.
[2024-09-19 16:19] LABS: Glucose Point of Care 103 mg/dl (65-105)
[2024-09-19 17:36] LABS: Vancomycin Trough 14.4 ug/mL (10.0-20.0)
[2024-09-19] MEDS: VANCOMYCIN 1,750 MG/NS 500 ML 1,750 MG/500 ML BAG 150 MG IVPB (18:03)
[2024-09-19] MEDS: GABAPENTIN 300 MG CAPSULE PO (20:31)
[2024-09-19 20:48] LABS: Glucose Point of Care 119 mg/dl (65-105)
[2024-09-19 21:00] VITALS: BP 159/86; PULSE 107; RESP 20; TEMP 37.3; O2SAT 100
[2024-09-19] MEDS: INSULIN GLARGINE (*BKC) 100 UNITS/ML 10 UNITS SUB-Q (21:58)
[2024-09-20] MEDS: oxyCODONE HCL (*CRX) 5 MG TAB IR PO ×2 (04:53→21:00)
[2024-09-20 05:13] VITALS: BP 131/66; PULSE 97; RESP 16; TEMP 36.8; O2SAT 94
[2024-09-20 06:35] LABS: Hematocrit 34.5 % (42.0-52.0); Hemoglobin 10.9 g/dL (14.0-18.0); Mean Corpuscular HGB Conc 31.6 g/dl (32-36); Mean Corpuscular Hemoglobin 27.3 pg (26-34); Mean Corpuscular Volume 86.5 fl (80-100); Platelet Count Result 416 k/mm3 (150-375); Red Blood Count 3.99 M/mm3 (4.6-6.20); Red Cell Distribution Width 13.9 % (11.5-14.5); White Blood Count 13.4 K/mm3 (4.5-10.0)
[2024-09-20 06:57] LABS: Anion Gap 11 mmol/L (4-12); Blood Urea Nitrogen 10 mg/dL (9-20); Calcium 8.4 mg/dL (8.4-10.2); Carbon Dioxide 23 mmol/L (22-30); Chloride 104 mmol/L (98-107); Estimated CRCL calculation 131 ml/min; Estimated Glomerular Filt Rate > 60; Glucose 74 mg/dL (65-110); Potassium 3.8 mmol/L (3.4-5.0); Sodium 138 mmol/L (137-145)
[2024-09-20 08:00] LABS: Glucose Point of Care 69 mg/dl (65-105)
[2024-09-20] MEDS: lisinopriL 20 MG TABLET PO (08:30)
[2024-09-20] MEDS: amLODIPine BESYLATE 5 MG TABLET BY MOUTH (08:30)
[2024-09-20] MEDS: glipiZIDE XL 2.5 MG TAB.ER.24 PO (08:30)
[2024-09-20] MEDS: AMPICILLIN SULB 3 GM/NS 100 ML 3 GM/100 ML VIAL IVPB ×2 (08:30→13:45)
[2024-09-20] MEDS: ZINC SULFATE 220 MG CAPSULE PO (08:30)
[2024-09-20] MEDS: EMPAGLIFLOZIN 25 MG TABLET PO (08:30)
[2024-09-20] MEDS: POTASSIUM CHLORIDE 20 MEQ PACKET (FOR LIQUID) 40 MEQ PO ×2 (08:30→17:22)
[2024-09-20] MEDS: MULTIVITAMINS THERAPEUTIC TAB (*BKC) 1 TABLET PO (08:30)
[2024-09-20] MEDS: ENOXAPARIN 40 MG/0.4 ML SYRINGE SUB-Q (08:30)
[2024-09-20] MEDS: HYDROcodone/acetaminophen (*CRX) 5-325 MG TABLET 1 TAB PO ×2 (08:30→17:33)
[2024-09-20] MEDS: VANCOMYCIN 1,750 MG/NS 500 ML 1,750 MG/500 ML BAG 250 MG IVPB ×2 (09:45→17:22)
[2024-09-20] MEDS: FLUCONAZOLE 100 MG TABLET 400 MG PO (10:29)
--- NOTE | 2024-09-20 11:17 | PM.PNGS ---
Progress Note: A&P Assessment and Plan (1) Open wound of plantar aspect of right foot: Code(s): S91.301A - Unspecified open wound, right foot, initial encounter Status: Acute Assessment and Plan: Patient presented with a necrotizing soft tissue infection of the right foot and is POD3 following I&D and debridement. Continue wound VAC therapy. We will plan on changing the wound VAC dressing tomorrow. Continue broad-spectrum IV antibiotics, currently on Unasyn/Clindamycin/Vancomycin. Both wound cultures are growing prevotella bivia, group B strep, and staph aureus, continue to follow. Sensitivities on the initial wound culture in the ED show MSSA. PT/OT following, okay to do heel-touch weight bearing for transfers on his right lower extremity. (2) Type 2 diabetes mellitus with hyperglycemia: Qualifiers: Diabetes mellitus intermediate insulin use: without terminal carman use Qualified Code(s): E11.65 - Type 2 diabetes mellitus with hyperglycemia Code(s): E11.65 - Type 2 diabetes mellitus with hyperglycemia Status: Acute (3) Morbid obesity with BMI of 40.0-44.9, adult: Code(s): E66.01 - Morbid (severe) obesity due to excess calories; Z68.41 - Body mass index [BMI] 40.0-44.9, adult Status: Acute Plan I have discussed the patient's case and plan of care with Dr. Sims Subjective Subjective Date/Time Seen: 09/20/24 11:17 Patient reports: afebrile Interval history: No specific complaints this morning. He is afebrile. WBC count still at 13,000. He did lose IV access overnight and missed 2 doses of Unasyn, 1 dose of clindamycin, and 1 dose of vancomycin. Failed attempts by nursing staff overnight, but eventually had a peripheral IV placed by vascular access this morning. IV antibiotics have been resumed. Exam Extrem: Other: Right foot wound VAC dressing in place, functioning well, dressing dry and intact. Serosanguineous drainage in canister. Overall edema of the foot improved. Objective Data Vital Signs Vital Signs: Vital Signs - 24 hr 09/19/24 14:00 09/19/24 20:00 09/19/24 21:00 Temperature 98.5 F 99.2 F Pulse Rate 103 H 107 H Respiratory Rate 16 20 Blood Pressure 164/83 H 159/86 H Pulse Oximetry 100 100 Oxygen Delivery Room Air 09/20/24 05:13 Temperature 98.2 F Pulse Rate 97 Respiratory Rate 16 Blood Pressure 131/66 Pulse Oximetry 94 Oxygen Delivery Intake/Output Intake/Output: Intake & Output 09/17/24 09/18/24 09/19/24 09/20/24 23:59 23:59 23:59 23:59 Intake Total 2500 3470 3578 120 Output Total 950 1400 3750 1325 Balance 1550 7535 -[id number] Meds/Results Medications: Active Medications Generic Name Dose Route Start Last Admin Trade Name Freq PRN Reason Stop Dose Admin Acetaminophen 1,000 mg 09/17/24 19:00 Acetaminophen 500 Mg Tablet PO Q6H PRN Mild Pain (1-3) or Fever Hydrocodone Bitart/Acetaminophen 1 tab 09/17/24 19:00 09/20/24 08:30 Hydrocodone/Acetaminophen (*Crx) 5-325 Mg Tablet PO 1 tab Q4H PRN Administration Pain Rated 4-6 Amlodipine Besylate 5 mg 09/18/24 09:00 09/20/24 08:30 Amlodipine Besylate 5 Mg Tablet BY MOUTH 5 mg DAILY YUKO Administration Dextrose 12.5 gm 09/17/24 04:53 Dextrose 50% 25 Gm/50 Ml Syringe IV PUSH PRN PRN Hypoglycemia Protocol Empagliflozin 25 mg 09/18/24 09:00 09/20/24 08:30 Empagliflozin 25 Mg Tablet PO 25 mg DAILY YUKO Administration Enoxaparin Sodium 40 mg 09/18/24 09:00 09/20/24 08:30 Enoxaparin 40 Mg/0.4 Ml Syringe SUB-Q 40 mg DAILY YUKO Administration Fluconazole 400 mg 09/20/24 09:00 09/20/24 10:29 Fluconazole 100 Mg Tablet PO 400 mg QAM YUKO Administration Gabapentin 300 mg 09/17/24 21:00 09/19/24 20:31 Gabapentin 300 Mg Capsule PO 300 mg QHS YKUO Administration Glipizide 2.5 mg 09/18/24 09:00 09/20/24 08:30 Glipizide Xl 2.5 Mg Tab.Er.24 PO 2.5 mg DAILY YUKO Administration Glucagon 1 mg 09/17/24 04:53 Glucagon For Inj 1 Mg Vial IM PRN PRN Hypoglycemia Protocol Glucose 15 gm 09/17/24 04:53 Glucose Oral Gel 15 Gm Of Glucse In 37.5 Gm Tube PO PRN PRN Hypoglycemia Protocol Hydralazine HCl 10 mg 09/17/24 22:25 Hydralazine 10 Mg Tablet PO QID PRN Hypertensive Emergency Ampicillin Sodium/Sulbactam Sodium 3 gm in 100 mls @ 200 mls/hr 09/20/24 08:00 09/20/24 08:30 Unasyn 3 Gm/Ns 100 Ml IVPB 200 mls/hr Q6H YUKO Administration Clindamycin Phosphate 600 mg in 50 mls @ 100 mls/hr 09/20/24 11:00 Clindamycin 600 Mg/D5w 50 Ml IVPB Q8H YUKO Vancomycin HCl 1,750 mg in 500 mls @ 250 mls/hr 09/20/24 09:00 09/20/24 09:45 Vancomycin 1,750 Mg/Ns 500 Ml IVPB 250 mls/hr Q8H YUKO Administration Insulin Aspart 2 - 5 units 09/20/24 08:00 09/20/24 08:23 Insulin Aspart (*Bkc) 100 Units/Ml SUB-Q Not Given TIDWM [facility] Protocol Insulin Glargine 10 units 09/17/24 21:00 09/19/24 21:58 Insulin Glargine (*Bkc) 100 Units/Ml SUB-Q 10 units QHS YUKO Administration Lisinopril 20 mg 09/18/24 09:00 09/20/24 08:30 Lisinopril 20 Mg Tablet PO 20 mg DAILY YUKO Administration Morphine Sulfate 4 mg 09/17/24 19:00 Morphine Sulfate (*Crx) 4 Mg/Ml Inj IV PUSH Q4H PRN Pain Rated 7-10 IF NPO Multivitamins Therapeutic 1 tablet 09/18/24 09:00 09/20/24 08:30 Multivitamins Therapeutic Tab (*Bkc) PO 1 tablet DAILY YUKO Administration Ondansetron HCl 4 mg 09/17/24 04:53 Ondansetron Inj 4 Mg/2 Ml Vial IV PUSH Q4H PRN Nausea Oxycodone HCl 5 mg 09/17/24 19:00 09/20/24 04:53 Oxycodone Hcl (*Crx) 5 Mg Tab Ir PO 5 mg Q4H PRN Administration Pain Rated 7-10 Potassium Chloride 40 meq 09/17/24 17:00 09/20/24 08:30 Potassium Chloride 20 Meq Packet (For Liquid) PO 40 meq BID YUKO Administration Zinc Sulfate 220 mg 09/18/24 09:00 09/20/24 08:30 Zinc Sulfate 220 Mg Capsule PO 220 mg DAILY YUKO Administration Radiology Results: ITS Impressions Foot CT 09/17/24 06:42 IMPRESSION: Extensive soft tissue gas and fluid/edema predominantly the dorsal aspect of the forefoot, especially from the region of the fourth interspace extending proximally to the level of the proximal third metatarsal shaft. Findings raise suspicion for soft tissue gas forming infection/necrotizing fasciitis with associated phlegmon and developing irregular abscess in the dorsal aspect of the forefoot. Additional possible wound or ulcer at the fifth MTP joint region at the plantar aspect of the foot. No CT evidence for osteomyelitis. Venous Doppler Study 09/17/24 13:20 IMPRESSION: 1: No lower extremity deep venous thrombosis. Labs Labs: Laboratory Results - last 24 hr 09/19/24 09/19/24 09/19/24 11:17 16:14 17:13 WBC RBC Hgb Hct MCV MCH MCHC RDW Plt Count MPV Sodium Potassium Chloride Carbon Dioxide Anion Gap BUN Creatinine Estim Creat Clear Calc Estimated GFR Glucose POC Capillary Glucose 93 103 Calcium Magnesium Vancomycin Trough 14.4 09/19/24 09/20/24 09/20/24 19:35 05:29 07:43 WBC 13.4 H RBC 3.99 L Hgb 10.9 L Hct 34.5 L MCV 86.5 MCH 27.3 MCHC 31.6 L RDW 13.9 Plt Count 416 H MPV 10.0 Sodium 138 Potassium 3.8 Chloride 104 Carbon Dioxide 23 Anion Gap 11 BUN 10 Creatinine 0.76 Estim Creat Clear Calc 131 Estimated GFR > 60 Glucose 74 POC Capillary Glucose 119 H 69 Calcium 8.4 Magnesium 2.0 Vancomycin Trough
[2024-09-20] MEDS: CLINDAMYCIN 600 MG/D5W 50 ML 600 MG/50 ML PIGGYBACK 100 MG IVPB (11:45)
[2024-09-20 11:55] LABS: Glucose Point of Care 95 mg/dl (65-105)
[2024-09-20 14:00] VITALS: BP 145/81; PULSE 92; RESP 18; TEMP 36.8; O2SAT 100
--- NOTE | 2024-09-20 14:10 | PM.IMPN ---
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 (2) Morbid obesity with BMI of 40.0-44.9, adult: Code(s): E66.01 - Morbid (severe) obesity due to excess calories; Z68.41 - Body mass index [BMI] 40.0-44.9, adult Status: Acute Assessment and Plan: weight loss adviced (3) Hypokalemia: Code(s): E87.6 - Hypokalemia Status: Acute Assessment and Plan: watch potassium levels abd replace accoirdingly (4) Open wound of plantar aspect of right foot: Code(s): S91.301A - Unspecified open wound, right foot, initial encounter Status: Acute Assessment and Plan: pt going to go for I and D today under general surgery continue npo with D51/2 NS can start diet DM after procedure and DC fluids ct shows necrotitis fascitis surgery decided on i and d (5) Infected puncture wound of plantar aspect of foot: Code(s): S91.339A - Puncture wound without foreign body, unspecified foot, initial encounter; L08.9 - Local infection of the skin and subcutaneous tissue, unspecified Status: Acute Assessment and Plan: likely due to putting extra weight on R side continue iv vancomycin and iv zosyn and cephalexin await wound cultures post procedure follow bc from yesterday (6) Essential hypertension: Code(s): I10 - Essential (primary) hypertension Status: Acute Assessment and Plan: watch Blood pressure continue lisinopril and norvasc add oral hydralazine prn high bps Plan patient presented with open wound of planter aspect of right foot wound, most likely due to diabetes, was found to have necrotizing soft tissue, and had I&D, with debridement on 09/17, CT scan of the foot did not show any OM, patient white counts are improving 13.4 compared to 29.5 upon arrival, patient wound is growing Staph aureus, strep,and Prevotella bivia, repeat foot culture growing same organisms, and being treated with Ampicillin, Clindamycin and vancomycin will follow of blood and wound culture, seen by surgery service today wound vac dressing was changed on 08/19 will redress tomorrow and further recommendation to follow. DVT prop lovenox code full code Subjective Date/time seen: 09/20/24 14:10 Interval history: Chief Complaint: wound on R foot H&P-Narrative: 49 year old male PMH of type 2 dm, obesity and htn. 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, often finds it hard to look after his diabetes patient presented with open wound of planter aspect of right foot wound, most likely due to diabetes, was found to have necrotizing soft tissue, and had I&D, with debridement on 09/17, CT scan of the foot did not show any OM, patient white counts are improving 13.4 compared to 29.5 upon arrival, patient wound is growing Staph aureus, strep,and Prevotella bivia, repeat foot culture growing same organisms, and being treated with Ampicillin, Clindamycin and vancomycin will follow of blood and wound culture, seen by surgery service today wound vac dressing was changed on 08/19 will redress tomorrow and further recommendation to follow. Review of Systems Review of Systems: foot wound no other specific compliants all 12 systems reviewed and are negative apart from HPI Exam Narrative: Patient is comfortable, NAD HEENT: eyes are clear and none icteric LUNGS:CTA HEART: RR S1S2 ABD: BS+, Soft and nontender Lower extremities: left BKA, right leg with dressing. SKIN: nonjaundiced Neuro: grossly intact. Objective Data Vital Signs Vital Signs: Vital Signs - 24 hr 09/19/24 20:00 09/19/24 21:00 09/20/24 05:13 Temperature 37.3 C 36.8 C Pulse Rate 107 H 97 Respiratory Rate 20 16 Blood Pressure 159/86 H 131/66 Pulse Oximetry 100 94 Oxygen Delivery Room Air Intake/Output Intake/Output: Intake & Output 09/17/24 09/18/24 09/19/24 09/20/24 23:59 23:59 23:59 23:59 Intake Total 2500 3470 3578 220 Output Total 950 1400 3750 1325 Balance 1550 4569 -[phone] -8239 Meds/Results Medications: Active Medications Generic Name Dose Route Start Last Admin Trade Name Freq PRN Reason Stop Dose Admin Acetaminophen 1,000 mg 09/17/24 19:00 Acetaminophen 500 Mg Tablet PO Q6H PRN Mild Pain (1-3) or Fever Hydrocodone Bitart/Acetaminophen 1 tab 09/17/24 19:00 09/20/24 08:30 Hydrocodone/Acetaminophen (*Crx) 5-325 Mg Tablet PO 1 tab Q4H PRN Administration Pain Rated 4-6 Amlodipine Besylate 5 mg 09/18/24 09:00 09/20/24 08:30 Amlodipine Besylate 5 Mg Tablet BY MOUTH 5 mg DAILY YUKO Administration Dextrose 12.5 gm 09/17/24 04:53 Dextrose 50% 25 Gm/50 Ml Syringe IV PUSH PRN PRN Hypoglycemia Protocol Empagliflozin 25 mg 09/18/24 09:00 09/20/24 08:30 Empagliflozin 25 Mg Tablet PO 25 mg DAILY YUKO Administration Enoxaparin Sodium 40 mg 09/18/24 09:00 09/20/24 08:30 Enoxaparin 40 Mg/0.4 Ml Syringe SUB-Q 40 mg DAILY YUKO Administration Fluconazole 400 mg 09/20/24 09:00 09/20/24 10:29 Fluconazole 100 Mg Tablet PO 400 mg QAM YUKO Administration Gabapentin 300 mg 09/17/24 21:00 09/19/24 20:31 Gabapentin 300 Mg Capsule PO 300 mg QHS YUKO Administration Glipizide 2.5 mg 09/18/24 09:00 09/20/24 08:30 Glipizide Xl 2.5 Mg Tab.Er.24 PO 2.5 mg DAILY YUKO Administration Glucagon 1 mg 09/17/24 04:53 Glucagon For Inj 1 Mg Vial IM PRN PRN Hypoglycemia Protocol Glucose 15 gm 09/17/24 04:53 Glucose Oral Gel 15 Gm Of Glucse In 37.5 Gm Tube PO PRN PRN Hypoglycemia Protocol Hydralazine HCl 10 mg 09/17/24 22:25 Hydralazine 10 Mg Tablet PO QID PRN Hypertensive Emergency Ampicillin Sodium/Sulbactam Sodium 3 gm in 100 mls @ 200 mls/hr 09/20/24 08:00 09/20/24 13:45 Unasyn 3 Gm/Ns 100 Ml IVPB 200 mls/hr Q6H YUKO Administration Clindamycin Phosphate 600 mg in 50 mls @ 100 mls/hr 09/20/24 11:00 09/20/24 11:45 Clindamycin 600 Mg/D5w 50 Ml IVPB 100 mls/hr Q8H YUKO Administration Vancomycin HCl 1,750 mg in 500 mls @ 250 mls/hr 09/20/24 09:00 09/20/24 09:45 Vancomycin 1,750 Mg/Ns 500 Ml IVPB 250 mls/hr Q8H YUKO Administration Insulin Aspart 2 - 5 units 09/20/24 08:00 09/20/24 12:00 Insulin Aspart (*Bkc) 100 Units/Ml SUB-Q Not Given [facility]ID[facility] Protocol Insulin Glargine 10 units 09/17/24 21:00 09/19/24 21:58 Insulin Glargine (*Bkc) 100 Units/Ml SUB-Q 10 units QHS YUKO Administration Lisinopril 20 mg 09/18/24 09:00 09/20/24 08:30 Lisinopril 20 Mg Tablet PO 20 mg DAILY YUKO Administration Morphine Sulfate 4 mg 09/17/24 19:00 Morphine Sulfate (*Crx) 4 Mg/Ml Inj IV PUSH Q4H PRN Pain Rated 7-10 IF NPO Multivitamins Therapeutic 1 tablet 09/18/24 09:00 09/20/24 08:30 Multivitamins Therapeutic Tab (*Bkc) PO 1 tablet DAILY YUKO Administration Ondansetron HCl 4 mg 09/17/24 04:53 Ondansetron Inj 4 Mg/2 Ml Vial IV PUSH Q4H PRN Nausea Oxycodone HCl 5 mg 09/17/24 19:00 09/20/24 04:53 Oxycodone Hcl (*Crx) 5 Mg Tab Ir PO 5 mg Q4H PRN Administration Pain Rated 7-10 Potassium Chloride 40 meq 09/17/24 17:00 09/20/24 08:30 Potassium Chloride 20 Meq Packet (For Liquid) PO 40 meq BID YUKO Administration Zinc Sulfate 220 mg 09/18/24 09:00 09/20/24 08:30 Zinc Sulfate 220 Mg Capsule PO 220 mg DAILY YUKO Administration Radiology Results: ITS Impressions Foot CT 09/17/24 06:42 IMPRESSION: Extensive soft tissue gas and fluid/edema predominantly the dorsal aspect of the forefoot, especially from the region of the fourth interspace extending proximally to the level of the proximal third metatarsal shaft. Findings raise suspicion for soft tissue gas forming infection/necrotizing fasciitis with associated phlegmon and developing irregular abscess in the dorsal aspect of the forefoot. Additional possible wound or ulcer at the fifth MTP joint region at the plantar aspect of the foot. No CT evidence for osteomyelitis. Venous Doppler Study 09/17/24 13:20 IMPRESSION: 1: No lower extremity deep venous thrombosis. Labs Labs: Laboratory Results - last 24 hr 09/19/24 09/19/24 09/19/24 16:14 17:13 19:35 WBC RBC Hgb Hct MCV MCH MCHC RDW Plt Count MPV Sodium Potassium Chloride Carbon Dioxide Anion Gap BUN Creatinine Estim Creat Clear Calc Estimated GFR Glucose POC Capillary Glucose 103 119 H Calcium Magnesium Vancomycin Trough 14.4 09/20/24 09/20/24 09/20/24 05:29 07:43 11:42 WBC 13.4 H RBC 3.99 L Hgb 10.9 L Hct 34.5 L MCV 86.5 MCH 27.3 MCHC 31.6 L RDW 13.9 Plt Count 416 H MPV 10.0 Sodium 138 Potassium 3.8 Chloride 104 Carbon Dioxide 23 Anion Gap 11 BUN 10 Creatinine 0.76 Estim Creat Clear Calc 131 Estimated GFR > 60 Glucose 74 POC Capillary Glucose 69 95 Calcium 8.4 Magnesium 2.0 Vancomycin Trough
[2024-09-20 16:56] LABS: Glucose Point of Care 75 mg/dl (65-105)
[2024-09-20 19:45] VITALS: O2SAT 100
[2024-09-20] MEDS: GABAPENTIN 300 MG CAPSULE PO (21:00)
[2024-09-20 21:18] LABS: Glucose Point of Care 129 mg/dl (65-105)
[2024-09-20 22:22] VITALS: BP 171/95; PULSE 102; RESP 16; TEMP 37.1; O2SAT 100
[2024-09-21] MEDS: CLINDAMYCIN 600 MG/D5W 50 ML 600 MG/50 ML PIGGYBACK 100 MG IVPB ×4 (00:25→18:38)
[2024-09-21 00:58] VITALS: BP 161/80; PULSE 106; RESP 20; TEMP 36.2; O2SAT 100
[2024-09-21] MEDS: oxyCODONE HCL (*CRX) 5 MG TAB IR PO ×5 (01:00→20:18)
[2024-09-21] MEDS: hydrALAZINE 10 MG TABLET PO (01:07)
[2024-09-21] MEDS: AMPICILLIN SULB 3 GM/NS 100 ML 3 GM/100 ML VIAL IVPB ×4 (02:14→20:19)
[2024-09-21 02:17] VITALS: BP 153/73; PULSE 102; RESP 18; O2SAT 96
[2024-09-21] MEDS: VANCOMYCIN 1,750 MG/NS 500 ML 1,750 MG/500 ML BAG 250 MG IVPB (02:44)
[2024-09-21 06:38] VITALS: BP 141/79; PULSE 92; RESP 16; TEMP 36.8; O2SAT 100
[2024-09-21 07:50] LABS: Glucose Point of Care 113 mg/dl (65-105)
[2024-09-21] MEDS: amLODIPine BESYLATE 5 MG TABLET BY MOUTH (07:50)
[2024-09-21] MEDS: MULTIVITAMINS THERAPEUTIC TAB (*BKC) 1 TABLET PO (07:50)
[2024-09-21] MEDS: FLUCONAZOLE 100 MG TABLET 400 MG PO (07:50)
[2024-09-21] MEDS: ZINC SULFATE 220 MG CAPSULE PO (07:50)
[2024-09-21] MEDS: glipiZIDE XL 2.5 MG TAB.ER.24 PO (07:50)
[2024-09-21] MEDS: lisinopriL 20 MG TABLET PO (07:51)
[2024-09-21] MEDS: EMPAGLIFLOZIN 25 MG TABLET PO (07:56)
[2024-09-21 08:57] LABS: Hematocrit 37.6 % (42.0-52.0); Hemoglobin 11.8 g/dL (14.0-18.0); Mean Corpuscular HGB Conc 31.4 g/dl (32-36); Mean Corpuscular Hemoglobin 27.3 pg (26-34); Mean Corpuscular Volume 86.8 fl (80-100); Mean Platelet Volume 9.6 fl (7.4-10.4); Platelet Count Result 441 k/mm3 (150-375); Red Blood Count 4.33 M/mm3 (4.6-6.20); Red Cell Distribution Width 13.9 % (11.5-14.5); White Blood Count 12.5 K/mm3 (4.5-10.0)
[2024-09-21 09:06] LABS: Anion Gap 9 mmol/L (4-12); Blood Urea Nitrogen 10 mg/dL (9-20); Calcium 8.3 mg/dL (8.4-10.2); Carbon Dioxide 23 mmol/L (22-30); Chloride 105 mmol/L (98-107); Estimated CRCL calculation 131 ml/min; Estimated Glomerular Filt Rate > 60; Glucose 108 mg/dL (65-110); Magnesium 2.1 mg/dL (1.6-2.3); Potassium 4.1 mmol/L (3.4-5.0); Sodium 137 mmol/L (137-145)
[2024-09-21] MEDS: ENOXAPARIN 40 MG/0.4 ML SYRINGE SUB-Q (09:31)
[2024-09-21] MEDS: VANCOMYCIN 1,750 MG/NS 500 ML 1,750 MG/500 ML BAG 175 MG IVPB (09:31)
[2024-09-21 10:33] LABS: Vancomycin Trough 28.4 ug/mL (10.0-20.0)
--- NOTE | 2024-09-21 10:58 | PCPTNOTE ---
Attempted to see patient for PT, however patient waiting on wound care to finish dressing change. Patient also stated he feels he will not be able to do therapy this date.
[2024-09-21 11:29] LABS: Glucose Point of Care 132 mg/dl (65-105)
--- NOTE | 2024-09-21 12:49 | P.PNGS_ITS ---
Progress Note: A&P Assessment and Plan (1) Open wound of plantar aspect of right foot: Code(s): S91.301A - Unspecified open wound, right foot, initial encounter Status: Acute Assessment and Plan: Start application of Santyl ointment to slough tissue with application of adaptic gauze over tendon. Continue broad-spectrum IV antibiotics, currently on Unasyn/Clindamycin/Vancomycin. Both wound cultures are growing prevotella bivia, group B strep, and staph aureus, continue to follow. Sensitivities on the initial wound culture in the ED show MSSA. PT/OT following, okay to do heel- touch weight bearing for transfers on his right lower extremity. Subjective Subjective Date/Time Seen: 09/21/24 12:49 Interval history: WBC 12.5, slightly decreased from 13.4 yesterday. Afebrile overnight. Wound vac changed with wound care nurse and Dr. Sims. Exam Extrem: Other: Right foot wound VAC dressing in place, functioning well, dressing dry and intact. Serosanguineous drainage in canister. Plantar foot wound measures 2c in length by 2.5 cm in width by 0.1 cm in depth. Wound bed with red healthy granulation tissue and yellow slough. No signs or symptoms of infection including necrosis or purulent drainage. Objective Data Vital Signs Vital Signs: Vital Signs - 24 hr 09/20/24 14:00 09/20/24 15:26 09/20/24 19:45 Temperature 98.2 F Pulse Rate 92 Respiratory Rate 18 Blood Pressure 145/81 H Pulse Oximetry 100 100 Oxygen Delivery Room Air Room Air 09/20/24 20:00 09/20/24 22:22 09/21/24 00:58 Temperature 98.8 F 97.1 F L Pulse Rate 102 H 106 H Respiratory Rate 16 20 Blood Pressure 171/95 H 161/80 H Pulse Oximetry 100 100 Oxygen Delivery Room Air 09/21/24 02:17 09/21/24 06:38 Temperature 98.2 F Pulse Rate 102 H 92 Respiratory Rate 18 16 Blood Pressure 153/73 H 141/79 H Pulse Oximetry 96 100 Oxygen Delivery Intake/Output Intake/Output: Intake & Output 09/18/24 09/19/24 09/20/24 09/21/24 23:59 23:59 23:59 23:59 Intake Total 3470 3578 2730 890 Output Total 1400 3750 3445 1800 Balance 6900 -172 -715 -910 Meds/Results Medications: Active Medications Generic Name Dose Route Start Last Admin Trade Name Freq PRN Reason Stop Dose Admin Acetaminophen 1,000 mg 09/17/24 19:00 Acetaminophen 500 Mg Tablet PO Q6H PRN Mild Pain (1-3) or Fever Hydrocodone Bitart/Acetaminophen 1 tab 09/17/24 19:00 09/20/24 17:33 Hydrocodone/Acetaminophen (*Crx) 5-325 Mg Tablet PO 1 tab Q4H PRN Administration Pain Rated 4-6 Amlodipine Besylate 5 mg 09/18/24 09:00 09/21/24 07:50 Amlodipine Besylate 5 Mg Tablet BY MOUTH 5 mg DAILY YUKO Administration Collagenase 1 applic 09/21/24 09:00 Collagenase Oint 30 Gm Tube TOPICAL QAM YUKO Dextrose 12.5 gm 09/17/24 04:53 Dextrose 50% 25 Gm/50 Ml Syringe IV PUSH PRN PRN Hypoglycemia Protocol Empagliflozin 25 mg 09/18/24 09:00 09/21/24 07:56 Empagliflozin 25 Mg Tablet PO 25 mg DAILY YUKO Administration Enoxaparin Sodium 40 mg 09/18/24 09:00 09/21/24 09:31 Enoxaparin 40 Mg/0.4 Ml Syringe SUB-Q 40 mg DAILY YUKO Administration Fluconazole 400 mg 09/20/24 09:00 09/21/24 07:50 Fluconazole 100 Mg Tablet PO 400 mg QAM YUKO Administration Gabapentin 300 mg 09/17/24 21:00 09/20/24 21:00 Gabapentin 300 Mg Capsule PO 300 mg QHS YUKO Administration Glipizide 2.5 mg 09/18/24 09:00 09/21/24 07:50 Glipizide Xl 2.5 Mg Tab.Er.24 PO 2.5 mg DAILY YUKO Administration Glucagon 1 mg 09/17/24 04:53 Glucagon For Inj 1 Mg Vial IM PRN PRN Hypoglycemia Protocol Glucose 15 gm 09/17/24 04:53 Glucose Oral Gel 15 Gm Of Glucse In 37.5 Gm Tube PO PRN PRN Hypoglycemia Protocol Hydralazine HCl 10 mg 09/17/24 22:25 09/21/24 01:07 Hydralazine 10 Mg Tablet PO 10 mg QID PRN Administration Hypertensive Emergency Ampicillin Sodium/Sulbactam Sodium 3 gm in 100 mls @ 200 mls/hr 09/20/24 08:00 09/21/24 07:49 Unasyn 3 Gm/Ns 100 Ml IVPB 200 mls/hr Q6H YUKO Administration Clindamycin Phosphate 600 mg in 50 mls @ 100 mls/hr 09/20/24 11:00 09/21/24 06:51 Clindamycin 600 Mg/D5w 50 Ml IVPB 100 mls/hr Q8H YUKO Administration Vancomycin HCl 1,750 mg in 500 mls @ 150 mls/hr 09/20/24 09:00 09/21/24 09:31 Vancomycin 1,750 Mg/Ns 500 Ml IVPB 175 mls/hr Q8H YUKO Administration Insulin Aspart 2 - 5 units 09/20/24 08:00 09/21/24 12:01 Insulin Aspart (*Bkc) 100 Units/Ml SUB-Q Not Given TIDWM [facility] Protocol Insulin Glargine 10 units 09/17/24 21:00 09/20/24 21:01 Insulin Glargine (*Bkc) 100 Units/Ml SUB-Q Not Given QHS [facility] Lisinopril 20 mg 09/18/24 09:00 09/21/24 07:51 Lisinopril 20 Mg Tablet PO 20 mg DAILY [facility] Administration Morphine Sulfate 4 mg 09/17/24 19:00 Morphine Sulfate (*Crx) 4 Mg/Ml Inj IV PUSH Q4H PRN Pain Rated 7-10 IF NPO Multivitamins Therapeutic 1 tablet 09/18/24 09:00 09/21/24 07:50 Multivitamins Therapeutic Tab (*Bkc) PO 1 tablet DAILY [facility] Administration Ondansetron HCl 4 mg 09/17/24 04:53 Ondansetron Inj 4 Mg/2 Ml Vial IV PUSH Q4H PRN Nausea Oxycodone HCl 5 mg 09/17/24 19:00 09/21/24 12:12 Oxycodone Hcl (*Crx) 5 Mg Tab Ir PO 5 mg Q4H PRN Administration Pain Rated 7-10 Potassium Chloride 40 meq 09/17/24 17:00 09/21/24 09:33 Potassium Chloride 20 Meq Packet (For Liquid) PO Not Given BID YUKO Silver Nitrate 10 each 09/21/24 09:59 Silver Nitrate (*Sp) Stick TOPICAL PRN PRN Bleeding Zinc Sulfate 220 mg 09/18/24 09:00 09/21/24 07:50 Zinc Sulfate 220 Mg Capsule PO 220 mg DAILY YUKO Administration Radiology Results: ITS Impressions Foot CT 09/17/24 06:42 IMPRESSION: Extensive soft tissue gas and fluid/edema predominantly the dorsal aspect of the forefoot, especially from the region of the fourth interspace extending proximally to the level of the proximal third metatarsal shaft. Findings raise suspicion for soft tissue gas forming infection/necrotizing fasciitis with associated phlegmon and developing irregular abscess in the dorsal aspect of the forefoot. Additional possible wound or ulcer at the fifth MTP joint region at the plantar aspect of the foot. No CT evidence for osteomyelitis. Venous Doppler Study 09/17/24 13:20 IMPRESSION: 1: No lower extremity deep venous thrombosis. Labs Labs: Laboratory Results - last 24 hr 09/20/24 09/20/24 09/21/24 16:52 21:15 07:38 WBC RBC Hgb Hct MCV MCH MCHC RDW Plt Count MPV Sodium Potassium Chloride Carbon Dioxide Anion Gap BUN Creatinine Estim Creat Clear Calc Estimated GFR Glucose POC Capillary Glucose 75 129 H 113 H Calcium Magnesium Vancomycin Trough 09/21/24 09/21/24 09/21/24 08:34 10:03 11:21 WBC 12.5 H RBC 4.33 L Hgb 11.8 L Hct 37.6 L MCV 86.8 MCH 27.3 MCHC 31.4 L RDW 13.9 Plt Count 441 H MPV 9.6 Sodium 137 Potassium 4.1 Chloride 105 Carbon Dioxide 23 Anion Gap 9 BUN 10 Creatinine 0.76 Estim Creat Clear Calc 131 Estimated GFR > 60 Glucose 108 POC Capillary Glucose 132 H Calcium 8.3 L Magnesium 2.1 Vancomycin Trough 28.4 H
[2024-09-21 14:00] VITALS: BP 160/86; PULSE 99; RESP 18; TEMP 36.4; O2SAT 100
--- NOTE | 2024-09-21 14:01 | PCPTNOTE ---
Attempted to see patient for PT, however patient declined. Patient reported he worked with OT after lunch and R lower leg was in too much pain.
--- NOTE | 2024-09-21 14:29 | P.PNIM_ITS ---
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 (2) Morbid obesity with BMI of 40.0-44.9, adult: Code(s): E66.01 - Morbid (severe) obesity due to excess calories; Z68.41 - Body mass index [BMI] 40.0-44.9, adult Status: Acute Assessment and Plan: weight loss adviced (3) Hypokalemia: Code(s): E87.6 - Hypokalemia Status: Acute Assessment and Plan: watch potassium levels abd replace accoirdingly (4) Open wound of plantar aspect of right foot: Code(s): S91.301A - Unspecified open wound, right foot, initial encounter Status: Acute Assessment and Plan: pt going to go for I and D today under general surgery continue npo with D51/2 NS can start diet DM after procedure and DC fluids ct shows necrotitis fascitis surgery decided on i and d (5) Infected puncture wound of plantar aspect of foot: Code(s): S91.339A - Puncture wound without foreign body, unspecified foot, initial encounter; L08.9 - Local infection of the skin and subcutaneous tissue, unspecified Status: Acute Assessment and Plan: likely due to putting extra weight on R side continue iv vancomycin and iv zosyn and cephalexin await wound cultures post procedure follow bc from yesterday (6) Essential hypertension: Code(s): I10 - Essential (primary) hypertension Status: Acute Assessment and Plan: watch Blood pressure continue lisinopril and norvasc add oral hydralazine prn high bps Plan patient presented with open wound of planter aspect of right foot wound, most likely due to diabetes, was found to have necrotizing soft tissue, and had I&D, with debridement on 09/17, CT scan of the foot did not show any OM, patient white counts are improving 12.5 compared to 29.5 upon arrival, patient wound is growing Staph aureus, strep,and Prevotella bivia, repeat foot culture growing same organisms, and being treated with Ampicillin, Clindamycin and vancomycin will follow of blood and wound culture, seen by surgery service today wound vac dressing was changed today, wound is healing recommendation to IV abx, will monitor couple more days and possibly discharge patient on TuesdaySeptember 24 on oral abx. DVT prop lovenox code full code Subjective Date/time seen: 09/21/24 14:29 Interval history: Chief Complaint: wound on R foot H&P-Narrative: 49 year old male PMH of type 2 dm, obesity and htn. 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, often finds it hard to look after his diabetes patient presented with open wound of planter aspect of right foot wound, most likely due to diabetes, was found to have necrotizing soft tissue, and had I&D, with debridement on 09/17, CT scan of the foot did not show any OM, patient white counts are improving 12.5 compared to 29.5 upon arrival, patient wound is growing Staph aureus, strep,and Prevotella bivia, repeat foot culture growing same organisms, and being treated with Ampicillin, Clindamycin and vancomycin will follow of blood and wound culture, seen by surgery service today wound vac dressing was changed today, wound is healing recommendation to IV abx, will monitor couple more days and possibly discharge patient on TuesdaySeptember 24 on oral abx. Review of Systems Review of Systems: foot wound no other specific compliants all 12 systems reviewed and are negative apart from HPI Exam Narrative: Patient is comfortable, NAD HEENT: eyes are clear and none icteric LUNGS:CTA HEART: RR S1S2 ABD: BS+, Soft and nontender Lower extremities: left BKA, right leg with dressing. SKIN: nonjaundiced Neuro: grossly intact. Objective Data Vital Signs Vital Signs: Vital Signs - 24 hr 09/20/24 15:26 09/20/24 19:45 09/20/24 20:00 Temperature Pulse Rate Respiratory Rate Blood Pressure Pulse Oximetry 100 Oxygen Delivery Room Air Room Air Room Air 09/20/24 22:22 09/21/24 00:58 09/21/24 02:17 Temperature 37.1 C 36.2 C L Pulse Rate 102 H 106 H 102 H Respiratory Rate 16 20 18 Blood Pressure 171/95 H 161/80 H 153/73 H Pulse Oximetry 100 100 96 Oxygen Delivery 09/21/24 06:38 Temperature 36.8 C Pulse Rate 92 Respiratory Rate 16 Blood Pressure 141/79 H Pulse Oximetry 100 Oxygen Delivery Intake/Output Intake/Output: Intake & Output 09/18/24 09/19/24 09/20/24 09/21/24 23:59 23:59 23:59 23:59 Intake Total 3470 3575 2730 940 Output Total 1400 3750 3445 1800 Balance 2070 -172 -715 -860 Meds/Results Medications: Active Medications Generic Name Dose Route Start Last Admin Trade Name Freq PRN Reason Stop Dose Admin Acetaminophen 1,000 mg 09/17/24 19:00 Acetaminophen 500 Mg Tablet PO Q6H PRN Mild Pain (1-3) or Fever Hydrocodone Bitart/Acetaminophen 1 tab 09/17/24 19:00 09/20/24 17:33 Hydrocodone/Acetaminophen (*Crx) 5-325 Mg Tablet PO 1 tab Q4H PRN Administration Pain Rated 4-6 Amlodipine Besylate 5 mg 09/18/24 09:00 09/21/24 07:50 Amlodipine Besylate 5 Mg Tablet BY MOUTH 5 mg DAILY YUKO Administration Collagenase 1 applic 09/21/24 09:00 Collagenase Oint 30 Gm Tube TOPICAL QAM YUKO Dextrose 12.5 gm 09/17/24 04:53 Dextrose 50% 25 Gm/50 Ml Syringe IV PUSH PRN PRN Hypoglycemia Protocol Empagliflozin 25 mg 09/18/24 09:00 09/21/24 07:56 Empagliflozin 25 Mg Tablet PO 25 mg DAILY YUKO Administration Enoxaparin Sodium 40 mg 09/18/24 09:00 09/21/24 09:31 Enoxaparin 40 Mg/0.4 Ml Syringe SUB-Q 40 mg DAILY YUKO Administration Fluconazole 400 mg 09/20/24 09:00 09/21/24 07:50 Fluconazole 100 Mg Tablet PO 400 mg QAM YUKO Administration Gabapentin 300 mg 09/17/24 21:00 09/20/24 21:00 Gabapentin 300 Mg Capsule PO 300 mg QHS YUKO Administration Glipizide 2.5 mg 09/18/24 09:00 09/21/24 07:50 Glipizide Xl 2.5 Mg Tab.Er.24 PO 2.5 mg DAILY YUKO Administration Glucagon 1 mg 09/17/24 04:53 Glucagon For Inj 1 Mg Vial IM PRN PRN Hypoglycemia Protocol Glucose 15 gm 09/17/24 04:53 Glucose Oral Gel 15 Gm Of Glucse In 37.5 Gm Tube PO PRN PRN Hypoglycemia Protocol Hydralazine HCl 10 mg 09/17/24 22:25 09/21/24 01:07 Hydralazine 10 Mg Tablet PO 10 mg QID PRN Administration Hypertensive Emergency Ampicillin Sodium/Sulbactam Sodium 3 gm in 100 mls @ 200 mls/hr 09/20/24 08:00 09/21/24 07:49 Unasyn 3 Gm/Ns 100 Ml IVPB 200 mls/hr Q6H YUKO Administration Clindamycin Phosphate 600 mg in 50 mls @ 100 mls/hr 09/20/24 11:00 09/21/24 13:11 Clindamycin 600 Mg/D5w 50 Ml IVPB 100 mls/hr Q8H YUKO Administration Vancomycin HCl 1,750 mg in 500 mls @ 150 mls/hr 09/20/24 09:00 09/21/24 09:31 Vancomycin 1,750 Mg/Ns 500 Ml IVPB 175 mls/hr Q8H YUKO Administration Insulin Aspart 2 - 5 units 09/20/24 08:00 09/21/24 12:01 Insulin Aspart (*Bkc) 100 Units/Ml SUB-Q Not Given [facility] Protocol Insulin Glargine 10 units 09/17/24 21:00 09/20/24 21:01 Insulin Glargine (*Bkc) 100 Units/Ml SUB-Q Not Given [facility] Lisinopril 20 mg 09/18/24 09:00 09/21/24 07:51 Lisinopril 20 Mg Tablet PO 20 mg DAILY YUKO Administration Morphine Sulfate 4 mg 09/17/24 19:00 Morphine Sulfate (*Crx) 4 Mg/Ml Inj IV PUSH Q4H PRN Pain Rated 7-10 IF NPO Multivitamins Therapeutic 1 tablet 09/18/24 09:00 09/21/24 07:50 Multivitamins Therapeutic Tab (*Bkc) PO 1 tablet DAILY YUKO Administration Ondansetron HCl 4 mg 09/17/24 04:53 Ondansetron Inj 4 Mg/2 Ml Vial IV PUSH Q4H PRN Nausea Oxycodone HCl 5 mg 09/17/24 19:00 09/21/24 12:12 Oxycodone Hcl (*Crx) 5 Mg Tab Ir PO 5 mg Q4H PRN Administration Pain Rated 7-10 Potassium Chloride 40 meq 09/17/24 17:00 09/21/24 09:33 Potassium Chloride 20 Meq Packet (For Liquid) PO Not Given BID YUKO Silver Nitrate 10 each 09/21/24 09:59 Silver Nitrate (*Sp) Stick TOPICAL PRN PRN Bleeding Zinc Sulfate 220 mg 09/18/24 09:00 09/21/24 07:50 Zinc Sulfate 220 Mg Capsule PO 220 mg DAILY YUKO Administration Radiology Results: ITS Impressions Foot CT 09/17/24 06:42 IMPRESSION: Extensive soft tissue gas and fluid/edema predominantly the dorsal aspect of the forefoot, especially from the region of the fourth interspace extending proximally to the level of the proximal third metatarsal shaft. Findings raise suspicion for soft tissue gas forming infection/necrotizing fasciitis with associated phlegmon and developing irregular abscess in the dorsal aspect of the forefoot. Additional possible wound or ulcer at the fifth MTP joint region at the plantar aspect of the foot. No CT evidence for osteomyelitis. Venous Doppler Study 09/17/24 13:20 IMPRESSION: 1: No lower extremity deep venous thrombosis. Labs Labs: Laboratory Results - last 24 hr 09/20/24 09/20/24 09/21/24 16:52 21:15 07:38 WBC RBC Hgb Hct MCV MCH MCHC RDW Plt Count MPV Sodium Potassium Chloride Carbon Dioxide Anion Gap BUN Creatinine Estim Creat Clear Calc Estimated GFR Glucose POC Capillary Glucose 75 129 H 113 H Calcium Magnesium Vancomycin Trough 09/21/24 09/21/24 09/21/24 08:34 10:03 11:21 WBC 12.5 H RBC 4.33 L Hgb 11.8 L Hct 37.6 L MCV 86.8 MCH 27.3 MCHC 31.4 L RDW 13.9 Plt Count 441 H MPV 9.6 Sodium 137 Potassium 4.1 Chloride 105 Carbon Dioxide 23 Anion Gap 9 BUN 10 Creatinine 0.76 Estim Creat Clear Calc 131 Estimated GFR > 60 Glucose 108 POC Capillary Glucose 132 H Calcium 8.3 L Magnesium 2.1 Vancomycin Trough 28.4 H
[2024-09-21] MEDS: LIDOCAINE 1% PF INJ 5 ML VIAL INFILTRATE (14:45)
[2024-09-21 17:12] LABS: Glucose Point of Care 117 mg/dl (65-105)
[2024-09-21 17:15] VITALS: BMI 38.9
[2024-09-21] MEDS: COLLAGENASE OINT 30 GM TUBE 1 APPLIC TOPICAL (17:38)
[2024-09-21 19:26] VITALS: PULSE 78; RESP 20; O2SAT 95
[2024-09-21] MEDS: GABAPENTIN 300 MG CAPSULE PO (20:20)
[2024-09-21] MEDS: HYDROcodone/acetaminophen (*CRX) 5-325 MG TABLET 1 TAB PO (21:26)
[2024-09-21 21:48] VITALS: BP 144/83; PULSE 101; RESP 18; TEMP 35.9; O2SAT 97
[2024-09-21] MEDS: VANCOMYCIN 1,250 MG/NS 250 ML 1,250 MG/250 ML BAG 166.67 MG IVPB (22:27)
[2024-09-21] MEDS: CENTRAL LINE FLUSH 10 ML IV PUSH (22:33)
[2024-09-22] MEDS: oxyCODONE HCL (*CRX) 5 MG TAB IR PO ×4 (00:14→22:23)
[2024-09-22] MEDS: AMPICILLIN SULB 3 GM/NS 100 ML 3 GM/100 ML VIAL IVPB ×4 (02:31→21:40)
[2024-09-22] MEDS: CLINDAMYCIN 600 MG/D5W 50 ML 600 MG/50 ML PIGGYBACK 100 MG IVPB ×3 (03:23→21:06)
[2024-09-22] MEDS: HYDROcodone/acetaminophen (*CRX) 5-325 MG TABLET 1 TAB PO ×3 (03:24→20:59)
[2024-09-22 06:00] VITALS: BP 139/85; PULSE 83; RESP 18; TEMP 35.8; O2SAT 100
[2024-09-22 06:02] LABS: Glucose Point of Care 87 mg/dl (65-105)
[2024-09-22] MEDS: CENTRAL LINE FLUSH 10 ML IV PUSH ×3 (06:13→22:08)
[2024-09-22] MEDS: VANCOMYCIN 1,250 MG/NS 250 ML 1,250 MG/250 ML BAG 166.67 MG IVPB ×3 (06:13→22:23)
[2024-09-22 06:23] LABS: Hematocrit 35.8 % (42.0-52.0); Hemoglobin 11.3 g/dL (14.0-18.0); Mean Corpuscular HGB Conc 31.6 g/dl (32-36); Mean Corpuscular Hemoglobin 27.3 pg (26-34); Mean Corpuscular Volume 86.5 fl (80-100); Mean Platelet Volume 9.5 fl (7.4-10.4); Platelet Count Result 495 k/mm3 (150-375); Red Blood Count 4.14 M/mm3 (4.6-6.20); Red Cell Distribution Width 13.9 % (11.5-14.5); White Blood Count 12.8 K/mm3 (4.5-10.0)
[2024-09-22 06:28] LABS: Glucose Point of Care 156 mg/dl (65-105)
[2024-09-22 07:03] LABS: Anion Gap 8 mmol/L (4-12); Blood Urea Nitrogen 11 mg/dL (9-20); Calcium 8.7 mg/dL (8.4-10.2); Carbon Dioxide 28 mmol/L (22-30); Chloride 104 mmol/L (98-107); Estimated CRCL calculation 121 ml/min; Estimated Glomerular Filt Rate > 60; Glucose 85 mg/dL (65-110); Magnesium 2.1 mg/dL (1.6-2.3); Potassium 4.3 mmol/L (3.4-5.0); Sodium 140 mmol/L (137-145)
[2024-09-22 08:13] LABS: Glucose Point of Care 97 mg/dl (65-105)
[2024-09-22] MEDS: MULTIVITAMINS THERAPEUTIC TAB (*BKC) 1 TABLET PO (09:20)
[2024-09-22] MEDS: EMPAGLIFLOZIN 25 MG TABLET PO (09:20)
[2024-09-22] MEDS: ENOXAPARIN 40 MG/0.4 ML SYRINGE SUB-Q (09:20)
[2024-09-22] MEDS: ZINC SULFATE 220 MG CAPSULE PO (09:20)
[2024-09-22] MEDS: lisinopriL 20 MG TABLET PO (09:20)
[2024-09-22] MEDS: COLLAGENASE OINT 30 GM TUBE 1 APPLIC TOPICAL (09:20)
[2024-09-22] MEDS: glipiZIDE XL 2.5 MG TAB.ER.24 PO (09:20)
[2024-09-22] MEDS: FLUCONAZOLE 100 MG TABLET 400 MG PO (09:20)
[2024-09-22] MEDS: amLODIPine BESYLATE 5 MG TABLET BY MOUTH (09:20)
[2024-09-22 12:08] LABS: Glucose Point of Care 143 mg/dl (65-105)
--- NOTE | 2024-09-22 13:29 | P.PNIM_ITS ---
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 (2) Morbid obesity with BMI of 40.0-44.9, adult: Code(s): E66.01 - Morbid (severe) obesity due to excess calories; Z68.41 - Body mass index [BMI] 40.0-44.9, adult Status: Acute Assessment and Plan: weight loss adviced (3) Hypokalemia: Code(s): E87.6 - Hypokalemia Status: Acute Assessment and Plan: watch potassium levels abd replace accoirdingly (4) Open wound of plantar aspect of right foot: Code(s): S91.301A - Unspecified open wound, right foot, initial encounter Status: Acute Assessment and Plan: pt going to go for I and D today under general surgery continue npo with D51/2 NS can start diet DM after procedure and DC fluids ct shows necrotitis fascitis surgery decided on i and d (5) Infected puncture wound of plantar aspect of foot: Code(s): S91.339A - Puncture wound without foreign body, unspecified foot, initial encounter; L08.9 - Local infection of the skin and subcutaneous tissue, unspecified Status: Acute Assessment and Plan: likely due to putting extra weight on R side continue iv vancomycin and iv zosyn and cephalexin await wound cultures post procedure follow bc from yesterday (6) Essential hypertension: Code(s): I10 - Essential (primary) hypertension Status: Acute Assessment and Plan: watch Blood pressure continue lisinopril and norvasc add oral hydralazine prn high bps Plan patient presented with open wound of planter aspect of right foot wound, most likely due to diabetes, was found to have necrotizing soft tissue, and had I&D, with debridement on 09/17, CT scan of the foot did not show any OM, patient white counts are improving 12.8 compared to 29.5 upon arrival, patient wound is growing Staph aureus, strep,and Prevotella bivia, repeat foot culture growing same organisms, and being treated with Ampicillin, Clindamycin and vancomycin will follow of blood and wound culture, seen by surgery service on 09/21 wound vac dressing was changed, wound is healing recommendation to IV abx, will monitor couple more days and possibly discharge patient on TuesdaySeptember 24 on oral abx. DVT prop lovenox code full code Subjective Date/time seen: 09/22/24 13:29 Interval history: Chief Complaint: wound on R foot H&P-Narrative: 49 year old male PMH of type 2 dm, obesity and htn. 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, often finds it hard to look after his diabetes patient presented with open wound of planter aspect of right foot wound, most likely due to diabetes, was found to have necrotizing soft tissue, and had I&D, with debridement on 09/17, CT scan of the foot did not show any OM, patient white counts are improving 12.8 compared to 29.5 upon arrival, patient wound is growing Staph aureus, strep,and Prevotella bivia, repeat foot culture growing same organisms, and being treated with Ampicillin, Clindamycin and vancomycin will follow of blood and wound culture, seen by surgery service on 09/21 wound vac dressing was changed, wound is healing recommendation to IV abx, will monitor couple more days and possibly discharge patient on TuesdaySeptember 24 on oral abx. Review of Systems Review of Systems: foot wound no other specific compliants all 12 systems reviewed and are negative apart from HPI Exam Narrative: Patient is comfortable, NAD HEENT: eyes are clear and none icteric LUNGS:CTA HEART: RR S1S2 ABD: BS+, Soft and nontender Lower extremities: left BKA, right leg with dressing. SKIN: nonjaundiced Neuro: grossly intact. Objective Data Vital Signs Vital Signs: Vital Signs - 24 hr 09/21/24 14:00 09/21/24 19:26 09/21/24 21:48 Temperature 36.4 C L 35.9 C L Pulse Rate 99 78 101 H Respiratory Rate 18 20 18 Blood Pressure 160/86 H 144/83 H Pulse Oximetry 100 95 97 Oxygen Delivery Room Air 09/22/24 06:00 Temperature 35.8 C L Pulse Rate 83 Respiratory Rate 18 Blood Pressure 139/85 Pulse Oximetry 100 Oxygen Delivery Intake/Output Intake/Output: Intake & Output 09/19/24 09/20/24 09/21/24 09/22/24 23:59 23:59 23:59 23:59 Intake Total 3575 2730 2310 700 Output Total 3750 6165 9010 1150 Balance -172 -715 -940 -450 Meds/Results Medications: Active Medications Generic Name Dose Route Start Last Admin Trade Name Freq PRN Reason Stop Dose Admin Acetaminophen 1,000 mg 09/17/24 19:00 Acetaminophen 500 Mg Tablet PO Q6H PRN Mild Pain (1-3) or Fever Hydrocodone Bitart/Acetaminophen 1 tab 09/17/24 19:00 09/22/24 10:41 Hydrocodone/Acetaminophen (*Crx) 5-325 Mg Tablet PO 1 tab Q4H PRN Administration Pain Rated 4-6 Amlodipine Besylate 5 mg 09/18/24 09:00 09/22/24 09:20 Amlodipine Besylate 5 Mg Tablet BY MOUTH 5 mg DAILY YUKO Administration Collagenase 1 applic 09/21/24 09:00 09/22/24 09:20 Collagenase Oint 30 Gm Tube TOPICAL 1 applic QAM YUKO Administration Dextrose 12.5 gm 09/17/24 04:53 Dextrose 50% 25 Gm/50 Ml Syringe IV PUSH PRN PRN Hypoglycemia Protocol Empagliflozin 25 mg 09/18/24 09:00 09/22/24 09:20 Empagliflozin 25 Mg Tablet PO 25 mg DAILY YUKO Administration Enoxaparin Sodium 40 mg 09/18/24 09:00 09/22/24 09:20 Enoxaparin 40 Mg/0.4 Ml Syringe SUB-Q 40 mg DAILY YUKO Administration Fluconazole 400 mg 09/20/24 09:00 09/22/24 09:20 Fluconazole 100 Mg Tablet PO 400 mg QAM YUKO Administration Gabapentin 300 mg 09/17/24 21:00 09/21/24 20:20 Gabapentin 300 Mg Capsule PO 300 mg QHS YUKO Administration Glipizide 2.5 mg 09/18/24 09:00 09/22/24 09:20 Glipizide Xl 2.5 Mg Tab.Er.24 PO 2.5 mg DAILY YUKO Administration Glucagon 1 mg 09/17/24 04:53 Glucagon For Inj 1 Mg Vial IM PRN PRN Hypoglycemia Protocol Glucose 15 gm 09/17/24 04:53 Glucose Oral Gel 15 Gm Of Glucse In 37.5 Gm Tube PO PRN PRN Hypoglycemia Protocol Hydralazine HCl 10 mg 09/17/24 22:25 09/21/24 01:07 Hydralazine 10 Mg Tablet PO 10 mg QID PRN Administration Hypertensive Emergency Ampicillin Sodium/Sulbactam Sodium 3 gm in 100 mls @ 200 mls/hr 09/20/24 08:00 09/22/24 08:30 Unasyn 3 Gm/Ns 100 Ml IVPB 200 mls/hr Q6H YUKO Administration Clindamycin Phosphate 600 mg in 50 mls @ 100 mls/hr 09/20/24 11:00 09/22/24 10:40 Clindamycin 600 Mg/D5w 50 Ml IVPB 100 mls/hr Q8H YUKO Administration Vancomycin HCl 1,250 mg in 250 mls @ 166.667 mls/hr 09/21/24 22:00 09/22/24 06:13 Vancomycin 1,250 Mg/Ns 250 Ml IVPB 166.67 mls/hr Q8H YUKO Administration Insulin Aspart 2 - 5 units 09/20/24 08:00 09/22/24 12:15 Insulin Aspart (*Bkc) 100 Units/Ml SUB-Q Not Given [facility] Protocol Insulin Glargine 10 units 09/17/24 21:00 09/21/24 21:40 Insulin Glargine (*Bkc) 100 Units/Ml SUB-Q Not Given QHS [facility] Lisinopril 20 mg 09/18/24 09:00 09/22/24 09:20 Lisinopril 20 Mg Tablet PO 20 mg DAILY YUKO Administration Morphine Sulfate 4 mg 09/17/24 19:00 Morphine Sulfate (*Crx) 4 Mg/Ml Inj IV PUSH Q4H PRN Pain Rated 7-10 IF NPO Multivitamins Therapeutic 1 tablet 09/18/24 09:00 09/22/24 09:20 Multivitamins Therapeutic Tab (*Bkc) PO 1 tablet DAILY YUKO Administration Ondansetron HCl 4 mg 09/17/24 04:53 Ondansetron Inj 4 Mg/2 Ml Vial IV PUSH Q4H PRN Nausea Oxycodone HCl 5 mg 09/17/24 19:00 09/22/24 07:07 Oxycodone Hcl (*Crx) 5 Mg Tab Ir PO 5 mg Q4H PRN Administration Pain Rated 7-10 Potassium Chloride 40 meq 09/17/24 17:00 09/22/24 09:20 Potassium Chloride 20 Meq Packet (For Liquid) PO Not Given BID YUKO Silver Nitrate 10 each 09/21/24 09:59 Silver Nitrate (*Sp) Stick TOPICAL PRN PRN Bleeding Sodium Chloride 10 ml 09/21/24 22:00 09/22/24 06:13 Central Line Flush IV PUSH 10 ml Q8HR YUKO Administration Sodium Chloride 10 ml 09/21/24 15:14 Central Line Flush IV PUSH PRN PRN with TPN bag changes Sodium Chloride 20 ml 09/21/24 15:14 Central Line Flush IV PUSH PRN PRN after blood draws Zinc Sulfate 220 mg 09/18/24 09:00 09/22/24 09:20 Zinc Sulfate 220 Mg Capsule PO 220 mg DAILY YUKO Administration Radiology Results: ITS Impressions Foot CT 09/17/24 06:42 IMPRESSION: Extensive soft tissue gas and fluid/edema predominantly the dorsal aspect of the forefoot, especially from the region of the fourth interspace extending proximally to the level of the proximal third metatarsal shaft. Findings raise suspicion for soft tissue gas forming infection/necrotizing fasciitis with associated phlegmon and developing irregular abscess in the dorsal aspect of the forefoot. Additional possible wound or ulcer at the fifth MTP joint region at the plantar aspect of the foot. No CT evidence for osteomyelitis. Venous Doppler Study 09/17/24 13:20 IMPRESSION: 1: No lower extremity deep venous thrombosis. Chest X-Ray 09/21/24 15:25 Impression: 1: Mild interstitial edema. Labs Labs: Laboratory Results - last 24 hr 09/21/24 09/21/24 09/21/24 15:43 16:58 19:49 WBC RBC Hgb Hct MCV MCH MCHC RDW Plt Count MPV Sodium Potassium Chloride Carbon Dioxide Anion Gap BUN Creatinine Estim Creat Clear Calc Estimated GFR Glucose POC Capillary Glucose 117 H 156 H Calcium Magnesium Vancomycin Trough 25.0 H 09/22/24 09/22/2409/22/25 05:58 06:09 07:59 WBC 12.8 H RBC 4.14 L Hgb 11.3 L Hct 35.8 L MCV 86.5 MCH 27.3 MCHC 31.6 L RDW 13.9 Plt Count 495 H MPV 9.5 Sodium 140 Potassium 4.3 Chloride 104 Carbon Dioxide 28 Anion Gap 8 BUN 11 Creatinine 0.83 Estim Creat Clear Calc 121 Estimated GFR > 60 Glucose 85 POC Capillary Glucose 87 97 Calcium 8.7 Magnesium 2.1 Vancomycin Trough 09/22/24 11:55 WBC RBC Hgb Hct MCV MCH MCHC RDW Plt Count MPV Sodium Potassium Chloride Carbon Dioxide Anion Gap BUN Creatinine Estim Creat Clear Calc Estimated GFR Glucose POC Capillary Glucose 143 H Calcium Magnesium Vancomycin Trough
[2024-09-22 14:00] VITALS: BP 142/80; PULSE 85; RESP 16; TEMP 36.1; O2SAT 99
[2024-09-22 16:56] LABS: Glucose Point of Care 102 mg/dl (65-105)
[2024-09-22] MEDS: GABAPENTIN 300 MG CAPSULE PO (20:59)
[2024-09-22 21:39] LABS: Vancomycin Trough 19.3 ug/mL (10.0-20.0)
[2024-09-22 22:00] VITALS: BP 144/78; PULSE 108; RESP 18; TEMP 37.1; O2SAT 100
[2024-09-22 22:04] LABS: Glucose Point of Care 121 mg/dl (65-105)
[2024-09-23] MEDS: HYDROcodone/acetaminophen (*CRX) 5-325 MG TABLET 1 TAB PO ×4 (00:18→20:36)
[2024-09-23] MEDS: AMPICILLIN SULB 3 GM/NS 100 ML 3 GM/100 ML VIAL IVPB ×4 (02:19→20:35)
[2024-09-23] MEDS: oxyCODONE HCL (*CRX) 5 MG TAB IR PO ×4 (03:34→23:15)
[2024-09-23] MEDS: CLINDAMYCIN 600 MG/D5W 50 ML 600 MG/50 ML PIGGYBACK 100 MG IVPB ×3 (03:35→18:24)
[2024-09-23 06:00] VITALS: BP 143/71; PULSE 101; RESP 18; TEMP 36.6; O2SAT 100
[2024-09-23] MEDS: VANCOMYCIN 1,250 MG/NS 250 ML 1,250 MG/250 ML BAG 166.67 MG IVPB ×3 (06:33→20:36)
[2024-09-23] MEDS: CENTRAL LINE FLUSH 10 ML IV PUSH ×3 (06:39→20:36)
[2024-09-23 06:46] LABS: Hematocrit 35.3 % (42.0-52.0); Mean Corpuscular HGB Conc 31.2 g/dl (32-36); Mean Corpuscular Hemoglobin 27.3 pg (26-34); Mean Corpuscular Volume 87.6 fl (80-100); Mean Platelet Volume 9.1 fl (7.4-10.4); Platelet Count Result 517 k/mm3 (150-375); Red Blood Count 4.03 M/mm3 (4.6-6.20); Red Cell Distribution Width 13.9 % (11.5-14.5); White Blood Count 13.9 K/mm3 (4.5-10.0)
[2024-09-23 07:00] LABS: Anion Gap 7 mmol/L (4-12); Blood Urea Nitrogen 12 mg/dL (9-20); Calcium 8.5 mg/dL (8.4-10.2); Carbon Dioxide 27 mmol/L (22-30); Chloride 104 mmol/L (98-107); Estimated CRCL calculation 111 ml/min; Estimated Glomerular Filt Rate > 60; Glucose 112 mg/dL (65-110); Magnesium 2.1 mg/dL (1.6-2.3); Sodium 138 mmol/L (137-145)
[2024-09-23 07:47] LABS: Glucose Point of Care 133 mg/dl (65-105)
--- NOTE | 2024-09-23 09:12 | PCOTNOTE ---
Attempted to see pt for OT treatment this AM. Pt declined to participate in therapeutic tasks, self care tasks, and/or Strengthening. Pt states he completed his self care tasks last night in the bathroom and sat up in the chair for 4hrs yesterday. Pt states that his previous therapy is still fresh in his mind that he is very confident he can handle it. Pt declined having any questions or concerns at this time.
--- NOTE | 2024-09-23 09:50 | P.PNIM_ITS ---
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 (2) Morbid obesity with BMI of 40.0-44.9, adult: Code(s): E66.01 - Morbid (severe) obesity due to excess calories; Z68.41 - Body mass index [BMI] 40.0-44.9, adult Status: Acute Assessment and Plan: weight loss adviced (3) Hypokalemia: Code(s): E87.6 - Hypokalemia Status: Acute Assessment and Plan: watch potassium levels abd replace accoirdingly (4) Open wound of plantar aspect of right foot: Code(s): S91.301A - Unspecified open wound, right foot, initial encounter Status: Acute Assessment and Plan: pt going to go for I and D today under general surgery continue npo with D51/2 NS can start diet DM after procedure and DC fluids ct shows necrotitis fascitis surgery decided on i and d (5) Infected puncture wound of plantar aspect of foot: Code(s): S91.339A - Puncture wound without foreign body, unspecified foot, initial encounter; L08.9 - Local infection of the skin and subcutaneous tissue, unspecified Status: Acute Assessment and Plan: likely due to putting extra weight on R side continue iv vancomycin and iv zosyn and cephalexin await wound cultures post procedure follow bc from yesterday (6) Essential hypertension: Code(s): I10 - Essential (primary) hypertension Status: Acute Assessment and Plan: watch Blood pressure continue lisinopril and norvasc add oral hydralazine prn high bps Plan patient presented with open wound of planter aspect of right foot wound, most likely due to diabetes, was found to have necrotizing soft tissue, and had I&D, with debridement on 09/17, CT scan of the foot did not show any OM, patient white counts are improving 13.9 compared to 29.5 upon arrival, patient wound is growing Staph aureus, strep,and Prevotella bivia, repeat foot culture growing same organisms, and being treated with Ampicillin, Clindamycin and vancomycin will follow of blood and wound culture, seen by surgery service on 09/21 wound vac dressing was changed, wound is healing recommendation to IV abx, will monitor couple more days and possibly discharge patient on TuesdaySeptember 24 on oral abx. today patient has no new complaints. DVT prop lovenox code full code Subjective Date/time seen: 09/23/24 09:50 Interval history: Chief Complaint: wound on R foot H&P-Narrative: 49 year old male PMH of type 2 dm, obesity and htn. 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, often finds it hard to look after his diabetes patient presented with open wound of planter aspect of right foot wound, most likely due to diabetes, was found to have necrotizing soft tissue, and had I&D, with debridement on 09/17, CT scan of the foot did not show any OM, patient white counts are improving 13.9 compared to 29.5 upon arrival, patient wound is growing Staph aureus, strep,and Prevotella bivia, repeat foot culture growing same organisms, and being treated with Ampicillin, Clindamycin and vancomycin will follow of blood and wound culture, seen by surgery service on 09/21 wound vac dressing was changed, wound is healing recommendation to IV abx, will monitor couple more days and possibly discharge patient on TuesdaySeptember 24 on oral abx. today patient has no new complaints. Review of Systems Review of Systems: foot wound no other specific compliants all 12 systems reviewed and are negative apart from HPI Exam Narrative: Patient is comfortable, NAD HEENT: eyes are clear and none icteric LUNGS:CTA HEART: RR S1S2 ABD: BS+, Soft and nontender Lower extremities: left BKA, right leg with dressing. SKIN: nonjaundiced Neuro: grossly intact. Objective Data Vital Signs Vital Signs: Vital Signs - 24 hr 09/22/24 14:00 09/22/24 22:00 09/23/24 06:00 Temperature 36.1 C L 37.1 C 36.6 C Pulse Rate 85 108 H 101 H Respiratory Rate 16 18 18 Blood Pressure 142/80 H 144/78 H 143/71 H Pulse Oximetry 99 100 100 Oxygen Delivery 09/23/24 08:00 Temperature Pulse Rate Respiratory Rate Blood Pressure Pulse Oximetry Oxygen Delivery Room Air Intake/Output Intake/Output: Intake & Output 09/20/24 09/21/24 09/22/24 09/23/24 23:59 23:59 23:59 23:59 Intake Total 2730 2310 1970 950 Output Total 3445 4940 2039 900 Balance -595 -940 -1680 50 Meds/Results Medications: Active Medications Generic Name Dose Route Start Last Admin Trade Name Freq PRN Reason Stop Dose Admin Acetaminophen 1,000 mg 09/17/24 19:00 Acetaminophen 500 Mg Tablet PO Q6H PRN Mild Pain (1-3) or Fever Hydrocodone Bitart/Acetaminophen 1 tab 09/17/24 19:00 09/23/24 06:33 Hydrocodone/Acetaminophen (*Crx) 5-325 Mg Tablet PO 1 tab Q4H PRN Administration Pain Rated 4-6 Amlodipine Besylate 5 mg 09/18/24 09:00 09/22/24 09:20 Amlodipine Besylate 5 Mg Tablet BY MOUTH 5 mg DAILY YUKO Administration Collagenase 1 applic 09/21/24 09:00 09/22/24 09:20 Collagenase Oint 30 Gm Tube TOPICAL 1 applic QAM YUKO Administration Dextrose 12.5 gm 09/17/24 04:53 Dextrose 50% 25 Gm/50 Ml Syringe IV PUSH PRN PRN Hypoglycemia Protocol Empagliflozin 25 mg 09/18/24 09:00 09/22/24 09:20 Empagliflozin 25 Mg Tablet PO 25 mg DAILY YUKO Administration Enoxaparin Sodium 40 mg 09/18/24 09:00 09/22/24 09:20 Enoxaparin 40 Mg/0.4 Ml Syringe SUB-Q 40 mg DAILY YUKO Administration Fluconazole 400 mg 09/20/24 09:00 09/22/24 09:20 Fluconazole 100 Mg Tablet PO 400 mg QAM YUKO Administration Gabapentin 300 mg 09/17/24 21:00 09/22/24 20:59 Gabapentin 300 Mg Capsule PO 300 mg QHS YUKO Administration Glipizide 2.5 mg 09/18/24 09:00 09/22/24 09:20 Glipizide Xl 2.5 Mg Tab.Er.24 PO 2.5 mg DAILY YUKO Administration Glucagon 1 mg 09/17/24 04:53 Glucagon For Inj 1 Mg Vial IM PRN PRN Hypoglycemia Protocol Glucose 15 gm 09/17/24 04:53 Glucose Oral Gel 15 Gm Of Glucse In 37.5 Gm Tube PO PRN PRN Hypoglycemia Protocol Hydralazine HCl 10 mg 09/17/24 22:25 09/21/24 01:07 Hydralazine 10 Mg Tablet PO 10 mg QID PRN Administration Hypertensive Emergency Ampicillin Sodium/Sulbactam Sodium 3 gm in 100 mls @ 200 mls/hr 09/20/24 08:00 09/23/24 02:49 Unasyn 3 Gm/Ns 100 Ml IVPB Infused Q6H YUKO Infusion Clindamycin Phosphate 600 mg in 50 mls @ 100 mls/hr 09/20/24 11:00 09/23/24 04:39 Clindamycin 600 Mg/D5w 50 Ml IVPB Infused Q8H YUKO Infusion Vancomycin HCl 1,250 mg in 250 mls @ 166.667 mls/hr 09/21/24 22:00 09/23/24 08:03 Vancomycin 1,250 Mg/Ns 250 Ml IVPB Infused Q8H YUKO Infusion Insulin Aspart 2 - 5 units 09/20/24 08:00 09/23/24 07:56 Insulin Aspart (*Bkc) 100 Units/Ml SUB-Q Not Given TIDWM [facility] Protocol Lisinopril 20 mg 09/18/24 09:00 09/22/24 09:20 Lisinopril 20 Mg Tablet PO 20 mg DAILY YUKO Administration Morphine Sulfate 4 mg 09/17/24 19:00 Morphine Sulfate (*Crx) 4 Mg/Ml Inj IV PUSH Q4H PRN Pain Rated 7-10 IF NPO Multivitamins Therapeutic 1 tablet 09/18/24 09:00 09/22/24 09:20 Multivitamins Therapeutic Tab (*Bkc) PO 1 tablet DAILY YUKO Administration Ondansetron HCl 4 mg 09/17/24 04:53 Ondansetron Inj 4 Mg/2 Ml Vial IV PUSH Q4H PRN Nausea Oxycodone HCl 5 mg 09/17/24 19:00 09/23/24 03:34 Oxycodone Hcl (*Crx) 5 Mg Tab Ir PO 5 mg Q4H PRN Administration Pain Rated 7-10 Silver Nitrate 10 each 09/21/24 09:59 Silver Nitrate (*Sp) Stick TOPICAL PRN PRN Bleeding Sodium Chloride 10 ml 09/21/24 22:00 09/23/24 06:39 Central Line Flush IV PUSH 10 ml Q8HR YUKO Administration Sodium Chloride 10 ml 09/21/24 15:14 Central Line Flush IV PUSH PRN PRN with TPN bag changes Sodium Chloride 20 ml 09/21/24 15:14 Central Line Flush IV PUSH PRN PRN after blood draws Zinc Sulfate 220 mg 09/18/24 09:00 09/22/24 09:20 Zinc Sulfate 220 Mg Capsule PO 220 mg DAILY YUKO Administration Radiology Results: ITS Impressions Foot CT 09/17/24 06:42 IMPRESSION: Extensive soft tissue gas and fluid/edema predominantly the dorsal aspect of the forefoot, especially from the region of the fourth interspace extending proximally to the level of the proximal third metatarsal shaft. Findings raise suspicion for soft tissue gas forming infection/necrotizing fasciitis with associated phlegmon and developing irregular abscess in the dorsal aspect of the forefoot. Additional possible wound or ulcer at the fifth MTP joint region at the plantar aspect of the foot. No CT evidence for osteomyelitis. Venous Doppler Study 09/17/24 13:20 IMPRESSION: 1: No lower extremity deep venous thrombosis. Chest X-Ray 09/21/24 15:25 Impression: 1: Mild interstitial edema. Labs Labs: Laboratory Results - last 24 hr 09/22/24 09/22/24 09/22/24 11:55 16:51 21:06 WBC RBC Hgb Hct MCV MCH MCHC RDW Plt Count MPV Sodium Potassium Chloride Carbon Dioxide Anion Gap BUN Creatinine Estim Creat Clear Calc Estimated GFR Glucose POC Capillary Glucose 143 H 102 Calcium Magnesium Vancomycin Trough 19.3 09/22/24 09/23/24 09/23/24 21:19 06:32 07:43 WBC 13.9 H RBC 4.03 L Hgb 11.0 L Hct 35.3 L MCV 87.6 MCH 27.3 MCHC 31.2 L RDW 13.9 Plt Count 517 H MPV 9.1 Sodium 138 Potassium 4.0 Chloride 104 Carbon Dioxide 27 Anion Gap 7 BUN 12 Creatinine 0.91 Estim Creat Clear Calc 111 Estimated GFR > 60 Glucose 112 H POC Capillary Glucose 121 H 133 H Calcium 8.5 Magnesium 2.1 Vancomycin Trough
[2024-09-23] MEDS: amLODIPine BESYLATE 5 MG TABLET BY MOUTH (09:52)
[2024-09-23] MEDS: MULTIVITAMINS THERAPEUTIC TAB (*BKC) 1 TABLET PO (09:52)
[2024-09-23] MEDS: glipiZIDE XL 2.5 MG TAB.ER.24 PO (09:53)
[2024-09-23] MEDS: ZINC SULFATE 220 MG CAPSULE PO (09:53)
[2024-09-23] MEDS: EMPAGLIFLOZIN 25 MG TABLET PO (09:53)
[2024-09-23] MEDS: FLUCONAZOLE 100 MG TABLET 400 MG PO (09:53)
[2024-09-23] MEDS: ENOXAPARIN 40 MG/0.4 ML SYRINGE SUB-Q (09:54)
[2024-09-23] MEDS: lisinopriL 20 MG TABLET PO (09:54)
[2024-09-23 12:05] LABS: Glucose Point of Care 160 mg/dl (65-105)
[2024-09-23 13:35] LABS: Vancomycin Trough 18.2 ug/mL (10.0-20.0)
[2024-09-23 14:00] VITALS: BP 145/80; PULSE 87; RESP 16; TEMP 36.3; O2SAT 100
[2024-09-23 16:41] LABS: Glucose Point of Care 92 mg/dl (65-105)
[2024-09-23 20:19] LABS: Glucose Point of Care 119 mg/dl (65-105)
[2024-09-23] MEDS: GABAPENTIN 300 MG CAPSULE PO (20:36)
[2024-09-23 20:54] VITALS: O2SAT 100
[2024-09-23 22:00] VITALS: BP 157/86; PULSE 88; RESP 18; TEMP 35.8; O2SAT 100
[2024-09-24] MEDS: AMPICILLIN SULB 3 GM/NS 100 ML 3 GM/100 ML VIAL IVPB ×4 (02:15→20:47)
[2024-09-24] MEDS: CLINDAMYCIN 600 MG/D5W 50 ML 600 MG/50 ML PIGGYBACK 100 MG IVPB ×3 (02:20→18:13)
[2024-09-24] MEDS: HYDROcodone/acetaminophen (*CRX) 5-325 MG TABLET 1 TAB PO ×2 (04:22→18:18)
[2024-09-24 05:08] VITALS: BP 156/74; PULSE 88; RESP 16; TEMP 36.6; O2SAT 99
[2024-09-24 05:17] LABS: Hematocrit 36.2 % (42.0-52.0); Hemoglobin 11.2 g/dL (14.0-18.0); Mean Corpuscular HGB Conc 30.9 g/dl (32-36); Mean Corpuscular Hemoglobin 27.1 pg (26-34); Mean Corpuscular Volume 87.7 fl (80-100); Mean Platelet Volume 9.5 fl (7.4-10.4); Platelet Count Result 582 k/mm3 (150-375); Red Blood Count 4.13 M/mm3 (4.6-6.20); White Blood Count 11.1 K/mm3 (4.5-10.0)
[2024-09-24 05:35] LABS: Anion Gap 6 mmol/L (4-12); Blood Urea Nitrogen 11 mg/dL (9-20); Calcium 8.5 mg/dL (8.4-10.2); Carbon Dioxide 27 mmol/L (22-30); Chloride 105 mmol/L (98-107); Estimated CRCL calculation 114 ml/min; Estimated Glomerular Filt Rate > 60; Glucose 82 mg/dL (65-110); Magnesium 2.2 mg/dL (1.6-2.3); Sodium 138 mmol/L (137-145)
[2024-09-24] MEDS: CENTRAL LINE FLUSH 10 ML IV PUSH ×3 (06:16→20:47)
[2024-09-24] MEDS: VANCOMYCIN 1,250 MG/NS 250 ML 1,250 MG/250 ML BAG 166.67 MG IVPB ×2 (06:17→13:35)
[2024-09-24 08:20] LABS: Glucose Point of Care 84 mg/dl (65-105)
[2024-09-24] MEDS: MULTIVITAMINS THERAPEUTIC TAB (*BKC) 1 TABLET PO (08:31)
[2024-09-24] MEDS: amLODIPine BESYLATE 5 MG TABLET BY MOUTH (08:31)
[2024-09-24] MEDS: ZINC SULFATE 220 MG CAPSULE PO (08:31)
[2024-09-24] MEDS: oxyCODONE HCL (*CRX) 5 MG TAB IR PO ×3 (08:31→20:45)
[2024-09-24] MEDS: FLUCONAZOLE 100 MG TABLET 400 MG PO (08:31)
[2024-09-24] MEDS: lisinopriL 20 MG TABLET PO (08:31)
[2024-09-24] MEDS: EMPAGLIFLOZIN 25 MG TABLET PO (08:32)
[2024-09-24] MEDS: glipiZIDE XL 2.5 MG TAB.ER.24 PO (08:38)
[2024-09-24] MEDS: ENOXAPARIN 40 MG/0.4 ML SYRINGE SUB-Q (08:39)
--- NOTE | 2024-09-24 11:53 | PCOTNOTE ---
Attempted to see Patient for OT treatment session this session. Patient and his present, states they do not want OT services. Patient states he is Independent with his self care, toileting, transfers at this time. Patient states the only thing, I need assistance with is the carrying of the wound vac canister and have heard the one I could be discharged with is smaller and easier to transport. Patients states, since he has been here, she has not had to assist him in any other way. Patient verbalized he wants discharged from OT services.
[2024-09-24 11:54] LABS: Glucose Point of Care 142 mg/dl (65-105)
--- NOTE | 2024-09-24 13:13 | PCNWS ---
Weekly nutritional screen. Patient is tolerating current diabetic diet with adequate intake 100%. No weight loss reported. Pt educated last week on diabetic diet. No nutritional needs at this time.
[2024-09-24 13:57] VITALS: BP 163/84; PULSE 86; RESP 14; TEMP 35.9; O2SAT 100
[2024-09-24] MEDS: COLLAGENASE OINT 30 GM TUBE 1 APPLIC TOPICAL (14:51)
--- NOTE | 2024-09-24 15:51 | PM.PNGS ---
Progress Note: A&P Assessment and Plan (1) Open wound of plantar aspect of right foot: Code(s): S91.301A - Unspecified open wound, right foot, initial encounter Status: Acute Assessment and Plan: Wound vac dressing changed today. There are issues with the wound vac holding at the distal aspect of the wound and drainage is seeping up between the toes. There is moisture trapped under the drape of the wound vac dressing that is starting to create skin breakdown and maceration. We will put the wound Vac on hold for now and try switching to daily dressing changes with Santyl for continued enzymatic debridement. We will place gauze between the toes to try and dry up the skin. Nursing will educate his today on dressing changes and she will perform the dressing change tomorrow to ensure she is comfortable with his wound care. is set up and could continue to follow after discharge for dressing changes once weekly. If he continues to remain stable and his is comfortable with wound care, then we could consider discharging him on oral antibiotics tomorrow. Spoke with the ID pharmacist, who is recommending transition to Augmentin and Doxycycline. Will continue PICC line and IV antibiotics for today and reassess again tomorrow. Will schedule him to follow-up with Dr. Sims on in the wound clinic as an outpatient for wound check after discharge. Plan I have discussed the patient's case and plan of care with Dr. Sims. Subjective Subjective Date/Time Seen: 09/24/24 14:51 Patient reports: no new complaints and afebrile Interval history: No acute events over the weekend. Patient seen with Dr. Sims and wound care nurses for wound vac change. WBC count between 11-13k over the past 5 days. Exam Narrative: Right foot wound vac dressing removed. Plantar foot wound with 100% pink granulating tissue, no purulent drainage or necrotic tissue. Dorsal wound with majority pink tissue with some granulating tissue forming, some superficial slough noted in the wound bed. No purulent drainage or significant necrotic tissue. He has full ROM of his toes. The skin between the toes and at the base of the toes has drainage seeping up from the wound and sitting on the skin with some superficial maceration and an open superficial wound of the plantar 5th toe where the skin has peeled off. The wound bed is 100% pink. Overall redness and swelling continues to improve. Objective Data Vital Signs Vital Signs: Vital Signs - 24 hr 09/23/24 20:54 09/23/24 22:00 09/24/24 05:08 Temperature 96.5 F L 97.8 F Pulse Rate 88 88 Respiratory Rate 18 16 Blood Pressure 157/86 H 156/74 H Pulse Oximetry 100 100 99 Oxygen Delivery Autopap 09/24/24 08:00 09/24/24 13:57 Temperature 96.7 F L Pulse Rate 86 Respiratory Rate 14 Blood Pressure 163/84 H Pulse Oximetry 100 Oxygen Delivery Room Air Intake/Output Intake/Output: Intake & Output 09/21/24 09/22/24 09/23/24 09/24/24 23:59 23:59 23:59 23:59 Intake Total 2310 1970 3010 1480 Output Total 3250 3650 4300 1000 Balance -940 -1680 -1290 480 Meds/Results Medications: Active Medications Generic Name Dose Route Start Last Admin Trade Name Freq PRN Reason Stop Dose Admin Acetaminophen 1,000 mg 09/17/24 19:00 Acetaminophen 500 Mg Tablet PO Q6H PRN Mild Pain (1-3) or Fever Hydrocodone Bitart/Acetaminophen 1 tab 09/17/24 19:00 09/24/24 04:22 Hydrocodone/Acetaminophen (*Crx) 5-325 Mg Tablet PO 1 tab Q4H PRN Administration Pain Rated 4-6 Amlodipine Besylate 5 mg 09/18/24 09:00 09/24/24 08:31 Amlodipine Besylate 5 Mg Tablet BY MOUTH 5 mg DAILY YUKO Administration Collagenase 1 applic 09/25/24 09:00 Collagenase Oint 30 Gm Tube TOPICAL BID YUKO Dextrose 12.5 gm 09/17/24 04:53 Dextrose 50% 25 Gm/50 Ml Syringe IV PUSH PRN PRN Hypoglycemia Protocol Empagliflozin 25 mg 09/18/24 09:00 09/24/24 08:32 Empagliflozin 25 Mg Tablet PO 25 mg DAILY YUKO Administration Enoxaparin Sodium 40 mg 09/18/24 09:00 09/24/24 08:39 Enoxaparin 40 Mg/0.4 Ml Syringe SUB-Q 40 mg DAILY YUKO Administration Fluconazole 400 mg 09/20/24 09:00 09/24/24 08:31 Fluconazole 100 Mg Tablet PO 400 mg QAM YUKO Administration Gabapentin 300 mg 09/17/24 21:00 09/23/24 20:36 Gabapentin 300 Mg Capsule PO 300 mg QHS YUKO Administration Glipizide 2.5 mg 09/18/24 09:00 09/24/24 08:38 Glipizide Xl 2.5 Mg Tab.Er.24 PO 2.5 mg DAILY YUKO Administration Glucagon 1 mg 09/17/24 04:53 Glucagon For Inj 1 Mg Vial IM PRN PRN Hypoglycemia Protocol Glucose 15 gm 09/17/24 04:53 Glucose Oral Gel 15 Gm Of Glucse In 37.5 Gm Tube PO PRN PRN Hypoglycemia Protocol Hydralazine HCl 10 mg 09/17/24 22:25 09/21/24 01:07 Hydralazine 10 Mg Tablet PO 10 mg QID PRN Administration Hypertensive Emergency Ampicillin Sodium/Sulbactam Sodium 3 gm in 100 mls @ 200 mls/hr 09/20/24 08:00 09/24/24 14:02 Unasyn 3 Gm/Ns 100 Ml IVPB Infused Q6H YUKO Infusion Clindamycin Phosphate 600 mg in 50 mls @ 100 mls/hr 09/20/24 11:00 09/24/24 11:34 Clindamycin 600 Mg/D5w 50 Ml IVPB Infused Q8H YUKO Infusion Vancomycin HCl 1,250 mg in 250 mls @ 166.667 mls/hr 09/21/24 22:00 09/24/24 13:35 Vancomycin 1,250 Mg/Ns 250 Ml IVPB 166.67 mls/hr Q8H YUKO Administration Insulin Aspart 2 - 5 units 09/20/24 08:00 09/24/24 11:53 Insulin Aspart (*Bkc) 100 Units/Ml SUB-Q Not Given [facility] Protocol Lisinopril 20 mg 09/18/24 09:00 09/24/24 08:31 Lisinopril 20 Mg Tablet PO 20 mg DAILY YUKO Administration Morphine Sulfate 4 mg 09/17/24 19:00 Morphine Sulfate (*Crx) 4 Mg/Ml Inj IV PUSH Q4H PRN Pain Rated 7-10 IF NPO Multivitamins Therapeutic 1 tablet 09/18/24 09:00 09/24/24 08:31 Multivitamins Therapeutic Tab (*Bkc) PO 1 tablet DAILY YUKO Administration Ondansetron HCl 4 mg 09/17/24 04:53 Ondansetron Inj 4 Mg/2 Ml Vial IV PUSH Q4H PRN Nausea Oxycodone HCl 5 mg 09/17/24 19:00 09/24/24 14:40 Oxycodone Hcl (*Crx) 5 Mg Tab Ir PO 5 mg Q4H PRN Administration Pain Rated 7-10 Silver Nitrate 10 each 09/21/24 09:59 Silver Nitrate (*Sp) Stick TOPICAL PRN PRN Bleeding Sodium Chloride 10 ml 09/21/24 22:00 09/24/24 13:34 Central Line Flush IV PUSH 10 ml Q8HR YUKO Administration Sodium Chloride 10 ml 09/21/24 15:14 Central Line Flush IV PUSH PRN PRN with TPN bag changes Sodium Chloride 20 ml 09/21/24 15:14 Central Line Flush IV PUSH PRN PRN after blood draws Zinc Sulfate 220 mg 09/18/24 09:00 09/24/24 08:31 Zinc Sulfate 220 Mg Capsule PO 220 mg DAILY YUKO Administration Radiology Results: ITS Impressions Foot CT 09/17/24 06:42 IMPRESSION: Extensive soft tissue gas and fluid/edema predominantly the dorsal aspect of the forefoot, especially from the region of the fourth interspace extending proximally to the level of the proximal third metatarsal shaft. Findings raise suspicion for soft tissue gas forming infection/necrotizing fasciitis with associated phlegmon and developing irregular abscess in the dorsal aspect of the forefoot. Additional possible wound or ulcer at the fifth MTP joint region at the plantar aspect of the foot. No CT evidence for osteomyelitis. Venous Doppler Study 09/17/24 13:20 IMPRESSION: 1: No lower extremity deep venous thrombosis. Chest X-Ray 09/21/24 15:25 Impression: 1: Mild interstitial edema. Labs Labs: Laboratory Results - last 24 hr 09/23/24 09/23/24 09/24/24 16:39 19:40 04:29 WBC 11.1 H RBC 4.13 L Hgb 11.2 L Hct 36.2 L MCV 87.7 MCH 27.1 MCHC 30.9 L RDW 14.0 Plt Count 582 H MPV 9.5 Sodium 138 Potassium 4.0 Chloride 105 Carbon Dioxide 27 Anion Gap 6 BUN 11 Creatinine 0.88 Estim Creat Clear Calc 114 Estimated GFR > 60 Glucose 82 POC Capillary Glucose 92 119 H Calcium 8.5 Magnesium 2.2 09/24/24 09/24/24 07:45 11:44 WBC RBC Hgb Hct MCV MCH MCHC RDW Plt Count MPV Sodium Potassium Chloride Carbon Dioxide Anion Gap BUN Creatinine Estim Creat Clear Calc Estimated GFR Glucose POC Capillary Glucose 84 142 H Calcium Magnesium
[2024-09-24 16:17] LABS: Glucose Point of Care 111 mg/dl (65-105)
--- NOTE | 2024-09-24 16:51 | P.PNIM_ITS ---
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 (2) Morbid obesity with BMI of 40.0-44.9, adult: Code(s): E66.01 - Morbid (severe) obesity due to excess calories; Z68.41 - Body mass index [BMI] 40.0-44.9, adult Status: Acute Assessment and Plan: weight loss adviced (3) Hypokalemia: Code(s): E87.6 - Hypokalemia Status: Acute Assessment and Plan: watch potassium levels abd replace accoirdingly (4) Open wound of plantar aspect of right foot: Code(s): S91.301A - Unspecified open wound, right foot, initial encounter Status: Acute Assessment and Plan: pt going to go for I and D today under general surgery continue npo with D51/2 NS can start diet DM after procedure and DC fluids ct shows necrotitis fascitis surgery decided on i and d (5) Infected puncture wound of plantar aspect of foot: Code(s): S91.339A - Puncture wound without foreign body, unspecified foot, initial encounter; L08.9 - Local infection of the skin and subcutaneous tissue, unspecified Status: Acute Assessment and Plan: likely due to putting extra weight on R side continue iv vancomycin and iv zosyn and cephalexin await wound cultures post procedure follow bc from yesterday (6) Essential hypertension: Code(s): I10 - Essential (primary) hypertension Status: Acute Assessment and Plan: watch Blood pressure continue lisinopril and norvasc add oral hydralazine prn high bps Plan patient presented with open wound of planter aspect of right foot wound, most likely due to diabetes, was found to have necrotizing soft tissue, and had I&D, with debridement on 09/17, CT scan of the foot did not show any OM, patient white counts are improving 11.1 compared to 29.5 upon arrival, patient wound is growing Staph aureus, strep,and Prevotella bivia, repeat foot culture growing same organisms, and being treated with Ampicillin, Clindamycin and vancomycin will follow of blood and wound culture, seen by surgery service on 09/21 wound vac dressing was changed, wound is healing recommendation to IV abx, today patient was seen by surgery service and wound and VAC was checked and apparently the VAC is not staying in its and causing leak, the surgery service has decided not use VAC and use dressing changes with Santyl for continued enzymatic debridement, will monitor and possible discharge patient tomorrow on oral abx per clinical pharmacist. DVT prop lovenox code full code Subjective Date/time seen: 09/24/24 16:51 Interval history: Chief Complaint: wound on R foot H&P-Narrative: 49 year old male PMH of type 2 dm, obesity and htn. 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, often finds it hard to look after his diabetes patient presented with open wound of planter aspect of right foot wound, most likely due to diabetes, was found to have necrotizing soft tissue, and had I&D, with debridement on 09/17, CT scan of the foot did not show any OM, patient white counts are improving 11.1 compared to 29.5 upon arrival, patient wound is growing Staph aureus, strep,and Prevotella bivia, repeat foot culture growing same organisms, and being treated with Ampicillin, Clindamycin and vancomycin will follow of blood and wound culture, seen by surgery service on 09/21 wound vac dressing was changed, wound is healing recommendation to IV abx, today patient was seen by surgery service and wound and VAC was checked and apparently the VAC is not staying in its and causing leak, the surgery service has decided not use VAC and use dressing changes with Santyl for continued enzymatic debridement, will monitor and possible discharge patient tomorrow on oral abx per clinical pharmacist. Review of Systems Review of Systems: foot wound no other specific compliants all 12 systems reviewed and are negative apart from HPI Exam Narrative: Patient is comfortable, NAD HEENT: eyes are clear and none icteric LUNGS:CTA HEART: RR S1S2 ABD: BS+, Soft and nontender Lower extremities: left BKA, right leg with dressing. SKIN: nonjaundiced Neuro: grossly intact. Objective Data Vital Signs Vital Signs: Vital Signs - 24 hr 09/23/24 20:54 09/23/24 22:00 09/24/24 05:08 Temperature 35.8 C L 36.6 C Pulse Rate 88 88 Respiratory Rate 18 16 Blood Pressure 157/86 H 156/74 H Pulse Oximetry 100 100 99 Oxygen Delivery Autopap 09/24/24 08:00 09/24/24 13:57 Temperature 35.9 C L Pulse Rate 86 Respiratory Rate 14 Blood Pressure 163/84 H Pulse Oximetry 100 Oxygen Delivery Room Air Intake/Output Intake/Output: Intake & Output 09/21/24 09/22/24 09/23/24 09/24/24 23:59 23:59 23:59 23:59 Intake Total 2310 1970 3010 1730 Output Total 3250 3650 4300 2500 Balance -940 -1680 -1290 -770 Meds/Results Medications: Active Medications Generic Name Dose Route Start Last Admin Trade Name Freq PRN Reason Stop Dose Admin Acetaminophen 1,000 mg 09/17/24 19:00 Acetaminophen 500 Mg Tablet PO Q6H PRN Mild Pain (1-3) or Fever Hydrocodone Bitart/Acetaminophen 1 tab 09/17/24 19:00 09/24/24 04:22 Hydrocodone/Acetaminophen (*Crx) 5-325 Mg Tablet PO 1 tab Q4H PRN Administration Pain Rated 4-6 Amlodipine Besylate 5 mg 09/18/24 09:00 09/24/24 08:31 Amlodipine Besylate 5 Mg Tablet BY MOUTH 5 mg DAILY YUKO Administration Collagenase 1 applic 09/25/24 09:00 Collagenase Oint 30 Gm Tube TOPICAL BID YUKO Dextrose 12.5 gm 09/17/24 04:53 Dextrose 50% 25 Gm/50 Ml Syringe IV PUSH PRN PRN Hypoglycemia Protocol Empagliflozin 25 mg 09/18/24 09:00 09/24/24 08:32 Empagliflozin 25 Mg Tablet PO 25 mg DAILY YUKO Administration Enoxaparin Sodium 40 mg 09/18/24 09:00 09/24/24 08:39 Enoxaparin 40 Mg/0.4 Ml Syringe SUB-Q 40 mg DAILY YUKO Administration Fluconazole 400 mg 09/20/24 09:00 09/24/24 08:31 Fluconazole 100 Mg Tablet PO 400 mg QAM YUKO Administration Gabapentin 300 mg 09/17/24 21:00 09/23/24 20:36 Gabapentin 300 Mg Capsule PO 300 mg QHS YUKO Administration Glipizide 2.5 mg 09/18/24 09:00 09/24/24 08:38 Glipizide Xl 2.5 Mg Tab.Er.24 PO 2.5 mg DAILY YUKO Administration Glucagon 1 mg 09/17/24 04:53 Glucagon For Inj 1 Mg Vial IM PRN PRN Hypoglycemia Protocol Glucose 15 gm 09/17/24 04:53 Glucose Oral Gel 15 Gm Of Glucse In 37.5 Gm Tube PO PRN PRN Hypoglycemia Protocol Hydralazine HCl 10 mg 09/17/24 22:25 09/21/24 01:07 Hydralazine 10 Mg Tablet PO 10 mg QID PRN Administration Hypertensive Emergency Ampicillin Sodium/Sulbactam Sodium 3 gm in 100 mls @ 200 mls/hr 09/20/24 08:00 09/24/24 14:02 Unasyn 3 Gm/Ns 100 Ml IVPB Infused Q6H YUKO Infusion Clindamycin Phosphate 600 mg in 50 mls @ 100 mls/hr 09/20/24 11:00 09/24/24 11:34 Clindamycin 600 Mg/D5w 50 Ml IVPB Infused Q8H YUKO Infusion Vancomycin HCl 1,250 mg in 250 mls @ 166.667 mls/hr 09/21/24 22:00 09/24/24 15:05 Vancomycin 1,250 Mg/Ns 250 Ml IVPB Infused Q8H YUKO Infusion Insulin Aspart 2 - 5 units 09/20/24 08:00 09/24/24 16:19 Insulin Aspart (*Bkc) 100 Units/Ml SUB-Q Not Given [facility] Protocol Lisinopril 20 mg 09/18/24 09:00 09/24/24 08:31 Lisinopril 20 Mg Tablet PO 20 mg DAILY YUKO Administration Morphine Sulfate 4 mg 09/17/24 19:00 Morphine Sulfate (*Crx) 4 Mg/Ml Inj IV PUSH Q4H PRN Pain Rated 7-10 IF NPO Multivitamins Therapeutic 1 tablet 09/18/24 09:00 09/24/24 08:31 Multivitamins Therapeutic Tab (*Bkc) PO 1 tablet DAILY YUKO Administration Ondansetron HCl 4 mg 09/17/24 04:53 Ondansetron Inj 4 Mg/2 Ml Vial IV PUSH Q4H PRN Nausea Oxycodone HCl 5 mg 09/17/24 19:00 09/24/24 14:40 Oxycodone Hcl (*Crx) 5 Mg Tab Ir PO 5 mg Q4H PRN Administration Pain Rated 7-10 Silver Nitrate 10 each 09/21/24 09:59 Silver Nitrate (*Sp) Stick TOPICAL PRN PRN Bleeding Sodium Chloride 10 ml 09/21/24 22:00 09/24/24 13:34 Central Line Flush IV PUSH 10 ml Q8HR YUKO Administration Sodium Chloride 10 ml 09/21/24 15:14 Central Line Flush IV PUSH PRN PRN with TPN bag changes Sodium Chloride 20 ml 09/21/24 15:14 Central Line Flush IV PUSH PRN PRN after blood draws Zinc Sulfate 220 mg 09/18/24 09:00 09/24/24 08:31 Zinc Sulfate 220 Mg Capsule PO 220 mg DAILY YUKO Administration Radiology Results: ITS Impressions Foot CT 09/17/24 06:42 IMPRESSION: Extensive soft tissue gas and fluid/edema predominantly the dorsal aspect of the forefoot, especially from the region of the fourth interspace extending proximally to the level of the proximal third metatarsal shaft. Findings raise suspicion for soft tissue gas forming infection/necrotizing fasciitis with associated phlegmon and developing irregular abscess in the dorsal aspect of the forefoot. Additional possible wound or ulcer at the fifth MTP joint region at the plantar aspect of the foot. No CT evidence for osteomyelitis. Venous Doppler Study 09/17/24 13:20 IMPRESSION: 1: No lower extremity deep venous thrombosis. Chest X-Ray 09/21/24 15:25 Impression: 1: Mild interstitial edema. Labs Labs: Laboratory Results - last 24 hr 09/23/24 09/24/24 09/24/24 19:40 04:29 07:45 WBC 11.1 H RBC 4.13 L Hgb 11.2 L Hct 36.2 L MCV 87.7 MCH 27.1 MCHC 30.9 L RDW 14.0 Plt Count 582 H MPV 9.5 Sodium 138 Potassium 4.0 Chloride 105 Carbon Dioxide 27 Anion Gap 6 BUN 11 Creatinine 0.88 Estim Creat Clear Calc 114 Estimated GFR > 60 Glucose 82 POC Capillary Glucose 119 H 84 Calcium 8.5 Magnesium 2.2 09/24/24 09/24/24 11:44 16:14 WBC RBC Hgb Hct MCV MCH MCHC RDW Plt Count MPV Sodium Potassium Chloride Carbon Dioxide Anion Gap BUN Creatinine Estim Creat Clear Calc Estimated GFR Glucose POC Capillary Glucose 142 H 111 H Calcium Magnesium
[2024-09-24 19:23] VITALS: PULSE 68; RESP 20; O2SAT 96
[2024-09-24 19:41] VITALS: BP 146/85; PULSE 93; RESP 16; TEMP 37; O2SAT 100
[2024-09-24] MEDS: GABAPENTIN 300 MG CAPSULE PO (20:46)
[2024-09-24] MEDS: VANCOMYCIN 1,250 MG/NS 250 ML 1,250 MG/250 ML BAG 250 MG IVPB (20:47)
[2024-09-24 21:11] LABS: Glucose Point of Care 135 mg/dl (65-105)
[2024-09-25] MEDS: CLINDAMYCIN 600 MG/D5W 50 ML 600 MG/50 ML PIGGYBACK 100 MG IVPB ×2 (02:34→10:06)
[2024-09-25] MEDS: AMPICILLIN SULB 3 GM/NS 100 ML 3 GM/100 ML VIAL IVPB ×3 (02:39→13:26)
[2024-09-25] MEDS: HYDROcodone/acetaminophen (*CRX) 5-325 MG TABLET 1 TAB PO ×2 (02:44→08:36)
[2024-09-25 04:11] VITALS: BP 143/84; PULSE 76; RESP 16; TEMP 36.7; O2SAT 100
[2024-09-25 05:35] LABS: Hematocrit 37.9 % (42.0-52.0); Hemoglobin 11.8 g/dL (14.0-18.0); Mean Corpuscular HGB Conc 31.1 g/dl (32-36); Mean Corpuscular Hemoglobin 27.1 pg (26-34); Mean Corpuscular Volume 87.1 fl (80-100); Mean Platelet Volume 9.1 fl (7.4-10.4); Platelet Count Result 593 k/mm3 (150-375); Red Blood Count 4.35 M/mm3 (4.6-6.20); Red Cell Distribution Width 13.9 % (11.5-14.5)
[2024-09-25 05:53] LABS: Vancomycin Trough 19.8 ug/mL (10.0-20.0)
[2024-09-25 06:26] LABS: Anion Gap 9 mmol/L (4-12); Blood Urea Nitrogen 10 mg/dL (9-20); Calcium 8.4 mg/dL (8.4-10.2); Carbon Dioxide 24 mmol/L (22-30); Chloride 106 mmol/L (98-107); Estimated CRCL calculation 133 ml/min; Estimated Glomerular Filt Rate > 60; Glucose 97 mg/dL (65-110); Magnesium 2.2 mg/dL (1.6-2.3); Potassium 4.1 mmol/L (3.4-5.0); Sodium 139 mmol/L (137-145)
[2024-09-25] MEDS: VANCOMYCIN 1,000 MG/NS 250 ML 1,000 MG/250 ML BAG 250 MG IVPB ×2 (06:40→13:53)
[2024-09-25] MEDS: CENTRAL LINE FLUSH 10 ML IV PUSH ×2 (06:45→13:29)
[2024-09-25 07:59] LABS: Glucose Point of Care 113 mg/dl (65-105)
[2024-09-25 08:00] VITALS: O2SAT 100
[2024-09-25] MEDS: glipiZIDE XL 2.5 MG TAB.ER.24 PO (08:09)
[2024-09-25] MEDS: lisinopriL 20 MG TABLET PO (08:09)
[2024-09-25] MEDS: ENOXAPARIN 40 MG/0.4 ML SYRINGE SUB-Q (08:09)
[2024-09-25] MEDS: MULTIVITAMINS THERAPEUTIC TAB (*BKC) 1 TABLET PO (08:09)
[2024-09-25] MEDS: amLODIPine BESYLATE 5 MG TABLET BY MOUTH (08:09)
[2024-09-25] MEDS: EMPAGLIFLOZIN 25 MG TABLET PO (08:09)
[2024-09-25] MEDS: FLUCONAZOLE 100 MG TABLET 400 MG PO (08:09)
[2024-09-25] MEDS: ZINC SULFATE 220 MG CAPSULE PO (08:09)
[2024-09-25 11:49] LABS: Glucose Point of Care 156 mg/dl (65-105)
--- NOTE | 2024-09-25 11:52 | P.PNGS_ITS ---
Progress Note: A&P Assessment and Plan (1) Open wound of plantar aspect of right foot: Code(s): S91.301A - Unspecified open wound, right foot, initial encounter Status: Acute Assessment and Plan: * Patient's will do the dressing change today. She was educated yesterday by wound care. If there are no concerns with his wound care, then the patient can discharge later today after his dressing change on oral antibiotics. We will send him home with another 2 weeks of antibiotics. ID pharmacist recommending Augmentin and doxycycline. * PICC line will be removed prior to discharge. * Continue Santyl dressing changes daily for continued enzymatic debridement. * He has been instructed to continue heel touch weight-bearing for transfers only, but recommended getting a wheeled scooter to allow for nonweightbearing on the right lower extremity for getting around. * Follow-up with Dr. [facility] is scheduled for for a wound recheck. Home health has also been set up. Plan I have discussed the patient's case and plan of care with Dr. Sims. Subjective Subjective Date/Time Seen: 09/25/24 11:52 Interval history: No acute events overnight. No complaints this morning. Pain well controlled with oral pain medication. His is coming up this afternoon to do his dressing change with wound care present. Exam Narrative: Right foot dressing dry and intact. Objective Data Vital Signs Vital Signs: Vital Signs - 24 hr 09/24/24 13:57 09/24/24 19:23 09/24/24 19:41 Temperature 96.7 F L 98.6 F Pulse Rate 86 68 93 Respiratory Rate 14 20 16 Blood Pressure 163/84 H 146/85 H Pulse Oximetry 100 96 100 Oxygen Delivery Room Air Fraction of Inspired Oxygen 21 09/25/24 04:11 09/25/24 08:00 Temperature 98.0 F Pulse Rate 76 Respiratory Rate 16 Blood Pressure 143/84 H Pulse Oximetry 100 100 Oxygen Delivery Room Air Fraction of Inspired Oxygen Intake/Output Intake/Output: Intake & Output 09/22/24 09/23/24 09/24/24 09/25/24 23:59 23:59 23:59 23:59 Intake Total 1970 3010 2670 640 Output Total 3650 4300 2500 1240 Balance -1680 -1290 170 -600 Meds/Results Medications: Active Medications Generic Name Dose Route Start Last Admin Trade Name Freq PRN Reason Stop Dose Admin Acetaminophen 1,000 mg 09/17/24 19:00 Acetaminophen 500 Mg Tablet PO Q6H PRN Mild Pain (1-3) or Fever Hydrocodone Bitart/Acetaminophen 1 tab 09/17/24 19:00 09/25/24 08:36 Hydrocodone/Acetaminophen (*Crx) 5-325 Mg Tablet PO 1 tab Q4H PRN Administration Pain Rated 4-6 Amlodipine Besylate 5 mg 09/18/24 09:00 09/25/24 08:09 Amlodipine Besylate 5 Mg Tablet BY MOUTH 5 mg DAILY YUKO Administration Collagenase 1 applic 09/25/24 09:00 Collagenase Oint 30 Gm Tube TOPICAL BID YUKO Dextrose 12.5 gm 09/17/24 04:53 Dextrose 50% 25 Gm/50 Ml Syringe IV PUSH PRN PRN Hypoglycemia Protocol Empagliflozin 25 mg 09/18/24 09:00 09/25/24 08:09 Empagliflozin 25 Mg Tablet PO 25 mg DAILY YUKO Administration Enoxaparin Sodium 40 mg 09/18/24 09:00 09/25/24 08:09 Enoxaparin 40 Mg/0.4 Ml Syringe SUB-Q 40 mg DAILY YUKO Administration Fluconazole 400 mg 09/20/24 09:00 09/25/24 08:09 Fluconazole 100 Mg Tablet PO 400 mg QAM YUKO Administration Gabapentin 300 mg 09/17/24 21:00 09/24/24 20:46 Gabapentin 300 Mg Capsule PO 300 mg QHS YUKO Administration Glipizide 2.5 mg 09/18/24 09:00 09/25/24 08:09 Glipizide Xl 2.5 Mg Tab.Er.24 PO 2.5 mg DAILY YUKO Administration Glucagon 1 mg 09/17/24 04:53 Glucagon For Inj 1 Mg Vial IM PRN PRN Hypoglycemia Protocol Glucose 15 gm 09/17/24 04:53 Glucose Oral Gel 15 Gm Of Glucse In 37.5 Gm Tube PO PRN PRN Hypoglycemia Protocol Hydralazine HCl 10 mg 09/17/24 22:25 09/21/24 01:07 Hydralazine 10 Mg Tablet PO 10 mg QID PRN Administration Hypertensive Emergency Ampicillin Sodium/Sulbactam Sodium 3 gm in 100 mls @ 200 mls/hr 09/20/24 08:00 09/25/24 08:08 Unasyn 3 Gm/Ns 100 Ml IVPB 200 mls/hr Q6H YUKO Administration Clindamycin Phosphate 600 mg in 50 mls @ 100 mls/hr 09/20/24 11:00 09/25/24 10:06 Clindamycin 600 Mg/D5w 50 Ml IVPB 100 mls/hr Q8H YUKO Administration Vancomycin HCl 1,000 mg in 250 mls @ 250 mls/hr 09/25/24 06:00 09/25/24 06:40 Vancomycin 1,000 Mg/Ns 250 Ml IVPB 250 mls/hr Q8H YUKO Administration Insulin Aspart 2 - 5 units 09/20/24 08:00 09/25/24 08:06 Insulin Aspart (*Bkc) 100 Units/Ml SUB-Q Not Given TIDWM [facility] Protocol Lisinopril 20 mg 09/18/24 09:00 09/25/24 08:09 Lisinopril 20 Mg Tablet PO 20 mg DAILY YUKO Administration Morphine Sulfate 4 mg 09/17/24 19:00 Morphine Sulfate (*Crx) 4 Mg/Ml Inj IV PUSH Q4H PRN Pain Rated 7-10 IF NPO Multivitamins Therapeutic 1 tablet 09/18/24 09:00 09/25/24 08:09 Multivitamins Therapeutic Tab (*Bkc) PO 1 tablet DAILY [facility] Administration Ondansetron HCl 4 mg 09/17/24 04:53 Ondansetron Inj 4 Mg/2 Ml Vial IV PUSH Q4H PRN Nausea Oxycodone HCl 5 mg 09/17/24 19:00 09/24/24 20:45 Oxycodone Hcl (*Crx) 5 Mg Tab Ir PO 5 mg Q4H PRN Administration Pain Rated 7-10 Silver Nitrate 10 each 09/21/24 09:59 Silver Nitrate (*Sp) Stick TOPICAL PRN PRN Bleeding Sodium Chloride 10 ml 09/21/24 22:00 09/25/24 06:45 Central Line Flush IV PUSH 10 ml Q8HR YUKO Administration Sodium Chloride 10 ml 09/21/24 15:14 Central Line Flush IV PUSH PRN PRN with TPN bag changes Sodium Chloride 20 ml 09/21/24 15:14 Central Line Flush IV PUSH PRN PRN after blood draws Zinc Sulfate 220 mg 09/18/24 09:00 09/25/24 08:09 Zinc Sulfate 220 Mg Capsule PO 220 mg DAILY YUKO Administration Radiology Results: ITS Impressions Foot CT 09/17/24 06:42 IMPRESSION: Extensive soft tissue gas and fluid/edema predominantly the dorsal aspect of the forefoot, especially from the region of the fourth interspace extending proximally to the level of the proximal third metatarsal shaft. Findings raise suspicion for soft tissue gas forming infection/necrotizing fasciitis with associated phlegmon and developing irregular abscess in the dorsal aspect of the forefoot. Additional possible wound or ulcer at the fifth MTP joint region at the plantar aspect of the foot. No CT evidence for osteomyelitis. Venous Doppler Study 09/17/24 13:20 IMPRESSION: 1: No lower extremity deep venous thrombosis. Chest X-Ray 09/21/24 15:25 Impression: 1: Mild interstitial edema. Labs Labs: Laboratory Results - last 24 hr 09/24/24 09/24/24 09/24/24 11:44 16:14 20:01 WBC RBC Hgb Hct MCV MCH MCHC RDW Plt Count MPV Sodium Potassium Chloride Carbon Dioxide Anion Gap BUN Creatinine Estim Creat Clear Calc Estimated GFR Glucose POC Capillary Glucose 142 H 111 H 135 H Calcium Magnesium Vancomycin Trough 09/25/24 09/25/24 09/25/24 05:28 07:54 10:58 WBC 9.0 RBC 4.35 L Hgb 11.8 L Hct 37.9 L MCV 87.1 MCH 27.1 MCHC 31.1 L RDW 13.9 Plt Count 593 H MPV 9.1 Sodium 139 Potassium 4.1 Chloride 106 Carbon Dioxide 24 Anion Gap 9 BUN 10 Creatinine 0.75 Estim Creat Clear Calc 133 Estimated GFR > 60 Glucose 97 POC Capillary Glucose 113 H 156 H Calcium 8.4 Magnesium 2.2 Vancomycin Trough 19.8
[2024-09-25 13:51] VITALS: BP 144/77; PULSE 85; RESP 18; TEMP 35.8; O2SAT 100
[2024-09-25] MEDS: oxyCODONE HCL (*CRX) 5 MG TAB IR PO (14:31)
--- NOTE | 2024-09-25 15:11 | P.DS_ITS ---
DS: Admitting Diagnosis Discharge Date Admitting Diagnosis wound on R foot DS: Discharge Diagnosis Discharge Diagnosis (1) Type 2 diabetes mellitus with hyperglycemia: Qualifiers: Diabetes mellitus terminal manager insulin use: without intermediate use Qualified Code(s): E11.65 - Type 2 diabetes mellitus with hyperglycemia Code(s): E11.65 - Type 2 diabetes mellitus with hyperglycemia Status: Acute Assessment and Plan: accuchecks SSI [facility] sap ppm consultant and DM educator (2) Morbid obesity with BMI of 40.0-44.9, adult: Code(s): E66.01 - Morbid (severe) obesity due to excess calories; Z68.41 - Body mass index [BMI] 40.0-44.9, adult Status: Acute Assessment and Plan: weight loss adviced (3) Hypokalemia: Code(s): E87.6 - Hypokalemia Status: Acute Assessment and Plan: watch potassium levels abd replace accoirdingly (4) Open wound of plantar aspect of right foot: Code(s): S91.301A - Unspecified open wound, right foot, initial encounter Status: Acute Assessment and Plan: pt going to go for I and D today under general surgery continue npo with D51/2 NS can start diet DM after procedure and DC fluids ct shows necrotitis fascitis surgery decided on i and d (5) Infected puncture wound of plantar aspect of foot: Code(s): S91.339A - Puncture wound without foreign body, unspecified foot, initial encounter; L08.9 - Local infection of the skin and subcutaneous tissue, unspecified Status: Acute Assessment and Plan: likely due to putting extra weight on R side continue iv vancomycin and iv zosyn and cephalexin await wound cultures post procedure follow bc from yesterday (6) Essential hypertension: Code(s): I10 - Essential (primary) hypertension Status: Acute Assessment and Plan: watch Blood pressure continue lisinopril and norvasc add oral hydralazine prn high bps Plan patient presented with open wound of planter aspect of right foot wound, most likely due to diabetes, was found to have necrotizing soft tissue, and had I&D, with debridement on 09/17, CT scan of the foot did not show any OM, patient white counts are improving 11.1 compared to 29.5 upon arrival, patient wound is growing Staph aureus, strep,and Prevotella bivia, repeat foot culture growing same organisms, and being treated with Ampicillin, Clindamycin and vancomycin will follow of blood and wound culture, seen by surgery service on 09/21 wound vac dressing was changed, wound is healing recommendation to IV abx, today patient was seen by surgery service and wound and VAC was checked and apparently the VAC is not staying in its and causing leak, the surgery service has decided not use VAC and use dressing changes with Santyl for continued enzymatic debridement, will monitor and possible discharge patient tomorrow on oral abx per clinical pharmacist. DVT prop lovenox code full code DS: Summary Hospital Course Hospital Course: patient presented with open wound of planter aspect of right foot wound, most likely due to diabetes, was found to have necrotizing soft tissue, and had I&D, with debridement on 09/17, CT scan of the foot did not show any OM, patient white counts are improving 11.1 compared to 29.5 upon arrival, patient wound is growing Staph aureus, strep,and Prevotella bivia, repeat foot culture growing same organisms, and being treated with Ampicillin, Clindamycin and vancomycin will follow of blood and wound culture, seen by surgery service on 09/21 wound vac dressing was changed, wound is healing recommendation to IV abx, today jesenia ambrose was seen by surgery service and wound and VAC was checked and apparently the VAC is not staying in its and causing leak, the surgery service has decided not use VAC and use dressing changes with Santyl for continued enzymatic debridement, will monitor and possible discharge patient tomorrow on oral abx per clinical pharmacist. patient is seen by surgery service and clinically stable, will discharge home today. Time Spent with Patient Time attestation: Total time spent providing and/or coordinating discharge services: Exam Narrative: Patient is comfortable, NAD HEENT: eyes are clear and none icteric LUNGS:CTA HEART: RR S1S2 ABD: BS+, Soft and nontender Lower extremities: left BKA, right leg with dressing. SKIN: nonjaundiced Neuro: grossly intact. DS: Data Data Completed and Pending Labs on day of discharge: Labs from last 24 hours 09/25/24 09/25/24 09/25/24 10:58 07:54 05:28 WBC 9.0 RBC 4.35 L Hgb 11.8 L Hct 37.9 L MCV 87.1 MCH 27.1 MCHC 31.1 L RDW 13.9 Plt Count 593 H MPV 9.1 Sodium 139 Potassium 4.1 Chloride 106 Carbon Dioxide 24 Anion Gap 9 BUN 10 Creatinine 0.75 Estim Creat Clear Calc 133 Estimated GFR > 60 Glucose 97 POC Capillary Glucose 156 H 113 H Calcium 8.4 Magnesium 2.2 Vancomycin Trough 19.8 09/24/24 09/24/24 20:01 16:14 WBC RBC Hgb Hct MCV MCH MCHC RDW Plt Count MPV Sodium Potassium Chloride Carbon Dioxide Anion Gap BUN Creatinine Estim Creat Clear Calc Estimated GFR Glucose POC Capillary Glucose 135 H 111 H Calcium Magnesium Vancomycin Trough Discharge Plan Discharge Attending physician on discharge: Bladimir Rosario Consulting providers: Roderick Sims; Suzan Joel; Linda Tristan; Mauri Castellano; Peggy Durand; Haroldo Rabago; Andres Kenny Discharging Clinician: Gabriela Ball Patient Disposition: Home with Home Health Service Activity: as tolerated Diet: heart healthy and diabetic Discharge Instructions: Per Care Coordination: [facility] for RN visits for wound dressing changes and PT, OT needs ([phone]). [facility] will call to schedule first visit. * Patient to follow up with Dr. Sims on September 27 at 9:30 am at the Wound Center. * Please arrive 30 minutes prior to appointment time to register as an outpatient. * Registration is located in the Lab area in the [facility]) then proceed to the wound center on the second floor. * Call with questions [phone]. * Wound care instructions: Twice a day dressing changes to right foot wounds. Apply santyl ointment to wounds beds, Place piece of adaptic/vaseline gauze over dorsal foot wound. Apply gauze 4x4 fluffs over both wound beds, Cover all with ABD pads and roll gauze dressing. * wall mirror department supervisor your antibiotics and take them as prescribed. * Okay to transfer to chair or bed with heel-touch weight bearing on your right foot, but DO NOT bear weight on the front of your foot (forefoot). You may use a wheeled kneeling scooter to get around otherwise. * * Patient to follow discharge care instruction from his surgeon and follow up as scheduled, patient to follow up with his primary care provider as soon as possible, patient is instructed if any symptoms redevelop to go to nearest ER. * * Patient is instructed not to take his vitamins and mineral with doxycycline, give 4 hours a apart. Patient Instructions: Antibiotic Form, Removal of a Central Line, PICC, or Midline Catheter (DC) Patient Language: Austrian Stand Alone Forms: General Discharge Information Follow-up/Referrals: Aram Rugigero APRN [Primary Care Provider] - Roderick Sims MD [Physician] - Keep Reg. Scheduled Appt. Discharge Medications: New hydrocodone-acetaminophen 5-325 mg Tablet 1 tablet PO Q6H PRN (Reason: Pain Rated 4-6) Qty: 20 0RF amoxicillin-pot clavulanate 875-125 mg tablet 1 tablet PO Q12H 14 Days Qty: 28 1RF doxycycline hyclate 100 mg tablet 100 mg PO BID 14 Days Qty: 28 1RF Rx Instructions: Take at lunch and at bedtime to avoid interaction with zinc/multivitamin. Multivitamin can be taken either 2 hours before the doxycycline or 4 hours after. Santyl 250 unit/gram Ointment 1 applic topical BID Qty: 60 0RF Continued lisinopril 10 mg tablet 20 mg PO DAILY Qty: 60 1RF gabapentin [Neurontin] 300 mg capsule 300 mg PO QHS Qty: 30 1RF tirzepatide 5 mg/0.5 mL pen injector 5 mg SUBCUT WEEKLY Qty: 2 2RF amlodipine [Norvasc] 5 mg tablet 5 mg BYMOUTH DAILY Qty: 90 1RF glipizide 2.5 mg tablet extended release 24hr 2.5 mg PO DAILY Qty: 90 0RF Jardiance 25 mg tablet See Rx Instructions .ROUTE .COMPLEX Qty: 90 0RF Dose Instruction: Take 1 tablet by mouth once daily Rx Instructions: Take 1 tablet by mouth once daily tadalafil [Cialis] 10 mg tablet 10 mg PO DAILY PRN (Reason: sexual activity) Qty: 30 3RF Rx Instructions: administer approximately 30min before sexual activity; do not use more than 1 dose per 24hrs insulin glargine [Lantus U-100 Insulin] 100 unit/mL Solution 10 unit SUBCUT QHS fluconazole 200 mg Tablet 400 mg PO DAILY multivitamin with folic acid 400 mcg Tablet 1 tablet PO DAILY zinc sulfate 50 mg zinc (220 mg) Capsule 220 mg PO DAILY Qty: 30 0RF acetaminophen 500 mg Tablet 1,000 mg PO Q6H PRN (Reason: prn) Qty: 30 0RF Discontinued cephalexin 500 mg capsule 500 mg PO Q12H Qty: 20 0RF Date of admission: 09/17/24 10:18 Primary Care Provider: Aram Ruggiero Admitting Provider: Bladimir Rosario Attending physician on admission: Gabriela Ball Condition: Stable
--- NOTE | 2024-09-28 15:09 | PCCDE ---
09/28/24: 15:00 - 15:09 DM educator courtesy follow up call placed. on speaker phone. on Glipizide, Kamron and Yoshiunwanderro Only question is re: low glucose, symptoms; stating lowest home glucose 80. - Educated re: target glucose - Educated/Reviewed hypoglycemia definition & treatment - Discussed potential with DM hx of hyperglycemia and possibility for hypoglycemia symptoms w/glucose in target range. Ideas discussed. - Concerns addressed - Pt to talk with HCP at next appt re: Outpatient DSMT/MNT (to call for hospital DC follow up appt) FJ
== END 2024-09-25 17:00 | disposition home health service (06) | DRG 622 ==
LOC: ANHED 04:54 → ANH3MEDSUR 05:24
PROVIDERS: Surgery; Admitting Provider Internal Medicine; Emergency Provider Student in an Organized Health Care Education/Training Program; PCP Student in an Organized Health Care Education/Training Program; Visit Provider Family Medicine
DX: E11.621 Type 2 diabetes mellitus with foot ulcer (principal); M72.6 Necrotizing fasciitis; Z68.41 Body mass index [BMI] 40.0-44.9, adult; L97.518 Non-pressure chronic ulcer of other part of right foot with other specified severity; E11.69 Type 2 diabetes mellitus with other specified complication; I10 Essential (primary) hypertension; E87.6 Hypokalemia; E66.01 Morbid (severe) obesity due to excess calories; E11.65 Type 2 diabetes mellitus with hyperglycemia; K58.1 Irritable bowel syndrome with constipation; F41.9 Anxiety disorder, unspecified; Z79.4 Long term (current) use of insulin; Z89.512 Acquired absence of left leg below knee
CPT/HCPCS: 36415; 36569; 73700; 80048; 80053; 80202; 81001; 82948; 83605; 83735; 83880; 85025; 85027; 85380; 85610; 85652; 85730; 86140; 86850; 86900; 86901; 87040; 87070; 87075; 87181; 87205; 93971; 96361; 96365; 96366; 96367; 96368; 96375; 96376; 97110; 97116; 97162; 97165; 97530; 99285; A9270; C1751; G0378; J0295; J1650; J1815; J2003; J2004; J2250; J2405; J2543; J2704; J3010; J3370; J7030; J7120

== ENCOUNTER 2024-12-05 07:08 | Outpatient (RCR) | payer OTHER, SELFPAY ==
[2024-09-27 10:35] VITALS: BMI 38.9
--- NOTE | 2024-09-30 11:55 | WPDPN ---
Progress Note: A&P Assessment and Plan (1) Necrotizing fasciitis of ankle and foot: Code(s): M72.6 - Necrotizing fasciitis Status: Acute Assessment and Plan: Patient had a diabetic necrotizing soft tissue infection of the right foot. He underwent extensive incision and drainage of an abscess and debridement of necrotic tissue. Extensor tendons worse were preserved and the wound is now being treated with daily dressing changes at home by home health nurses and the patient's . He is on appropriate oral antibiotics. There is formation of granulation tissue at the base and all the tones remained viable. Continue present dressing changes. See the patient back in the Wound Care Clinic next week. Continue his oral antibiotics home. Subjective Date/time seen: 09/27/24 Interval history: Patient comes to the [facility] after being discharged early in the week from hospital after incision drainage right foot abscess and debridement of necrotic tissue a diabetic foot wound and abscess. Initial attempts to manage the patient a wound VAC was unsuccessful due to not being able to obtain a good seal around the toes. Since then he has been getting daily dressing changes by home health nurses and his with gauze. He has no complaints today. He continues on appropriate oral antibiotics directed by his culture results. Exam Extrem: Other: The right dorsal forefoot has a 6.1x8.5x2cm wound which is irregularly shaped. There is tendon exposed at the base of the 5th toe. There is no necrotic tissue however. There has been formation of some granulation tissue on the extensor tendons to the 2nd 3rd and 4th toes. There is no purulent drainage and no necrotic tissue. On the right plantar surface of the forefoot there is a 1.5x2x0.4 cm wound which again has relation tissue noted without drainage of purulent material or presence of any necrotic tissue. On the 5th toe on the plantar surface there is a 0.7x1.5cm dry eschar at the toes viable. The patient is able to dorsiflex office right foot toes. Objective Data Meds/Results Medications: Active Medications Generic Name Dose Route Start Last Admin Trade Name Freq PRN Reason Stop Dose Admin Collagenase 1 applic 09/27/24 10:32 Collagenase Oint 30 Gm Tube TOPICAL 12/28/24 23:59 PRN PRN Wound Care
--- NOTE | 2024-10-02 15:58 | WPDPN ---
Progress Note: A&P Assessment and Plan (1) Necrotizing fasciitis of ankle and foot: Code(s): M72.6 - Necrotizing fasciitis Status: Acute Assessment and Plan: Patient's right foot wound continues to heal well. There has been excellent progression of healing with granulation tissue at the base over the tendons now. He still has function of all of his toes on his right foot. No necrotic tissue was noted. Drain is serous. Continue present daily dressing changes. We will see him back in the office in 2 weeks. He will finish his course of oral antibiotics in about 1 week. After he has finished that I have told him not to refill his antibiotics. Subjective Date/time seen: 10/02/24 15:58 Interval history: Patient was seen 5 days ago re-evaluation of the right dorsal forefoot wound. He had extensive incision and drainage of an abscess in the room and nonviable skin from a necrotizing soft tissue infection diabetic wound. His blood sugars have been running in the 80s to 150s. His is doing dressing changes at home daily and home health nurses are coming to see him twice a week. Exam Extrem: Other: He dorsal wound measures 6x8.5x1.7. There is exposure of the tendon to the 5th toe at the base of the wound. The remaining tendons now had healed to the point there is dilation tissue base over those tendons now. The patient is able to continue to move all of his toes. On the plantar surface of the right forefoot there is a 1.5x1.9x0.2cm wound which is clean. The right 5th toe has a 1.5x1.5cm eschar at the tip. Objective Data Meds/Results Medications: Active Medications Generic Name Dose Route Start Last Admin Trade Name Freq PRN Reason Stop Dose Admin Collagenase 1 applic 09/27/24 10:32 Collagenase Oint 30 Gm Tube TOPICAL 12/28/24 23:59 PRN PRN Wound Care
--- NOTE | 2024-10-18 12:05 | WPDPN ---
Progress Note: A&P Assessment and Plan (1) Necrotizing fasciitis of ankle and foot: Code(s): M72.6 - Necrotizing fasciitis Status: Acute Assessment and Plan: Patient is improving nicely and the wound is starting to close. There is only a small area of tissue to need some in diabetic debridement and will continue to apply the Santyl to that small area. The patient's is showing no where to apply the Santyl. The remaining part of the wound in all the granulation tissue can just be cover was sober gel. We then cover the wound with dry gauze and wrapped with dry gauze and Hang wrap. I will plan on seeing the patient back in the [facility] in about 3 weeks. Subjective Date/time seen: 10/16/24 Interval history: Patient returns to the [facility] for evaluation today. It has been 2 weeks since I have seen him. The right diabetic foot wound is healing well. Patient's family is helping with dressing changes at home and is being packed with Santyl at the base and gauze. Exam Extrem: Other: The right foot wound now measures on the dorsal surface 6x8.8x2.5cm. The plantar surface there is a 0.6x0.8x0.1 wound. Both wounds are clean. The dorsal wound has a small area of superficial fibrinous tissue which will need some enzymatic debridement. The rest of the wound looks very healthy with good granulation tissue. The extensor tendons to the 2nd 3rd and 4th toes are all covered with granulation tissue now and are not exposed. The extensor tendon to the 5th toe was still exposed but healthy and viable. He is able to bend and move all of his remaining toes in the right foot. Objective Data Meds/Results Medications: Active Medications Generic Name Dose Route Start Last Admin Trade Name Freq PRN Reason Stop Dose Admin Collagenase 1 applic 09/27/24 10:32 Collagenase Oint 30 Gm Tube TOPICAL 12/28/24 23:59 PRN PRN Wound Care
--- NOTE | 2024-11-06 15:46 | P.PN_ITS ---
Progress Note: A&P Assessment and Plan (1) Necrotizing fasciitis of ankle and foot: Code(s): M72.6 - Necrotizing fasciitis Status: Acute Assessment and Plan: The wound on the dorsal aspect of the right foot continues to heal by secondary intention. The depth and size of the wound is decreasing. The deep as per the wound is still in lateral aspect of the right forefoot. We will continue to apply silver gel to the wound. No longer needs to apply Santyl to the area the extensor tendon to the 5th toe. It looks like the area well ventrally granulate over but will likely be last part does this. Continue dressing changes and home health nurses as ordered. I will see him back in the [facility] in 4 weeks. Subjective Date/time seen: 11/06/24 15:46 Interval history: Patient returns [facility] for 3 week interval evaluation of right dorsal foot wound. He continues to do well. He walks very short distances with the right postop shoe in place. continues to dress it with counter server gel into the wound and wound care nurses are seeing him twice a week. Exam Extrem: Other: The patient is able to move all of his right toes. There is mild swelling of the foot but it gets better if he keeps his foot up. The dorsal forefoot wound now measures 4.5x7x0.7cm. There is excellent granulation tissue throughout 75% of the wound at the base. There is contraction of the wound and the extensor tendons to the 2nd, 3rd, and 4th toes are completely covered by granulation tissue no longer exposed. The extensor tendon to the 5th toe is still visible but there is no purulence or drainage to the lateral part of the wound. There is a small 1.5x1.5 scabbed on the tip of the right 5th toe but the remaining part of the toe was all viable. The small wound on the plantar surface of the right forefoot is completely closed.
--- NOTE | 2024-12-11 09:27 | P.PN_ITS ---
Progress Note: A&P Assessment and Plan (1) Type 2 diabetes mellitus with hyperglycemia: Qualifiers: Diabetes mellitus fdc insulin use: without finished goods stock clerk use Qualified Code(s): E11.65 - Type 2 diabetes mellitus with hyperglycemia Code(s): E11.65 - Type 2 diabetes mellitus with hyperglycemia Status: Acute Assessment and Plan: Patient is doing well being managed with his primary care physician. His right foot wound is closing which is partially attributed to better control of his diabetes. (2) Open wound of plantar aspect of right foot: Code(s): S91.301A - Unspecified open wound, right foot, initial encounter Status: Acute Assessment and Plan: Right foot wound is continue to heal well. Portion wound still remains with a small part of the extensor tendons to expose. It will continue to close over time. Recommend continued silver gel application to the wound and wrapping it with dry gauze. Will see him back in the [facility] in about 1 month. At that time will decide whether he can wear a sock and shoe and ambulate with shoe. Subjective Date/time seen: 12/05/24 Interval history: Patient comes for an interval follow-up on his right foot wound. He continues to do well. is helping to change the wound with silver gel each day. He has no complaints. His diabetes is under much better control with the management of his primary care physician. Exam Extrem: Other: On the dorsal aspect of his right lateral foot there is a 4.2x2.5x0.4cm wound which is continues to contract. There is granulation tissue present but small portion of the underlying extensor tendon is still exposed. The remaining portion the wound which was much larger 1 point is completely closed now with skin growth over the wound. The plantar surface wound has completely closed as well.
== END 2024-12-26 23:59 | disposition home or self-care (01) ==
LOC: ANHWOC 07:08
PROVIDERS: PCP Student in an Organized Health Care Education/Training Program; Visit Provider Surgery
DX: M72.6 Necrotizing fasciitis (principal); E11.65 Type 2 diabetes mellitus with hyperglycemia; S91.301D Unspecified open wound, right foot, subsequent encounter
CPT/HCPCS: 99214; G0463

== ENCOUNTER 2025-01-28 16:05 | Outpatient (CLI) | payer OTHER, SELFPAY ==
--- OUTSIDE RECORDS SUMMARY | 2025-01-28 16:18 | XMS_ITS | Clinical Summary ---
Author Organization [facility] Address [address] [place] [address] Care Team Providers Care Director Of Primary Care Name Role Phone Reji Cantu MD Primary [...] 3 (three) times a day 4 Active ibuprofen (ADVIL,MOTRIN) 600 mg tablet Take [...] Take 1 tablet by mouth daily 4 Active polyethylene glycol (MIRALAX) 17 gram/dose bulk [...] Additional Information Patient not taking.Reported on 11/11/2023 insulin glargine (LANTUS) 100 unit/mL (3 mL) pen for injection Inject 10 Units under the skin nightly 15 mL 4 Active pen needle, diabetic (Pen Needle) 32 gauge x /32 needle Use as directed once a day. 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 Admitted at [facility] 09/25-10/10/2023 after presenting with LLE pain and swelling, found to have necrotizing fasciitis s/p BKA 09/25, repeat debridements and 09/27, 09/29 (with additional 5cm resection), 10/03, and 10/04 (formalization). Initial tissue and bone cultures positive for Group B Streptococcus and mixed aerobic and anaerobic micro, tissue and tibia bone cultures 10/03 positive for Burotn albicans. Pathology from BKA formalization on 10/04 showed residual acute osteomyelitis, [...] yearly or sooner as indicated by your applications specialist. Recommend discontinuing glipizide and metformin at discharge. FSBG checks daily in AM, consider dexcom in outpatient setting Follow up with PCP; provide diabetes center number [phone] at discharge. Patient would like to think [...] remains stable for discharge 10/08 discharge to [facility] Hyperkalemia 09/27/2023 Assessment & Plan (10/04/2023 2:57 [...] to OSH ED and then transferred to [facility] ED 09/25 after presenting with 2 weeks [...] then chills and subjective fevers. Presented to [facility] and then transferred to [facility] 09/25 for surgical evalution of necrotizing fasciitis. [...] 10:20 AM CDT): 09/25: OR (Cynthia) LEFT sindhu BKA, wound vac placement. 09/27 returned to [...] will RTOR once cultures finalize, referral to [facility] 10/01 Cx still pending, WVac intact, [...] L BKA washout, [place] exchange 10/04 OR (Staszak): L BKA formalization 10/05 AFVSS, wbc elevated post-op, dressing change today, plan for wound watch x3d, local wound care, pending ampushield receipt 10/06 AFVSS, wbc 12.9 from 13.3, wound unchanged - sutures intact, abx and antifungal regimen per ID, local wound care, pending ampushield receipt --- f/u [facility] for suture removal evaluation 10/25 [...] - pending Necrotizing soft tissue infection 09/26/2023 Encounters Date Type Department Care Team Description 01/07/2025 Telephone [facility] Pod[facility] [address] [facility] [address] [place] [address] Cherrie Carr RN from Last 3 Months Surgical History Surgery Date Site/Laterality Comments BELOW KNEE LEG AMPUTATION Left Medical History Medical History Date Comments Diabetes mellitus Hypertension Family History Medical History Relation Name Comments Anesthesia problems Neg Hx Malig Hypertension Neg Hx Malig Hyperthermia Neg Hx Pseudochol deficiency Neg Hx Social History Tobacco Use Types Packs/Day Years Used Date Smoking Tobacco: Never Smokeless Tobacco: Never Tobacco Cessation:Counseling Given: Not Answered AUDIT-C Answer Date Recorded Q1: How often do you have a drink containing alc ohol? Never 12/09/2023 Average Number of Drinks Not on file Frequency of Binge Drinking Not on file 11/17 Hunger Vital Sign Answer Date Recorded Within [...] on file Legal Sex Male 8:46 AM [employer] Gender Identity Not on file Sexual Orientation [...] 09/17, 10/06/2023, Additional history exists Influenza Vaccine (#1) 2024 Procedures Procedure Name Priority Date/Time Associated [...] Sanches MD LAB BLOOD ORDERABLES Final Result [facility] Department [place] [address] * (ABNORMAL) Hemoglobin A1c (09/27/2023 6:00 AM CDT) Hgb A1C 7.5(H) 4.0 - 5.6 % Estimated Average Glucose 169 mg/dL PEGGY [facility] Comment: The ADA recommends reporting an estimated [...] MD LAB BLOOD ORDERABLES Danielle l Result [facility] Department [place] [address] * (ABNORMAL) Lipid panel (09/27/2023 6:00 AM [...] on 2017. Triglycerides 156(H) <=149 mg/dL PEGGY [facility]ARK Comment: Interpretive Data Ages [...] on 2017. HDL 22(L) >=40 mg/dL PE[facility] Comment: Interpretive Data Ages < or = [...] 2017. LDL, calculated 61 <=129 mg/dL PEGGY [facility] Comment: Interpretive Data Ages < or = [...] Pediatrics 2011;128:S213 2. NCEP Expert Panel. Circulation 2003;110:227 Current Interpretive Data was last revised on 2017. Non-HDL Cholesterol 92 mg/dL PEGGY [facility] Comment: Interpretive Data Ages < or = [...] Pediatrics 2011;128:S213 2. NCEP Expert Panel. Circulation 2003;110:227 Current Interpretive Data was last revised on 2017. Chol/HDL ratio [address] [facility] Blood 09/27/2023 6:00 AM CDT 09/27/2023 6:25 AM CDT us Tyler Marie MD LAB BLOOD ORDERABLES Danielle toñito Result [facility] Department [place] [address] from Last 3 Months or Most Recently Relevant to Health Maintenance Insurance CHOICE PLUS Advance Directives For more information, please contact: [phone] * Full Code (Latest Code Status on File) Date Activated Date Inactivated Comments 09/27/2023 12:45 AM 10/09/2023 8:08 PM Care Teams Director Of Primary Care Relationship Specialty Start Date End Date Reji Cantu MD [address] [place] [address] PCP - General Family Practice 09/27/23
[2025-01-28 19:03] LABS: Hematocrit 47.5 % (42.0-52.0); Hemoglobin 15.4 g/dL (14.0-18.0); Immature Granulocyte Percent A 0.3 % (0-0.5); Lymphocytes Absolute Auto 2.00 K/mm3 (0.9-3.2); Mean Corpuscular HGB Conc 32.4 g/dl (32-36); Mean Corpuscular Hemoglobin 27.1 pg (26-34); Mean Corpuscular Volume 83.6 fl (80-100); Nucleated Red Blood Cells Absolute Auto 0.000 K/mm3 (0.0-0.012); Nucleated Red Blood Cells Perc 0.0 % (0.0-0.2); Platelet Count Result 263 k/mm3 (150-375); Red Blood Count 5.68 M/mm3 (4.6-6.20); White Blood Count 6.6 K/mm3 (4.5-10.0)
[2025-01-28 19:28] LABS: Alanine Aminotransferase 24 U/L (6-50); Albumin Level 4.0 g/dL (3.5-5.1); Alkaline Phosphatase 86 U/L (38-126); Anion Gap 6 mmol/L (4-12); Aspartate Amino Transferase 26 U/L (17-59); Bilirubin,Total 1.6 mg/dL (0.2-1.3); Blood Urea Nitrogen 11 mg/dL (9-20); Calcium 8.8 mg/dL (8.4-10.2); Carbon Dioxide 27 mmol/L (22-30); Chloride 105 mmol/L (98-107); Estimated Glomerular Filt Rate > 60; Glucose 112 mg/dL (65-110); Potassium 4.6 mmol/L (3.4-5.0); Sodium 138 mmol/L (137-145); Total Protein 7.3 g/dL (6.3-8.2)
[2025-01-28 19:48] LABS: Hemoglobin A1C 6.0 % (<5.7)
== END 2025-01-28 16:06 | disposition home or self-care (01) ==
LOC: ANHGOSHLAB 16:06
PROVIDERS: PCP Student in an Organized Health Care Education/Training Program; Visit Provider Student in an Organized Health Care Education/Training Program
DX: E11.65 Type 2 diabetes mellitus with hyperglycemia (principal); I10 Essential (primary) hypertension; D64.9 Anemia, unspecified
CPT/HCPCS: 36415; 80053; 83036; 85025

== ENCOUNTER 2025-02-27 08:37 | Outpatient (RCR) | payer OTHER, SELFPAY ==
[2024-12-27 00:05] VITALS: BMI 38.9
--- NOTE | 2025-01-03 20:20 | WPDPN ---
Progress Note: A&P Assessment and Plan (1) Penetrating foot wound: Qualifiers: Encounter type: initial encounter Laterality: right Qualified Code(s): S91.331A - Puncture wound without foreign body, right foot, initial encounter Code(s): S91.339A - Puncture wound without foreign body, unspecified foot, initial encounter Status: Acute Assessment and Plan: The right foot wound continues to heal very nicely. Slow but it is gradual. The extensor tendon and to the right 5th toe is starting to get some granulation tissue over the top of it. The wound on the plantar surface is completely closed and healed. (2) Type 2 diabetes mellitus with hyperglycemia: Qualifiers: Diabetes mellitus terminal make up operator insulin use: without detention use Qualified Code(s): E11.65 - Type 2 diabetes mellitus with hyperglycemia Code(s): E11.65 - Type 2 diabetes mellitus with hyperglycemia Status: Acute Assessment and Plan: Patient is doing well being managed with his primary care physician. His right foot wound is closing which is partially attributed to better control of his diabetes. (3) Open wound of plantar aspect of right foot: Code(s): S91.301A - Unspecified open wound, right foot, initial encounter Status: Acute Assessment and Plan: Continue applying silver gel to the wound and wrapping with dry gauze. Hopefully will be too long that he can get fitted for a new orthotic shoe with an insert. [place] [facility] [place] 3 [place] 4 weeks. Subjective Date/time seen: 01/02/25 Interval history: Patient here to see me in the [facility] for 1 month follow-up on his right dorsal chronic foot wound. He is doing very well has no complaints. Still getting treatment with applying for Gel and dry gauze on top of the wound. No complaints overall. Exam Skin: Other: The right foot wound still continues to heal slowly but gradually. Excellent granulation tissues noted the edges. There is contraction of the wound around the edges. The underlying exposed extensor tendon to the 5th toe has no darkness to the tissue and has some granulation tissue starting to grow over the tendon. He is able to move all of his toes. The right 5th toe is still very viable although the patient cannot move it at this time. Expected mild swelling of the foot is noted. No other wounds. The wound now measures 2.5x1.4x0.2cm.
--- NOTE | 2025-01-31 00:52 | P.PN_ITS ---
Progress Note: A&P Assessment and Plan (1) Necrotizing fasciitis of ankle and foot: Code(s): M72.6 - Necrotizing fasciitis Status: Acute Assessment and Plan: The right foot wound is healing very well. It is nearly closed. Continue silver gel onto the wound for now. Cover with dry dressing. Will have come back to see me in the Wound Care Clinic in 1 month. I would suspect at that time it will be completely closed. At that time he can then start using a regular shoe. 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 His hemoglobin A1c is less than 7. Continue optimal glucose management. Subjective Date/time seen: 01/30/25 Interval history: Patient follows up for 1 month wound check on his right foot wound. Doing very well. Wound continues to rapidly decreased in size. He is applying silver gel to the wound and a dry dressing. Exam Extrem: Other: Diabetic wound on the dorsal aspect of the right lateral foot continues to rapidly contract. It now only measures 1.7x1x0.2cm. Granulation tissue noted throughout the whole base. Minimal drainage. No erythema. Minimal swelling to the foot. It would move all his toes in all the toes are viable. No other wounds.
--- NOTE | 2025-02-28 16:07 | WPDPN ---
Progress Note: A&P Assessment and Plan (1) Necrotizing fasciitis of ankle and foot: Code(s): M72.6 - Necrotizing fasciitis Status: Acute Assessment and Plan: Prior necrotizing soft tissue infection of the distal right forefoot has now pretty much completely healed. The residual wound is now very small and superficial. Instructed the patient continue applying silver gel to the wound and cover with dry dressing for next couple of weeks until it completely closes. At that time he will not need special care for the wound. He return to see me in the Wound Care Clinic on a p.r.n. basis. He was also instructed good general foot care and skin care and a he had good control of his diabetes to decrease chances of lower limb amputation. Return to see me p.r.n.. Subjective Date/time seen: 02/27/25 Interval history: Patient returns to [facility] for likely as final wound check for the right foot wound. He is doing very well. Has no complaints whatsoever. Continues to apply small amount of over gel to the small open wound on the dorsal aspect of the distal right foot. Exam Extrem: Other: The right foot wound is now 98% closed. There was still a small opening measuring 0.9x0.5x0.2cm. There is excellent granulation tissue throughout the whole base. Scant amount of serous drainage. No edema of the foot and no cellulitic changes.
== END 2025-04-02 10:31 | disposition home or self-care (01) ==
LOC: ANHWOC 08:37
PROVIDERS: PCP Student in an Organized Health Care Education/Training Program; Visit Provider Surgery
DX: M72.6 Necrotizing fasciitis (principal); E11.65 Type 2 diabetes mellitus with hyperglycemia; S91.301D Unspecified open wound, right foot, subsequent encounter
CPT/HCPCS: 99213; G0463